=== PATIENT | female | born 1945 | race Caucasian/White ===

== ENCOUNTER 2017-12-01 04:32 | Inpatient (IN) ==
[2017-12-01] MEDS ORDERED: 0.9 % Sodium Chloride 1,000 ML IVC ONE (04:41)
[2017-12-01] MEDS ORDERED: Ondansetron 4 MG/2 ML VIAL IVP ONE (04:48)
[2017-12-01] MEDS ORDERED: Isovue-370 500 ML INFUS..BTL IV ONE (04:49)
--- NOTE | 2017-12-01 04:51 | Emergency Department Note ---
Disposition Clinical Impression: Irregular cardiac rhythm Sepsis Qualifiers: Sepsis type: sepsis due to unspecified organism Qualified Code(s): A41.9 - Sepsis, unspecified organism Urinary tract infection Qualifiers: Urinary tract infection type: site unspecified Hematuria presence: with hematuria Qualified Code(s): N39.0 - Urinary tract infection, site not specified Disposition: Still a Patient Condition: Fair Referrals: Marquis Cook MD [Primary Care Provider] - Forms: ED Satisfaction Letter Nausea/Vomiting/Diarrhea HPI - General Chief complaint: ED Nausea/Vomiting/Diarrhea Stated complaint: general illness Time Seen by Provider: 12/01/17 04:36 Source: patient, family, EMS Mode of arrival: EMS Limitations: no limitations Nursing Notes Reviewed: Yes Vital Signs Reviewed: Yes - History of Present Illness HPI Narrative: 72-year-old female history of CAD presents emergency department ED via EMS with concern of nausea vomiting abdominal pain possible fall. She woke up this morning at 2 o'clock meeting to use the restroom and felt nauseated has been thrown up. She reports a stabbing abdominal pain that is all over. She is unsure if she fell. 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 She denies any headache or neck pain. Denies any chest pain or shortness of breath. Denies cough congestion or fever. She has been experiencing some loose stools. States she is not feeling well. Patient takes Plavix for her history of coronary artery disease and stent placement. On arrival here to the emergency department patient is febrile 103.1 and tachycardic. Pt Subjective Complaint: nausea, vomiting, abdominal pain - Related Data Home Medications Medication Instructions Recorded Confirmed ALPRAZolam [Xanax 0.5 MG Tablet] 0.5 mg PO BID PRN 06/24/16 06/24/16 Allopurinol [Zyloprim 100 MG] 100 mg PO DAILY 06/24/16 06/24/16 Atorvastatin [Lipitor] 40 mg PO HS 06/24/16 06/24/16 Cholecalciferol (Vitamin D3) 1,000 unit PO DAILY 06/24/16 06/24/16 [Vitamin D] Clopidogrel [Plavix] 75 mg PO DAILY 06/24/16 06/24/16 DiphenhydraMINE [Benadryl] 25 mg PO Q4HR PRN 06/24/16 06/24/16 Furosemide [Lasix] 20 mg PO DAILY 06/24/16 06/24/16 Lactobacillus Acidophilus 1 each PO DAILY 06/24/16 06/24/16 [Acidophilus] Lisinopril [Zestril] 20 mg PO DAILY 06/24/16 06/24/16 Nadolol 60 mg PO DAILY 06/24/16 06/24/16 Oxycodone HCl/Acetaminophen 1 each PO TID PRN 06/24/16 06/24/16 [Percocet 5-325 mg Tablet] Pantoprazole Sodium [Protonix] 40 mg PO DAILY 06/24/16 06/24/16 Potassium Chloride [K-Tab ER] 20 meq PO DAILY 06/24/16 06/24/16 Sertraline [Zoloft] 100 mg PO DAILY 06/24/16 06/24/16 Allergies Allergy/AdvReac Type Severity Reaction Status Date / Time azithromycin [From Zithromax] Allergy Vomiting Verified 06/24/16 09:19 ciprofloxacin [From Cipro] Allergy Vomiting Verified 06/24/16 09:19 sulfamethoxazole Allergy Vomiting Verified 06/24/16 09:19 [From Bactrim] trimethoprim [From Bactrim] Allergy Vomiting Verified 06/24/16 09:19 All systems ED: reviewed and negative except as stated. Review of Systems: As Per HPI Constitutional: Denies: fever, chills ENT ED: Denies: congestion Cardiovascular: Denies: chest pain Respiratory: Denies: cough, dyspnea Gastrointestinal: Reports: abdominal pain, nausea, vomiting, diarrhea Genitourinary: Denies: dysuria Musculoskeletal: Denies: back pain, neck pain Neurological: Denies: headache, weakness, numbness Past Medical History - Past Medical History Attestation: Yes The following information was validated with the patient. Source: patient Medical history: Reports: DVT, diabetes, fibromyalgia, hypertension, TIA Surgical history: Reports: CORRIE/BSO Psychiatric history: Reports: depression - Social History Smoking Status: Never smoker Smokeless Tobacco Status: No Alcohol use: Reports: none Drug use: Reports: none Physical Exam - General Limitations: no limitations General appearance: alert, anxious, other (Tremulous) - Head Head exam: atraumatic, normocephalic, normal inspection - Eye Eye exam: Present: normal appearance, PERRL, EOMI. Absent: nystagmus - ENT ENT exam: normal exam, normal oropharynx, mucous membranes dry - Expanded ENT Exam Mouth exam: Present: normal external inspection Teeth exam: Present: normal inspection Throat exam: Present: normal inspection - Neck Neck exam: Present: normal inspection, full ROM, trachea midline. Absent: tenderness - Expanded Neck Exam Neck exam focused ED: Absent: midline tenderness - Chest Chest inspection: Present: normal inspection, symmetric chest wall rise - Respiratory Respiratory exam: Present: normal lung sounds bilaterally. Absent: respiratory distress, wheezes - Cardiovascular Cardiovascular exam: Present: normal rhythm, tachycardia, normal heart sounds - Expanded Cardiovascular Exam Peripheral pulses: 2+: radial (R), radial (L) - Abdominal Exam Abdominal exam: Present: soft, tenderness, guarding, normal bowel sounds. Absent: distention, rebound, rigidity - Extremities Exam Extremities exam: Present: normal inspection, full ROM, other (Her lower extremities are shaking in tremulous). Absent: tenderness, pedal edema - Back Exam Back exam: Present: normal inspection, full ROM. Absent: tenderness, CVA tenderness (R), CVA tenderness (L) - Neurological Exam Neurological exam: Present: alert, oriented X3, CN II-XII intact - Expanded Neurological Exam Patient oriented to: Present: person, place, time Speech: Present: fluid speech Cranial nerves: EOM function (II, III, IV, ): Normal, facial sensation (V): Normal, facial palsy (VII): Normal, gag reflex (IX): Normal, spinal accessory function (XI): Normal, tongue deviation (XII): Normal Motor strength - LUE: 5/5 Motor strength - RUE: 5/5 Motor strength - LLE: 5/5 Motor strength - RLE: 5/5 Upper motor neuron exam: tamika neglect: Absent bilaterally, pronator drift: Absent bilaterally Sensory exam upper extremity: light touch: Normal Sensory exam lower extremity: light touch: Normal Coma Scale Eye Opening: Spontaneous Coma Scale Motor Response: Obeys Commands Coma Scale Verbal Response: Oriented Coma Scale Total: 15 - Psychiatric Psychiatric exam: Present: normal affect, normal mood - Skin Skin exam: Present: warm, dry, intact, normal color, diaphoresis Course Course Narrative: Patient presents with acute onset nausea vomiting and potential fall. She does not recall falling but was on the ground. She takes Plavix. She is complaining of some of abdominal pain and loose stools. Review for vitals shows tachycardia and fever. Concerning for possible occult sepsis. On examination neurologic exam is normal without focal deficits. Denies any neck pain. Lungs are clear to auscultation. She is tachycardic and febrile. Denies any urinary symptoms. Her abdomen is a diffusely tender. Concerning for possible GI infection or UTI. Sepsis workup initiated. Will also obtain CT scan of the head abdomen and pelvis chest and cervical spine. She is slightly hypoxic 93% in tachycardic concerning for possible atypical pneumonia also possible pulmonary embolism. - Reevaluation(s) Reevaluation #1: Patient had a run of stable ventricular tachycardia. Her vitals remained stable at that time. No change in mental status. She quickly converted to sinus rhythm. She denies any pain or distress at that time. She will be transferred to the trauma room and placed on the clinical research manager with pads. Will check a magnesium level emesis could be likely electrolyte related given her nausea and vomiting. We have noticed that she continues to have a restless leg and sometimes causes some artifact however looking at the rhythm strip there was a run that is very consistent with ventricular tachycardia. When the patient makes a conscious effort to stop her legs she remains in normal sinus rhythm. To you to monitor. She continues to deny any chest pain. She reports some nausea and abdominal discomfort. CT images pending and will wait until she is more stable. Time: 05:33 Reevaluation #2: Images is still pending. Urinalysis is consistent with infection. She has a leukocytosis of 13. As she meets sepsis criteria she will be treated empirically with Zosyn vancomycin pending other sources of infection. She has pereira-sensitive from her prior urine culture to Klebsiella. Time: 06:40 Reevaluation #3: Patient signed out to Dr. Rolon. Please see note for further details and final disposition. Time: 06:55 Vital Signs Temperature 103.1 F H 12/01/17 04:41 Pulse Rate 127 12/01/17 04:41 Respiratory Rate 22 12/01/17 04:41 Blood Pressure 131/88 12/01/17 04:41 O2 Sat by Pulse Oximetry 92 12/01/17 04:41 Temperature 103.1 F H 12/01/17 04:41 Pulse Rate 96 12/01/17 06:11 Respiratory Rate 18 12/01/17 06:11 Blood Pressure 131/97 12/01/17 06:11 O2 Sat by Pulse Oximetry 96 12/01/17 06:11 Oxygen Delivery Oxygen Delivery Nasal Cannula Nausea/Vomiting/Diarrhea - [facility] Narrative Medical decision making narrative: Patient was discussed with my attending physician who agrees with ED management and final disposition. They independently evaluated the patient. Please refer to their attestation to this encounter for additional information. This note was generated by [employer] voice recognition software and as a result grammatical or spelling errors may occur using this program. - Medical Records Medical records reviewed: Yes I reviewed the patient's medical records. - Lab Data Lab results reviewed: Yes I reviewed the patient's lab results. Result diagrams: 12/01/17 05:00 Lab Results 12/01/17 12/01/17 12/01/17 Range/Units 05:00 05:00 05:00 WBC 13.5 H (4.3-11.1) K/mcL RBC 5.23 H (3.82-4.97) M/mcL Hgb 14.5 (11.5-15.4) g/dL Hct 42.6 (35.3-44.9) % MCV 81.5 L (83.0-100.0) fL MCH 27.7 L (28.0-33.3) pg MCHC 34.0 (31.6-35.5) g/dL RDW 13.7 (11.5-14.5) % Plt Count 221 (140-400) K/mcL MPV 10.1 (9.4-12.4) fL Immature Gran % 0.5 (0-4) % Seg Neutrophils % 94.1 % Lymphocytes % 3.4 % Monocytes % 1.3 % Eosinophils % 0.4 % Basophils % 0.3 % Neutrophils # 12.7 H (1.6-8.9) K/mcL Lymphocytes # 0.5 L (0.6-4.6) K/mcL Monocytes # 0.2 (0.0-1.3) K/mcL Eosinophils # 0.1 (0.0-0.6) K/mcL Basophils # 0.0 (0.0-0.2) K/mcL PT 12.5 H (9.4-12.1) Seconds INR 1.1 APTT 27.8 (26.0-36.0) Seconds Total Bilirubin 0.7 (0.3-1.0) mg/dL Direct Bilirubin 0.2 (0.0-0.2) mg/dL Indirect Bilirubin 0.5 (0.0-1.2) mg/dL AST 18 (13-39) Units/L ALT 18 (7-52) Units/L Alkaline Phosphatase 139 H (34-104) Units/L Troponin I 0.03 (< 0.04) ng/mL Serum Total Protein 6.9 (6.4-8.9) g/dL Albumin 4.4 (3.5-5.7) g/dL Globulin 2.5 (2.4-3.5) g/dL Albumin/Globulin Ratio 1.8 (1.1-2.2) Lipase 57 (11-82) Units/L Urine Color (Yellow) Urine Clarity (Clear) Urine pH (5.0-8.0) pH Units Ur Specific [place] (1.010-1.025) Urine Protein (Neg-Trace) mg/dL Urine Glucose (UA) (Normal) mg/dL Urine Ketones (Negative) mg/dL Urine Blood (Negative) Urine Nitrite (Negative) Urine Bilirubin (Negative) Urine Urobilinogen (Normal) mg/dL Ur Leukocyte Esterase (Negative) 12/01/17 Range/Units 06:10 WBC (4.3-11.1) K/mcL RBC (3.82-4.97) M/mcL Hgb (11.5-15.4) g/dL Hct (35.3-44.9) % MCV (83.0-100.0) fL MCH (28.0-33.3) pg MCHC (31.6-35.5) g/dL RDW (11.5-14.5) % Plt Count (140-400) K/mcL MPV (9.4-12.4) fL Immature Gran % (0-4) % Seg Neutrophils % % Lymphocytes % % Monocytes % % Eosinophils % % Basophils % % Neutrophils # (1.6-8.9) K/mcL Lymphocytes # (0.6-4.6) K/mcL Monocytes # (0.0-1.3) K/mcL Eosinophils # (0.0-0.6) K/mcL Basophils # (0.0-0.2) K/mcL PT (9.4-12.1) Seconds INR APTT (26.0-36.0) Seconds Total Bilirubin (0.3-1.0) mg/dL Direct Bilirubin (0.0-0.2) mg/dL Indirect Bilirubin (0.0-1.2) mg/dL AST (13-39) Units/L ALT (7-52) Units/L Alkaline Phosphatase (34-104) Units/L Troponin I (< 0.04) ng/mL Serum Total Protein (6.4-8.9) g/dL Albumin (3.5-5.7) g/dL Globulin (2.4-3.5) g/dL Albumin/Globulin Ratio (1.1-2.2) Lipase (11-82) Units/L Urine Color Yellow (Yellow) Urine Clarity Cloudy A (Clear) Urine pH 5.0 (5.0-8.0) pH Units Ur Specific [place] 1.023 (1.010-1.025) Urine Protein 100 H (Neg-Trace) mg/dL Urine Glucose (UA) Normal (Normal) mg/dL Urine Ketones Negative (Negative) mg/dL Urine Blood Moderate H (Negative) Urine Nitrite Positive A (Negative) Urine Bilirubin Negative (Negative) Urine Urobilinogen Normal (Normal) mg/dL Ur Leukocyte Esterase Large H (Negative) - EKG Data EKG attestation: Yes I reviewed and interpreted this EKG. EKG results narrative: EKG performed 522 normal sinus rhythm 10 9 bpm, normal axis, good R wave progression, no ST elevations or depressions. Compared to prior EKG performed 09/08/2017 normal sinus rhythm 75 bpm with similar consistent findings. S.B.A.R. - [email or web address] Situation: Demographics, MOA Background: Presenting Complaint, Relevant PMH, Meds, & Allergies Assessment: Vital Signs, Course and respsone to treatment, Exam Concerns, Patient/Family Expectation, Pertinant Lab Results, Outstanding Labs Recommendation: Barrier(s) to disposition, Recommendation based on pending studies, treatments, or consults S.B.A.RCollin Report Given to: Dr. Thom Hdez Repor Time: 06:55
[2017-12-01 05:13] LABS: Basophils % 0.3 %; Eosinophils # 0.1 K/mcL (0.0-0.6); Eosinophils % 0.4 %; Hematocrit 42.6 % (35.3-44.9); Hemoglobin 14.5 g/dL (11.5-15.4); Immature Granulocytes % 0.5 % (0-4); Lymphocytes # 0.5 K/mcL (0.6-4.6); Lymphocytes % 3.4 %; Mean Corpuscular Hemoglobin 27.7 pg (28.0-33.3); Mean Corpuscular Volume 81.5 fL (83.0-100.0); Mean Platelet Volume 10.1 fL (9.4-12.4); Monocytes # 0.2 K/mcL (0.0-1.3); Monocytes % 1.3 %; Neutrophils # 12.7 K/mcL (1.6-8.9); Platelet Count 221 K/mcL (140-400); Red Blood Count 5.23 M/mcL (3.82-4.97); Red Cell Distribution Width 13.7 % (11.5-14.5); Segmented Neutrophils % 94.1 %
[2017-12-01 05:18] LABS: INR 1.1; Prothrombin Time 12.5 Seconds (9.4-12.1)
[2017-12-01 05:20] LABS: Activated Partial Thrombo Time 27.8 Seconds (26.0-36.0)
[2017-12-01 05:33] LABS: Albumin 4.4 g/dL (3.5-5.7); Albumin/Globulin Ratio 1.8 (1.1-2.2); Bilirubin,Direct 0.2 mg/dL (0.0-0.2); Bilirubin,Indirect 0.5 mg/dL (0.0-1.2); Bilirubin,Total 0.7 mg/dL (0.3-1.0); Globulin 2.5 g/dL (2.4-3.5); Total Protein 6.9 g/dL (6.4-8.9)
[2017-12-01 05:34] LABS: Troponin I 0.03 ng/mL (< 0.04)
--- NOTE | 2017-12-01 05:58 | Emergency Department Note ---
Disposition Clinical Impression: Sepsis Qualifiers: Sepsis type: sepsis due to unspecified organism Qualified Code(s): A41.9 - Sepsis, unspecified organism Disposition: Admitted As Inpatient Forms: ED Satisfaction Letter General Adult HPI - General Chief complaint: ED Nausea/Vomiting/Diarrhea Stated complaint: general illness Time Seen by Provider: 12/01/17 04:36 Source: patient, family, EMS - History of Present Illness Pain Scale: 0 - Related Data Home Medications Medication Instructions Recorded Confirmed ALPRAZolam [Xanax 0.5 MG Tablet] 0.5 mg PO BID PRN 06/24/16 06/24/16 Allopurinol [Zyloprim 100 MG] 100 mg PO DAILY 06/24/16 06/24/16 Atorvastatin [Lipitor] 40 mg PO HS 06/24/16 06/24/16 Cholecalciferol (Vitamin D3) 1,000 unit PO DAILY 06/24/16 06/24/16 [Vitamin D] Clopidogrel [Plavix] 75 mg PO DAILY 06/24/16 06/24/16 DiphenhydraMINE [Benadryl] 25 mg PO Q4HR PRN 06/24/16 06/24/16 Furosemide [Lasix] 20 mg PO DAILY 06/24/16 06/24/16 Lactobacillus Acidophilus 1 each PO DAILY 06/24/16 06/24/16 [Acidophilus] Lisinopril [Zestril] 20 mg PO DAILY 06/24/16 06/24/16 Nadolol 60 mg PO DAILY 06/24/16 06/24/16 Oxycodone HCl/Acetaminophen 1 each PO TID PRN 06/24/16 06/24/16 [Percocet 5-325 mg Tablet] Pantoprazole Sodium [Protonix] 40 mg PO DAILY 06/24/16 06/24/16 Potassium Chloride [K-Tab ER] 20 meq PO DAILY 06/24/16 06/24/16 Sertraline [Zoloft] 100 mg PO DAILY 06/24/16 06/24/16 Allergies Allergy/AdvReac Type Severity Reaction Status Date / Time azithromycin [From Zithromax] Allergy Vomiting Verified 06/24/16 09:19 ciprofloxacin [From Cipro] Allergy Vomiting Verified 06/24/16 09:19 sulfamethoxazole Allergy Vomiting Verified 06/24/16 09:19 [From Bactrim] trimethoprim [From Bactrim] Allergy Vomiting Verified 06/24/16 09:19 Past Medical History - Past Medical History Medical history: Reports: DVT, diabetes, fibromyalgia, hypertension, TIA Surgical history: Reports: CORRIE/BSO Psychiatric history: Reports: depression - Social History Smoking Status: Never smoker Smokeless Tobacco Status: No Alcohol use: Reports: none Drug use: Reports: none Physical Exam - General General appearance: alert Course Vital Signs Temperature 103.1 F H 12/01/17 04:41 Pulse Rate 127 12/01/17 04:41 Respiratory Rate 22 12/01/17 04:41 Blood Pressure 131/88 12/01/17 04:41 O2 Sat by Pulse Oximetry 92 12/01/17 04:41 Temperature 103.1 F H 12/01/17 04:41 Pulse Rate 100 12/01/17 05:47 Respiratory Rate 28 12/01/17 05:47 Blood Pressure 130/55 12/01/17 05:47 O2 Sat by Pulse Oximetry 96 12/01/17 05:47 Oxygen Delivery Oxygen Delivery Nasal Cannula Medical Decision Making - Lab Data Result diagrams: 12/01/17 05:00 Lab Results 12/01/17 12/01/17 12/01/17 Range/Units 05:00 05:00 05:00 WBC 13.5 H (4.3-11.1) K/mcL RBC 5.23 H (3.82-4.97) M/mcL Hgb 14.5 (11.5-15.4) g/dL Hct 42.6 (35.3-44.9) % MCV 81.5 L (83.0-100.0) fL MCH 27.7 L (28.0-33.3) pg MCHC 34.0 (31.6-35.5) g/dL RDW 13.7 (11.5-14.5) % Plt Count 221 (140-400) K/mcL MPV 10.1 (9.4-12.4) fL Immature Gran % 0.5 (0-4) % Seg Neutrophils % 94.1 % Lymphocytes % 3.4 % Monocytes % 1.3 % Eosinophils % 0.4 % Basophils % 0.3 % Neutrophils # 12.7 H (1.6-8.9) K/mcL Lymphocytes # 0.5 L (0.6-4.6) K/mcL Monocytes # 0.2 (0.0-1.3) K/mcL Eosinophils # 0.1 (0.0-0.6) K/mcL Basophils # 0.0 (0.0-0.2) K/mcL PT 12.5 H (9.4-12.1) Seconds INR 1.1 APTT 27.8 (26.0-36.0) Seconds Total Bilirubin 0.7 (0.3-1.0) mg/dL Direct Bilirubin 0.2 (0.0-0.2) mg/dL Indirect Bilirubin 0.5 (0.0-1.2) mg/dL AST 18 (13-39) Units/L ALT 18 (7-52) Units/L Alkaline Phosphatase 139 H (34-104) Units/L Troponin I 0.03 (< 0.04) ng/mL Serum Total Protein 6.9 (6.4-8.9) g/dL Albumin 4.4 (3.5-5.7) g/dL Globulin 2.5 (2.4-3.5) g/dL Albumin/Globulin Ratio 1.8 (1.1-2.2) Lipase 57 (11-82) Units/L Attestation Statement - Attestation Attestation: I examined this patient and my medical decision-making was reviewed with the Resident Physician. I agree with the documented findings, disposition and treatment plan as described except to the extent set forth below. 72 year old female presents to the ED with complaints of NVD and is febrile and tachycardiac and there is concern for SEPSIS at this time. Lashay states that she owkeup at 0230 this monring and was feel syncopal and tried to urinate and then called EMS due to weakness. Lashay has restless leg syndrome and at times when her legs shake it appers to have runs of Vtach but when she stops they return to regular rhythm. That being siad there was a run for about 2-3 secondary of possible polymorphic Vtach, we will obtain a magnesium. Lashay will have labs for sepsis and CT scan accordingly and then admit ot medicine. IVF currenlty per sepsis treatment and ABX therapy once source is found
[2017-12-01] MEDS ORDERED: Piperacillin/Tazobactam 3.375 GM in 0.9 % Sodium Chloride Mini Bag 100 ML IVPB ONE (06:23)
[2017-12-01 06:33] LABS: Bilirubin,Urine Negative (Negative); Blood,Urine Moderate (Negative); Clarity,Urine Cloudy (Clear); Color,Urine Yellow (Yellow); Glucose,Urine (UA) Normal (Normal); Ketones,Urine Negative (Negative); Leukocyte Esterase,Urine Large (Negative); Nitrite,Urine Positive (Negative); Protein,Urine 100 mg/dL (Neg-Trace); Specific Gravity,Urine 1.023 (1.010-1.025); Urobilinogen,Urine Normal (Normal)
[2017-12-01 06:40] LABS: Bacteria,Urine Many per hpf (None-Few); Squamous Epithelial Cell,Urine Many per lpf (None-Few); WBC,Urine TNTC per hpf (0-3)
--- NOTE | 2017-12-01 06:47 | Emergency Department Note ---
Disposition Clinical Impression: Irregular cardiac rhythm, Enteritis Sepsis Qualifiers: Sepsis type: sepsis due to unspecified organism Qualified Code(s): A41.9 - Sepsis, unspecified organism Urinary tract infection Qualifiers: Urinary tract infection type: site unspecified Hematuria presence: with hematuria Qualified Code(s): N39.0 - Urinary tract infection, site not specified Disposition: Admitted As Inpatient Condition: Fair Referrals: Marquis Cook MD [Primary Care Provider] - Forms: ED Satisfaction Letter Time of Disposition: 09:27 Nausea/Vomiting/Diarrhea HPI - General Chief complaint: ED Nausea/Vomiting/Diarrhea Stated complaint: general illness Time Seen by Provider: 12/01/17 04:36 Source: patient, family, EMS Mode of arrival: EMS Limitations: no limitations Nursing Notes Reviewed: Yes Vital Signs Reviewed: Yes - History of Present Illness Pt Subjective Complaint: nausea, vomiting, abdominal pain - Related Data Home Medications Medication Instructions Recorded Confirmed ALPRAZolam [Xanax 0.5 MG Tablet] 0.5 mg PO BID PRN 06/24/16 12/01/17 Allopurinol [Zyloprim 100 MG] 100 mg PO DAILY 06/24/16 12/01/17 Atorvastatin [Lipitor] 40 mg PO HS 06/24/16 12/01/17 Cholecalciferol (Vitamin D3) 1,000 unit PO DAILY 06/24/16 12/01/17 [Vitamin D] Clopidogrel [Plavix] 75 mg PO DAILY 06/24/16 12/01/17 DiphenhydraMINE [Benadryl] 25 mg PO Q4HR PRN 06/24/16 12/01/17 Lisinopril [Zestril] 10 mg PO DAILY 06/24/16 12/01/17 Nadolol 60 mg PO DAILY 06/24/16 12/01/17 Oxycodone HCl/Acetaminophen 1 each PO TID PRN 06/24/16 12/01/17 [Percocet 5-325 mg Tablet] Sertraline [Zoloft] 100 mg PO DAILY 06/24/16 12/01/17 Lansoprazole [Prevacid] 30 mg PO DAILY 12/01/17 12/01/17 Sitagliptin Phosphate [Januvia] 50 mg PO DAILY 12/01/17 12/01/17 Allergies Allergy/AdvReac Type Severity Reaction Status Date / Time azithromycin [From Zithromax] Allergy Vomiting Verified 06/24/16 09:19 ciprofloxacin [From Cipro] Allergy Vomiting Verified 06/24/16 09:19 sulfamethoxazole Allergy Vomiting Verified 06/24/16 09:19 [From Bactrim] trimethoprim [From Bactrim] Allergy Vomiting Verified 06/24/16 09:19 Constitutional: Denies: fever, chills ENT ED: Denies: congestion Cardiovascular: Denies: chest pain Respiratory: Denies: cough, dyspnea Gastrointestinal: Reports: abdominal pain, nausea, vomiting, diarrhea Genitourinary: Denies: dysuria Musculoskeletal: Denies: back pain, neck pain Neurological: Denies: headache, weakness, numbness Past Medical History - Past Medical History Medical history: Reports: DVT, diabetes, fibromyalgia, hypertension, TIA Surgical history: Reports: CORRIE/BSO Psychiatric history: Reports: depression - Social History Smoking Status: Never smoker Smokeless Tobacco Status: No Alcohol use: Reports: none Drug use: Reports: none Physical Exam - General Limitations: no limitations General appearance: alert, anxious, other (Tremulous) Course Course Narrative: Patient is a sign out from previous team. Please see their notes for any additional detail. In summary, patient is a 72-year-old female with past medical history of CAD, she presented today due to nausea, vomiting, diffuse abdominal pain, was found on ground by EMS. Possible fall. States that she has been vomiting since 2:00 this morning. Reported stabbing abdominal discomfort all over. She is not sure if she fell or hit her head. She denies any head or neck pain, chest pain, shortness breath, fevers. She has had some loose stools. Just generally feels unwell. Patient was febrile and tachycardic on presentation. Lab workup shows elevated white blood cell count, UTI. CT head, cervical spine, abdomen and pelvis, CT of the chest was ordered. Currently waiting on these results. Vancomycin and Zosyn have been started. Patient also had one 2-3 beat episode of V. tach while being monitored. No symptoms during that episode. 09:25 workup shows enteritis. Otherwise, head CT, cervical spine CT shows no acute abnormalities. Again, patient has UTI and is being treated with antibiotics at this time. Patient has been accepted to the hospitalist for further care. Cervical Spine CT 12/01/17 04:48 IMPRESSION: 1.No acute abnormality of the cervical spine. D/ / Vickey Santiago MD / Vickey Santiago MD Interpreting Provider: Vickey Santiago MD Head CT 12/01/17 04:48 IMPRESSION: No acute intracranial abnormality. Senescent changes including chronic microvascular change. Sphenoid sinus inflammation, unchanged from prior exam. D/ / 12/01/2017 08:24:35 Mine Brito MD / jacob Interpreting Provider: Mine Brito MD Abdomen/Pelvis CT 12/01/17 04:49 IMPRESSION: 1. Few non dilated fluid-filled loops of small bowel which may represent a small bowel enteritis. 2. Bibasilar atelectasis. 3. No urinary tract calcifications. D/ / Vickey Santiago MD / Vickey Santiago MD Interpreting Provider: Vickey Santiago MD Chest X-Ray 12/01/17 08:45 IMPRESSION: Suboptimal inspiration. No definite acute pulmonary finding. D/ / Errol Gomez MD / Errol Gomez MD Interpreting Provider: Errol Gomez MD Vital Signs Temperature 103.1 F H 12/01/17 04:41 Pulse Rate 127 12/01/17 04:41 Respiratory Rate 22 12/01/17 04:41 Blood Pressure 131/88 12/01/17 04:41 O2 Sat by Pulse Oximetry 92 12/01/17 04:41 Temperature 98.7 F 12/01/17 08:02 Pulse Rate 82 12/01/17 08:36 Respiratory Rate 16 12/01/17 08:36 Blood Pressure 119/52 12/01/17 08:36 O2 Sat by Pulse Oximetry 95 12/01/17 08:36 Oxygen Delivery Oxygen Delivery Nasal Cannula Nausea/Vomiting/Diarrhea - [facility] Narrative Medical decision making narrative: Patient is a sign out from previous team. Please see their notes for any additional detail. In summary, patient is a 72-year-old female with past medical history of CAD, she presented today due to nausea, vomiting, diffuse abdominal pain, was found on ground by EMS. Possible fall. States that she has been vomiting since 2:00 this morning. Reported stabbing abdominal discomfort all over. She is not sure if she fell or hit her head. She denies any head or neck pain, chest pain, shortness breath, fevers. She has had some loose stools. Just generally feels unwell. Patient was febrile and tachycardic on presentation. Lab workup shows elevated white blood cell count, UTI. CT head, cervical spine, abdomen and pelvis, CT of the chest was ordered. Currently waiting on these results. Vancomycin and Zosyn have been started. Patient also had one 2-3 beat episode of V. tach while being monitored. No symptoms during that episode. 09:25 workup shows enteritis. Otherwise, head CT, cervical spine CT shows no acute abnormalities. Again, patient has UTI and is being treated with antibiotics at this time. Patient has been accepted to the hospitalist for further care. This documentation is done with the assistance of Dragon dictation. Despite efforts made to ensure accuracy, there may be inaccuracies in sailing officer or spelling and typographical errors. I examined this patient and my medical decision-making was reviewed with the Resident Physician. I agree with the documented findings, disposition and treatment plan as described except to the extent set forth below. Patient is a sign out from the evening ER team, patient was found down on the floor. Getting CTs and x-rays. They thought she had SIRS And started on antibiotics. Waiting scan and then admit admission. Patient was seen this morning with me and Dr. Amador, agree with his evaluation management plan, I supervised the care of the patient's. Cervical Spine CT 12/01/17 04:48 IMPRESSION: 1.No acute abnormality of the cervical spine. D/ / Vickey Santiago MD / Vickey Santiago MD Interpreting Provider: Vickey Santiago MD Head CT 12/01/17 04:48 IMPRESSION: No acute intracranial abnormality. Senescent changes including chronic microvascular change. Sphenoid sinus inflammation, unchanged from prior exam. D/ / 12/01/2017 08:24:35 Mine Brito MD / jacob Interpreting Provider: Mine Brito MD Abdomen/Pelvis CT 12/01/17 04:49 IMPRESSION: 1. Few non dilated fluid-filled loops of small bowel which may represent a small bowel enteritis. 2. Bibasilar atelectasis. 3. No urinary tract calcifications. D/ / Vickey Santiago MD / Vickey Santiago MD Interpreting Provider: Vickey Santiago MD Chest X-Ray 12/01/17 08:45 IMPRESSION: Suboptimal inspiration. No definite acute pulmonary finding. D/ / Errol Gomez MD / Errol Gomez MD Interpreting Provider: Errol Gomez MD 0922 hrs.: Patient Discussed with Hospitalist. They Are in Agreement with Plan. - Medical Records Medical records reviewed: Yes I reviewed the patient's medical records. - Lab Data Lab results reviewed: Yes I reviewed the patient's lab results. Result diagrams: 12/01/17 05:00 12/01/17 05:00 Lab Results 12/01/17 12/01/17 12/01/17 Range/Units 05:00 05:00 05:00 WBC 13.5 H (4.3-11.1) K/mcL RBC 5.23 H (3.82-4.97) M/mcL Hgb 14.5 (11.5-15.4) g/dL Hct 42.6 (35.3-44.9) % MCV 81.5 L (83.0-100.0) fL MCH 27.7 L (28.0-33.3) pg MCHC 34.0 (31.6-35.5) g/dL RDW 13.7 (11.5-14.5) % Plt Count 221 (140-400) K/mcL MPV 10.1 (9.4-12.4) fL Immature Gran % 0.5 (0-4) % Seg Neutrophils % 94.1 % Lymphocytes % 3.4 % Monocytes % 1.3 % Eosinophils % 0.4 % Basophils % 0.3 % Neutrophils # 12.7 H (1.6-8.9) K/mcL Lymphocytes # 0.5 L (0.6-4.6) K/mcL Monocytes # 0.2 (0.0-1.3) K/mcL Eosinophils # 0.1 (0.0-0.6) K/mcL Basophils # 0.0 (0.0-0.2) K/mcL PT 12.5 H (9.4-12.1) Seconds INR 1.1 APTT 27.8 (26.0-36.0) Seconds VBG pH (7.32-7.42) pH Units VBG pCO2 (41-51) mmHg VBG pO2 (25-50) mmHg VBG HCO3 (21-27) mEq/L Sodium 139 (136-145) mEq/L Potassium 3.5 (3.5-5.1) mEq/L Chloride 105 (98-107) mEq/L Carbon Dioxide 20 L (23-29) mEq/L BUN 19 (8-23) mg/dL Creatinine 1.14 (0.60-1.20) mg/dL Est GFR ( Amer) 57 L (> 60) Est GFR (Non-Af Amer) 47 L (> 60) BUN/Creatinine Ratio 17 (6-26) Glucose 165 H (70-105) mg/dL Calculated Osmolality 294 (280-300) Lactic Acid (0.5-2.2) mmol/L Calcium 9.3 (8.6-10.3) mg/dL Magnesium (1.6-2.6) mg/dL Total Bilirubin 0.7 (0.3-1.0) mg/dL Direct Bilirubin 0.2 (0.0-0.2) mg/dL Indirect Bilirubin 0.5 (0.0-1.2) mg/dL AST 18 (13-39) Units/L ALT 18 (7-52) Units/L Alkaline Phosphatase 139 H (34-104) Units/L Troponin I 0.03 (< 0.04) ng/mL Serum Total Protein 6.9 (6.4-8.9) g/dL Albumin 4.4 (3.5-5.7) g/dL Globulin 2.5 (2.4-3.5) g/dL Albumin/Globulin Ratio 1.8 (1.1-2.2) Lipase 57 (11-82) Units/L Beta-Hydroxybutyric Acd (0.02-0.27) mmol/L Urine Color (Yellow) Urine Clarity (Clear) Urine pH (5.0-8.0) pH Units Ur Specific [place] (1.010-1.025) Urine Protein (Neg-Trace) mg/dL Urine Glucose (UA) (Normal) mg/dL Urine Ketones (Negative) mg/dL Urine Blood (Negative) Urine Nitrite (Negative) Urine Bilirubin (Negative) Urine Urobilinogen (Normal) mg/dL Ur Leukocyte Esterase (Negative) Urine Microscopic RBC (0-3) per hpf Urine Microscopic WBC (0-3) per hpf Ur Squamous Epith Cells (None-Few) per lpf Urine Bacteria (None-Few) per hpf Hyaline Casts (None-Few) per lpf Ur Culture Indicated? (NO) 12/01/17 12/01/17 12/01/17 Range/Units 06:10 06:30 06:30 WBC (4.3-11.1) K/mcL RBC (3.82-4.97) M/mcL Hgb (11.5-15.4) g/dL Hct (35.3-44.9) % MCV (83.0-100.0) fL MCH (28.0-33.3) pg MCHC (31.6-35.5) g/dL RDW (11.5-14.5) % Plt Count (140-400) K/mcL MPV (9.4-12.4) fL Immature Gran % (0-4) % Seg Neutrophils % % Lymphocytes % % Monocytes % % Eosinophils % % Basophils % % Neutrophils # (1.6-8.9) K/mcL Lymphocytes # (0.6-4.6) K/mcL Monocytes # (0.0-1.3) K/mcL Eosinophils # (0.0-0.6) K/mcL Basophils # (0.0-0.2) K/mcL PT (9.4-12.1) Seconds INR APTT (26.0-36.0) Seconds VBG pH (7.32-7.42) pH Units VBG pCO2 (41-51) mmHg VBG pO2 (25-50) mmHg VBG HCO3 (21-27) mEq/L Sodium (136-145) mEq/L Potassium (3.5-5.1) mEq/L Chloride (98-107) mEq/L Carbon Dioxide (23-29) mEq/L BUN (8-23) mg/dL Creatinine (0.60-1.20) mg/dL Est GFR ( Amer) (> 60) Est GFR (Non-Af Amer) (> 60) BUN/Creatinine Ratio (6-26) Glucose (70-105) mg/dL Calculated Osmolality (280-300) Lactic Acid 0.9 (0.5-2.2) mmol/L Calcium (8.6-10.3) mg/dL Magnesium 1.0 L (1.6-2.6) mg/dL Total Bilirubin (0.3-1.0) mg/dL Direct Bilirubin (0.0-0.2) mg/dL Indirect Bilirubin (0.0-1.2) mg/dL AST (13-39) Units/L ALT (7-52) Units/L Alkaline Phosphatase (34-104) Units/L Troponin I (< 0.04) ng/mL Serum Total Protein (6.4-8.9) g/dL Albumin (3.5-5.7) g/dL Globulin (2.4-3.5) g/dL Albumin/Globulin Ratio (1.1-2.2) Lipase (11-82) Units/L Beta-Hydroxybutyric Acd (0.02-0.27) mmol/L Urine Color Yellow (Yellow) Urine Clarity Cloudy A (Clear) Urine pH 5.0 (5.0-8.0) pH Units Ur Specific [place] 1.023 (1.010-1.025) Urine Protein 100 H (Neg-Trace) mg/dL Urine Glucose (UA) Normal (Normal) mg/dL Urine Ketones Negative (Negative) mg/dL Urine Blood Moderate H (Negative) Urine Nitrite Positive A (Negative) Urine Bilirubin Negative (Negative) Urine Urobilinogen Normal (Normal) mg/dL Ur Leukocyte Esterase Large H (Negative) Urine Microscopic RBC 5-15 H (0-3) per hpf Urine Microscopic WBC TNTC H (0-3) per hpf Ur Squamous Epith Cells Many H (None-Few) per lpf Urine Bacteria Many H (None-Few) per hpf Hyaline Casts Few (None-Few) per lpf Ur Culture Indicated? NO. A (NO) 12/01/17 12/01/17 Range/Units 06:57 07:09 WBC (4.3-11.1) K/mcL RBC (3.82-4.97) M/mcL Hgb (11.5-15.4) g/dL Hct (35.3-44.9) % MCV (83.0-100.0) fL MCH (28.0-33.3) pg MCHC (31.6-35.5) g/dL RDW (11.5-14.5) % Plt Count (140-400) K/mcL MPV (9.4-12.4) fL Immature Gran % (0-4) % Seg Neutrophils % % Lymphocytes % % Monocytes % % Eosinophils % % Basophils % % Neutrophils # (1.6-8.9) K/mcL Lymphocytes # (0.6-4.6) K/mcL Monocytes # (0.0-1.3) K/mcL Eosinophils # (0.0-0.6) K/mcL Basophils # (0.0-0.2) K/mcL PT (9.4-12.1) Seconds INR APTT (26.0-36.0) Seconds VBG pH 7.39 (7.32-7.42) pH Units VBG pCO2 36 L (41-51) mmHg VBG pO2 109 H (25-50) mmHg VBG HCO3 22 (21-27) mEq/L Sodium (136-145) mEq/L Potassium (3.5-5.1) mEq/L Chloride (98-107) mEq/L Carbon Dioxide (23-29) mEq/L BUN (8-23) mg/dL Creatinine (0.60-1.20) mg/dL Est GFR ( Amer) (> 60) Est GFR (Non-Af Amer) (> 60) BUN/Creatinine Ratio (6-26) Glucose (70-105) mg/dL Calculated Osmolality (280-300) Lactic Acid (0.5-2.2) mmol/L Calcium (8.6-10.3) mg/dL Magnesium (1.6-2.6) mg/dL Total Bilirubin (0.3-1.0) mg/dL Direct Bilirubin (0.0-0.2) mg/dL Indirect Bilirubin (0.0-1.2) mg/dL AST (13-39) Units/L ALT (7-52) Units/L Alkaline Phosphatase (34-104) Units/L Troponin I (< 0.04) ng/mL Serum Total Protein (6.4-8.9) g/dL Albumin (3.5-5.7) g/dL Globulin (2.4-3.5) g/dL Albumin/Globulin Ratio (1.1-2.2) Lipase (11-82) Units/L Beta-Hydroxybutyric Acd 0.66 H (0.02-0.27) mmol/L Urine Color (Yellow) Urine Clarity (Clear) Urine pH (5.0-8.0) pH Units Ur Specific [place] (1.010-1.025) Urine Protein (Neg-Trace) mg/dL Urine Glucose (UA) (Normal) mg/dL Urine Ketones (Negative) mg/dL Urine Blood (Negative) Urine Nitrite (Negative) Urine Bilirubin (Negative) Urine Urobilinogen (Normal) mg/dL Ur Leukocyte Esterase (Negative) Urine Microscopic RBC (0-3) per hpf Urine Microscopic WBC (0-3) per hpf Ur Squamous Epith Cells (None-Few) per lpf Urine Bacteria (None-Few) per hpf Hyaline Casts (None-Few) per lpf Ur Culture Indicated? (NO) - Radiology Data Radiology results reviewed: Yes I reviewed the patient's radiology results. S.B.A.R. - S.B.A.R. Situation: Demographics, MOA Background: Presenting Complaint, Relevant PMH, Meds, & Allergies Assessment: Vital Signs, Course and respsone to treatment, Exam Concerns, Patient/Family Expectation, Pertinant Lab Results Recommendation: Barrier(s) to disposition, Recommendation based on pending studies, treatments, or consults S.B.A.R. Report Given to: Dr. Hayes
[2017-12-01 06:54] LABS: Hyaline Casts,Urine Few per lpf (None-Few)
[2017-12-01 07:14] LABS: VBG HCO3 22 mEq/L (21-27); VBG PCO2 36 mmHg (41-51); VBG PH 7.39 pH Units (7.32-7.42); VBG PO2 109 mmHg (25-50)
[2017-12-01 07:58] LABS: Calcium 9.3 mg/dL (8.6-10.3); Potassium 3.5 mEq/L (3.5-5.1)
--- NOTE | 2017-12-01 08:00 | Electrocardiograph Report ---
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
[2017-12-01] MEDS ORDERED: Naloxone 0.4 MG/ML INJ IVP PRN (09:49)
--- NOTE | 2017-12-01 10:08 | Internal Med History&Physical ---
Date of Encounter: 12/01/17 Time of Encounter: 10:05 Internal Medicine - H&P: HPI Chief complaint: Fever, diarrhea, weakness and fall Admitted From: Home Plans for Post Hospital Care: Home History of present illness: Ms. Gramajo is a 72 year old female with a past medical history coronary artery disease as per history who presented this morning to the EMS after undergoing some diarrhea and abdominal pain. The patient's is at the bedside and is giving her much better history. The patient is somnolent she does open her eyes and but goes right back to sleep. The history here is a combination of EMR review as well as discussing with the patient's . He stands me that the patient has been having some diarrhea for the last few days and this morning around 2 AM had the fever although they did not check it at home. There is a documentation of 103 in the ER. She stood up and then was uncomfortable and also felt chills and then was brought into the hospital with that. It is unclear to me whether she hit her head although there is documentation in the EMR that she did. She underwent extensive investigations including CAT scan of her head cervical spine abdominal pelvis and chest and vancomycin and Zosyn was started. Patient had some tachycardia on admission and did receive a fluid bolus after which her tachycardia improved significantly. Her lactic acid was not elevated investigations have been sent. Her CT head and cervical spine do not demonstrative any acute intracranial abnormalities or any fractures. Abdominal pelvis CT scan did show evidence of enteritis and a chest x-ray did not show any pneumonia or focal consolidations. Her urinalysis was dirty and the patient has already received vancomycin and Zosyn. Patient denies any headaches, photophobia, neck stiffness. She does not denies any sick contacts. Her states that she is a diabetic and does have what he explains to be autonomic gastro-enteral issues with the alternating diarrhea and constipation. This happens off and on. To me she denies any abdominal pain at this point. Past Med Surg Social Fam HX - Past Medical History Medical history: DVT, diabetes, fibromyalgia, hypertension, TIA Additional medical history: Hearing Loss. Hemorrhoids. Anemia. Insomnia. Fatigue Psychiatric history: depression - Past Surgical History Surgical History: CORRIE/BSO Additional surgical history: Neck. Back. Bladder. CTR. Breast Biospy. Eye - Social History Smoking Status: Never smoker Smokeless Tobacco Status: No Alcohol use: none Drug use: none - Additional Family History Additional family history: Patient denies any family history of chronic gastroenteritis problems although she does have a history of coronary artery disease in her father Internal Medicine - H&P: Meds ALPRAZolam [Xanax 0.5 MG Tablet] 0.5 mg PO BID PRN 06/24/16 [History] Allopurinol [Zyloprim 100 MG] 100 mg PO DAILY 06/24/16 [History] Atorvastatin [Lipitor] 40 mg PO HS 06/24/16 [History] Cholecalciferol (Vitamin D3) [Vitamin D] 1,000 unit PO DAILY 06/24/16 [History] Clopidogrel [Plavix] 75 mg PO DAILY 06/24/16 [History] DiphenhydraMINE [Benadryl] 25 mg PO Q4HR PRN 06/24/16 [History] Lisinopril [Zestril] 10 mg PO DAILY 06/24/16 [History] Nadolol 60 mg PO DAILY 06/24/16 [History] Oxycodone HCl/Acetaminophen [Percocet 5-325 mg Tablet] 1 each PO TID PRN [History] Sertraline [Zoloft] 100 mg PO DAILY 06/24/16 [History] Lansoprazole [Prevacid] 30 mg PO DAILY 12/01/17 [History] Sitagliptin Phosphate [Januvia] 50 mg PO DAILY 12/01/17 [History] 3 Allergy/AdvReac Type Severity Reaction Status Date / Time azithromycin [From Zithromax] Allergy Vomiting Verified 06/24/16 09:19 ciprofloxacin [From Cipro] Allergy Vomiting Verified 06/24/16 09:19 sulfamethoxazole Allergy Vomiting Verified 06/24/16 09:19 [From Bactrim] trimethoprim [From Bactrim] Allergy Vomiting Verified 06/24/16 09:19 All Systems PM: A 10-system review of systems was performed and is negative for pertinent findings except as documented above in the HPI. Most of the review of systems was done with discussion with the . - Constitutional Vitals: Temp Pulse Resp BP Pulse Ox 98.7 F 73 16 116/59 96 12/01/17 08:02 12/01/17 09:46 12/01/17 09:46 12/01/17 09:46 12/01/17 09:46 Exam: GENERAL: Somnolent but arousable. EYES: PERRLA, EOMI EARS: External ears normal, canals clear OROPHARYNX: Mucous membranes are dry. NECK: No jugulovenous distention, No carotid bruits, Carotid pulse normal contour, Supple LUNGS: Lungs clear to auscultation, Good diaphragmatic excursion CARDIAC: Normal S1 and S2; no rubs, murmurs, or gallops ABDOMEN: Abdomen soft, mildly distended, mild tender to deep palpation diffusely , no guarding no rigidity EXTREMITIES: Extremities normal, no deformities, edema, clubbing or skin discoloration. Good capillary refill., No ulcers NEURO: Gait not tested. Reflexes normal and symmetric. Sensation grossly intact , Cranial nerves II-XII intact PULSES: 2+ radial, 2+ carotid Rest of the exam is non contributory Internal Med - H&P Results - Labs CBC & Chem 7: 12/01/17 05:00 12/01/17 05:00 - Assessment and plan (1) Enteritis Current Visit: Yes Status: Acute Assessment and plan: Patient has evidence of enteritis on her imaging. She does have a mild white count but does not have elevation of lactic acid at this point. She did come in with fever and tachycardia which has improved significantly since he got an IV fluid bolus. I will continue the IV fluids at least 100 mL an hour for 12 hours and continue to monitor her mental status. In the ER I have seen in order being placed for C. difficile which will be tested. For now I will continue her on Zosyn as well as add Flagyl IV. Await cultures and antibiotic need to be titrated based on that. I am not really convinced that she does have a UTI as well. She did have a dirty specimen and we will repeat a UA. She does not have any history of frequency, dysuria that I am aware of. (2) Metabolic encephalopathy Current Visit: Yes Status: Acute Assessment and plan: Patient had acute mental status changes early this morning where she became lethargic and had a near syncopal event. It is unclear whether she hit her head although I cannot see any bruise samaniego. She did undergo a complete head and neck CT which did not show any evidence of fractures we will place her on telemetry monitoring on the floor. Most likely cause of metabolic encephalopathy at this point believes to be the enteritis with evidence of infection going on Her lactic acid is not elevated so she does not appear to be in significant sepsis at this point. Brain imaging is negative for any acute events (3) DVT prophylaxis Current Visit: Yes Status: Acute Assessment and plan: Subcutaneous tetanus heparin - Time Spent With Patient Total time spent is greater than 50% in coordination of care (as documented) at patient's floor/unit and/or counseling patient: Greater than 35 minutes
[2017-12-01] MEDS ORDERED: Dextrose Gel 15 GM/37.5 ML TUBE PO PRN ×2 (10:25)
[2017-12-01] MEDS ORDERED: D5% in Water 1,000 ML IVC PRN (10:25)
[2017-12-01] MEDS ORDERED: *HR* Dextrose 50 % in Water (Syg) 50 ML SYRINGE IVP PRN (10:25)
[2017-12-01 10:56] LABS: Estimated Average Glucose 128 mg/dl; Hemoglobin A1C 6.1 %
[2017-12-01] MEDS: Insulin LISPRO 300 UNITS/3 ML VIAL SQ SCH ×2 (12:14→17:07)
[2017-12-01] MEDS: MetroNIDAZOLE 500 MG/100 ML 500 MG/100 ML BAG IVPB SCH ×2 (12:14→21:01)
[2017-12-01] MEDS: *HR* Heparin 5,000 UNIT/ML VIAL SQ SCH ×2 (12:14→17:07)
[2017-12-01] MEDS: 0.9 % Sodium Chloride 1,000 ML IVC SCH ×2 (12:14→23:55)
[2017-12-01] MEDS: Piperacillin/Tazobactam 3.375 GM in 0.9 % Sodium Chloride Mini Bag 100 ML IVPB SCH ×2 (14:14→22:55)
--- NOTE | 2017-12-01 20:47 | Event Note ---
Date of Encounter: 12/01/17 Time of Encounter: 20:44 Patient EKG showed QT prolongation. Will monitor medications, avoid zofran, and get serum potassium and magnesium now. Mag was noted to be 1.0 this morning.
[2017-12-01 21:29] LABS: Magnesium 1.3 mg/dL (1.6-2.6); Potassium 3.4 mEq/L (3.5-5.1)
[2017-12-02] MEDS ORDERED: 0.9 % Sodium Chloride 1,000 ML ONE (01:54)
[2017-12-02 02:33] LABS: Basophils % 0.2 %; Eosinophils # 0.2 K/mcL (0.0-0.6); Hematocrit 34.2 % (35.3-44.9); Immature Granulocytes % 0.5 % (0-4); Lymphocytes # 1.8 K/mcL (0.6-4.6); Lymphocytes % 12.5 %; Mean Corpuscular HGB Conc 33.3 g/dL (31.6-35.5); Mean Corpuscular Hemoglobin 27.8 pg (28.0-33.3); Mean Corpuscular Volume 83.4 fL (83.0-100.0); Mean Platelet Volume 10.2 fL (9.4-12.4); Monocytes # 0.9 K/mcL (0.0-1.3); Monocytes % 5.9 %; Neutrophils # 11.7 K/mcL (1.6-8.9); Platelet Count 193 K/mcL (140-400); Red Cell Distribution Width 14.2 % (11.5-14.5); Segmented Neutrophils % 79.9 %
[2017-12-02 02:36] LABS: Hemoglobin 11.4 g/dL (11.5-15.4)
[2017-12-02 02:55] LABS: BUN/Creatinine Ratio 18 (6-26); Blood Urea Nitrogen 18 mg/dL (8-23); Calcium 8.2 mg/dL (8.6-10.3); Carbon Dioxide 23 mEq/L (23-29); Chloride 109 mEq/L (98-107); Glucose 79 mg/dL (70-105); Osmolality,Calculated 293 (280-300); Potassium 3.5 mEq/L (3.5-5.1); Sodium 141 mEq/L (136-145); eGFR For Non-African Americans 55 (> 60)
[2017-12-02] MEDS: MetroNIDAZOLE 500 MG/100 ML 500 MG/100 ML BAG IVPB SCH (04:36)
[2017-12-02] MEDS: Piperacillin/Tazobactam 3.375 GM in 0.9 % Sodium Chloride Mini Bag 100 ML IVPB SCH ×3 (05:40→21:21)
[2017-12-02] MEDS: *HR* Heparin 5,000 UNIT/ML VIAL SQ SCH ×2 (05:41→18:30)
[2017-12-02] MEDS: Insulin LISPRO 300 UNITS/3 ML VIAL SQ SCH ×3 (07:46→16:11)
[2017-12-02 08:20] LABS: Magnesium 1.7 mg/dL (1.6-2.6)
[2017-12-02] MEDS: Cholecalciferol (D-3) 1,000 UNIT TABLET PO SCH (09:27)
[2017-12-02] MEDS: *HR* SitaGLIPtin 25 MG TABLET PO SCH (09:27)
--- NOTE | 2017-12-02 10:44 | Internal Med Progress Note ---
Hospitalist Progress Note - Encounter Date of Encounter: 12/02/17 Time of Encounter: 10:44 - Subjective Interval History: 72 F with PMH of DM placed on obs for enteritis She is not having diarrhea but having some loose stool She is not septic She remains confused and oriented to self only According to the RN at the bedside, her mental status is much more improved compared to 12/01 as she was lethargic on admission She denies new complains Leukocytosis slightly worsened, no C.diff in stool, patient is afebrile EKG from 12/01 reviewed and EKG from today 12/02-NSR normal QTc - Exam Vitals: Temp Pulse Resp BP Pulse Ox 98.2 F 72 18 129/70 96 12/02/17 10:27 12/02/17 10:27 12/02/17 10:27 12/02/17 10:27 12/02/17 10:27 Exam: GENERAL: Alert, awake, able to make conversation EYES: PERRLA, EOMI EARS: External ears normal, canals clear OROPHARYNX: Mucous membranes are dry. NECK: No jugulovenous distention, No carotid bruits, Carotid pulse normal contour, Supple LUNGS: Lungs clear to auscultation, Good diaphragmatic excursion CARDIAC: Normal S1 and S2; no rubs, murmurs, or gallops ABDOMEN: Abdomen soft, mildly distended, mild tender to deep palpation diffusely , no guarding no rigidity EXTREMITIES: Extremities normal, no deformities, edema, clubbing or skin discoloration. Good capillary refill., No ulcers NEURO: AAOX1, Gait not tested. Reflexes normal and symmetric. Sensation grossly intact, Cranial nerves II-XII intact PULSES: 2+ radial, 2+ carotid - Assessment and Plan (1) Enteritis Current Visit: Yes Status: Acute Assessment and Plan: Patient has evidence of enteritis on her imaging. She does have a mild white count but does not have elevation of lactic acid at this point. She did come in with fever , one episode of 103 and tachycardia which has resolved GI panel pending Stool negative for C.diff D/C Flagyl, continue Zosyn follow cultures (2) Metabolic encephalopathy Current Visit: Yes Status: Acute Assessment and Plan: Patient had acute mental status changes on admission, she became lethargic and had a near syncopal event. complete head and neck CT which did not show any evidence of fractures Continue telemetry Encephalopathy is likely due to dehydration and hypomagnessemia and hypokalemia She is alert, awake but oriented to self only Baseline is unknown Contact family to know baseline Continue to monitor (3) DVT prophylaxis Current Visit: Yes Status: Acute Assessment and Plan: Subcutaneous heparin - Time Spent with Patient Total time spent is greater than 50% in coordination of care (as documented) at patient's floor/unit and/or counseling patient: Plan of Care Discussed with: patient Internal Medicine: Result - Labs CBC & Chem 7: 12/02/17 02:06 12/02/17 02:06 Labs: Short CBC 12/02/17 Range/Units 02:06 WBC 14.6 H (4.3-11.1) K/mcL Hgb 11.4 L D (11.5-15.4) g/dL Hct 34.2 L (35.3-44.9) % Plt Count 193 (140-400) K/mcL Neutrophils # 11.7 H (1.6-8.9) K/mcL BMP 12/01/17 12/02/17 20:56 02:06 Sodium 141 Potassium 3.4 L 3.5 Chloride 109 H Carbon Dioxide 23 BUN 18 Creatinine 1.00 Glucose 79 Calcium 8.2 L - ABG Interpretation ABG results: PT/INR, D-dimer PT 12.5 Seconds (9.4-12.1) H 12/01/17 05:00 Consult Discharge Plan - Plan Referrals: Marquis Cook MD [Primary Care Provider] -
[2017-12-02 12:37] LABS: Adenovirus F 40/41 PCR Not detected (Not detect); Astrovirus PCR Not detected (Not detect); C.difficile Toxin A/B by PCR Not detected (Not detect); Campylobacter by PCR Not detected (Not detect); Cryptosporidium by PCR Not detected (Not detect); Cyclospora cayetanensis PCR Not detected (Not detect); E. coli O157 by PCR Not detected (Not detect); Entamoeba histolytica PCR Not detected (Not detect); Enteroaggregative E.coli(EAEC) Not detected (Not detect); Enteropathogenic E.coli(EPEC) Not detected (Not detect); Enterotoxigenic E.coli (ETEC) Not detected (Not detect); Giardia lamblia PCR Not detected (Not detect); Norovirus GI/GII PCR Not detected (Not detect); Plesiomonas shigelloides PCR Not detected (Not detect); Rotavirus A PCR Not detected (Not detect); Salmonella PCR Not detected (Not detect); Sapovirus PCR Not detected (Not detect); Shig/EnteroinvasiveE coli EIEC Not detected (Not detect); Shigalike tox-prod E coli STEC Not detected (Not detect); Vibrio PCR Not detected (Not detect); Vibrio cholerae PCR Not detected (Not detect); Yersinia enterocolitica PCR Not detected (Not detect)
--- NOTE | 2017-12-02 17:50 | Electrocardiograph Report ---
[place] [id number] Test Date: 2017-12-02 Pat Name: Ro Gramajo Department: 115 Room: 3A24 Gender: F [employer]pper: : 1945 Requested By: Niall Denney Order Number: [id number] Reading MD: Diego Randall Measurements Intervals [place] Rate: 73 P: 55 WA: 175 QRS: -1 QRSD: 91 T: 15 QT: 400 QTc: 426 Interpretive Statements SINUS RHYTHM NONSPECIFIC ST-T CHANGES Electronically Signed On 12-02-2017 17:48:39 EDT by Diego Randall
--- NOTE | 2017-12-02 17:56 | Electrocardiograph Report ---
[place] [id number] Test Date: 2017-12-01 Pat Name: Ro Gramajo Department: 115 Room: 3A24 Gender: F [employer]: [id number] : 1945 Requested By: Octavia Manuel Order Number: [id number] Reading MD: Gill Tobin Measurements Intervals [place] Rate: 68 P: 17 GA: 183 QRS: 13 QRSD: 94 T: 38 QT: 426 QTc: 444 Interpretive Statements SINUS RHYTHM Electronically Signed On 12-02-2017 17:54:27 EDT by Gill Tobin
[2017-12-03 03:50] LABS: Basophils % 0.3 %; Eosinophils # 0.1 K/mcL (0.0-0.6); Eosinophils % 0.8 %; Hematocrit 35.5 % (35.3-44.9); Hemoglobin 11.9 g/dL (11.5-15.4); Immature Granulocytes % 0.4 % (0-4); Lymphocytes # 1.5 K/mcL (0.6-4.6); Lymphocytes % 13.5 %; Mean Corpuscular HGB Conc 33.5 g/dL (31.6-35.5); Mean Corpuscular Hemoglobin 27.5 pg (28.0-33.3); Monocytes # 0.7 K/mcL (0.0-1.3); Monocytes % 5.7 %; Platelet Count 183 K/mcL (140-400); Red Blood Count 4.33 M/mcL (3.82-4.97); Segmented Neutrophils % 79.3 %
[2017-12-03 04:10] LABS: BUN/Creatinine Ratio 15 (6-26); Blood Urea Nitrogen 13 mg/dL (8-23); Calcium 8.8 mg/dL (8.6-10.3); Carbon Dioxide 24 mEq/L (23-29); Chloride 106 mEq/L (98-107); Glucose 79 mg/dL (70-105); Magnesium 1.5 mg/dL (1.6-2.6); Osmolality,Calculated 285 (280-300); Potassium 3.2 mEq/L (3.5-5.1); Sodium 138 mEq/L (136-145); eGFR For Non-African Americans > 60 (> 60)
[2017-12-03] MEDS: ALPRAZolam 0.5 MG TABLET PO PRN (05:25)
[2017-12-03] MEDS: *HR* Heparin 5,000 UNIT/ML VIAL SQ SCH ×2 (05:29→16:43)
[2017-12-03] MEDS: Piperacillin/Tazobactam 3.375 GM in 0.9 % Sodium Chloride Mini Bag 100 ML IVPB SCH (05:31)
[2017-12-03] MEDS: Insulin LISPRO 300 UNITS/3 ML VIAL SQ SCH ×3 (09:08→16:55)
[2017-12-03] MEDS: metroNIDAZOLE 500 MG TABLET PO SCH ×3 (09:09→21:42)
[2017-12-03] MEDS: Cholecalciferol (D-3) 1,000 UNIT TABLET PO SCH (09:10)
[2017-12-03] MEDS: *HR* SitaGLIPtin 25 MG TABLET PO SCH (09:10)
[2017-12-03] MEDS: Amoxicillin 500 MG CAPSULE PO SCH ×3 (09:24→21:42)
--- NOTE | 2017-12-03 11:28 | Discharge Summary ---
Date of Encounter: 12/03/17 Time of Encounter: 11:28 - Discharge Diagnosis (1) Enteritis Status: Acute (2) Metabolic encephalopathy Status: Acute (3) DVT prophylaxis Status: Acute Hospital course: Ms. Gramajo is a 72 year old female - Time Spent with Patient Total time spent providing and/or coordinating discharge services: - Discharge Medications Home Medications: ALPRAZolam [Xanax 0.5 MG Tablet] 0.5 mg PO BID PRN 06/24/16 [History] Allopurinol [Zyloprim 100 MG] 100 mg PO DAILY 06/24/16 [History] Atorvastatin [Lipitor] 40 mg PO HS 06/24/16 [History] Cholecalciferol (Vitamin D3) [Vitamin D] 1,000 unit PO DAILY 06/24/16 [History] Clopidogrel [Plavix] 75 mg PO DAILY 06/24/16 [History] DiphenhydraMINE [Benadryl] 25 mg PO Q4HR PRN 06/24/16 [History] Lisinopril [Zestril] 10 mg PO DAILY 06/24/16 [History] Nadolol 60 mg PO DAILY 06/24/16 [History] Oxycodone HCl/Acetaminophen [Percocet 5-325 mg Tablet] 1 each PO TID PRN [History] Sertraline [Zoloft] 100 mg PO DAILY 06/24/16 [History] Lansoprazole [Prevacid] 30 mg PO DAILY 12/01/17 [History] Sitagliptin Phosphate [Januvia] 50 mg PO DAILY 12/01/17 [History] Allergies/Adverse Reactions: 3 Allergy/AdvReac Type Severity Reaction Status Date / Time azithromycin [From Zithromax] Allergy Vomiting Verified 06/24/16 09:19 ciprofloxacin [From Cipro] Allergy Vomiting Verified 06/24/16 09:19 sulfamethoxazole Allergy Vomiting Verified 06/24/16 09:19 [From Bactrim] trimethoprim [From Bactrim] Allergy Vomiting Verified 06/24/16 09:19 Date of admission: 12/01/17 10:04 Primary care physician: Marquis Cook MD Consults: 12/01/17 14:31 Consult to Nutrition [CONS] Routine Comment: Consulting Provider: NUTRITION Reason for Dietary Consult: MST Score - Constitutional Vitals: Temp Pulse Resp BP Pulse Ox 97.9 F 73 18 167/83 94 12/03/17 08:00 12/03/17 08:00 12/03/17 08:00 12/03/17 08:00 12/03/17 08:00 - Patient Status Condition: Fair - Discharge Instructions Follow Up With: Marquis Cook MD [Primary Care Provider] -
--- NOTE | 2017-12-03 11:55 | Internal Med Progress Note ---
Hospitalist Progress Note - Encounter Date of Encounter: 12/03/17 Time of Encounter: 11:55 - Subjective Interval History: 72 F with PMH of DM placed on obs for enteritis She is still having loose stools per chart Overnight events include agitation and restlessness, including patient requested to be discharged home. She remains confused and oriented to self only slight improvement in enteritis as primary diagnosis. Admitted with family at the bedside who stated that patient baseline is conversational and not confused, he also reports she has not been forgetful and oral. Current behavior is new - Exam Vitals: Temp Pulse Resp BP Pulse Ox 97.9 F 73 18 167/83 94 12/03/17 08:00 12/03/17 08:00 12/03/17 08:00 12/03/17 08:00 12/03/17 08:00 Exam: GENERAL: Alert, awake, able to make conversation EYES: PERRLA, EOMI EARS: External ears normal, canals clear OROPHARYNX: Mucous membranes are dry. NECK: No jugulovenous distention, No carotid bruits, Carotid pulse normal contour, Supple LUNGS: Lungs clear to auscultation, Good diaphragmatic excursion CARDIAC: Normal S1 and S2; no rubs, murmurs, or gallops ABDOMEN: Abdomen soft, mildly distended, mild tender to deep palpation diffusely , no guarding no rigidity EXTREMITIES: Extremities normal, no deformities, edema, clubbing or skin discoloration. Good capillary refill., No ulcers NEURO: AAOX1, Gait not tested. Reflexes normal and symmetric. Moves all extremities spontaneously PULSES: 2+ radial, 2+ carotid - Assessment and Plan (1) Encephalopathy Current Visit: Yes Status: Acute Assessment and Plan: Patient had acute mental status changes on admission, she became lethargic and had a near syncopal event. complete head and neck CT which did not show any evidence of fractures Continue telemetry Encephalopathy is likely due to dehydration, multiple electrolyte abnormalities on admission CT on admission was negative Patient's and daughter in law this morning who stated that patient is not at her baseline and that her currently behavior is new Date to state that the patient sleeps during the day and stays awake all night and has been less conversational since a mechanical fall at home 2 months ago I will order Brain MRI, TSH,RPR, r/o secondary causes of dementia Due to presence of sepsis on arrival, consider lumbar puncture, patient has no neurologic deficits at this time Consult neurology for any further recommendations (2) Enteritis Current Visit: Yes Status: Acute Assessment and Plan: Patient had evidence of enteritis on her imaging. She does have a mild white count but does not have elevation of lactic acid at this point. She did come in with fever , one episode of 103 and tachycardia which has resolved GI panel negative. Stool negative for C.diff Change medications to oral Flagyl and ciprofloxacin. Give 1 dose of Imodium 4 tablets, and 2 tabs when necessary diarrhea (3) DVT prophylaxis Current Visit: Yes Status: Acute Assessment and Plan: Subcutaneous heparin (4) Diabetes mellitus Current Visit: Yes Status: Chronic Assessment and Plan: Continue sliding scale insulin and Januvia. (5) Sepsis Current Visit: Yes Status: Acute Assessment and Plan: Patient did not meet sepsis criteria on admission with fever 103, tachycardia, leukocytosis, and likely source being enteritis. Sepsis has resolved Blood Culture preliminary negative Continue current antibiotics - Time Spent with Patient Total time spent is greater than 50% in coordination of care (as documented) at patient's floor/unit and/or counseling patient: Plan of Care Discussed with: family Internal Medicine: Result - Labs CBC & Chem 7: 12/03/17 03:33 12/03/17 03:33 Labs: Short CBC 12/03/17 Range/Units 03:33 WBC 11.4 H (4.3-11.1) K/mcL Hgb 11.9 (11.5-15.4) g/dL Hct 35.5 (35.3-44.9) % Plt Count 183 (140-400) K/mcL Neutrophils # 9.0 H (1.6-8.9) K/mcL BMP 12/03/17 03:33 Sodium 138 Potassium 3.2 L Chloride 106 Carbon Dioxide 24 BUN 13 Creatinine 0.86 Glucose 79 Calcium 8.8 - ABG Interpretation ABG results: PT/INR, D-dimer PT 12.5 Seconds (9.4-12.1) H 12/01/17 05:00 Consult Discharge Plan - Plan Referrals: Marquis Cook MD [Primary Care Provider] - (4) Diabetes mellitus Qualifiers: Diabetes mellitus type: type 2 Diabetes mellitus superintendent container terminal insulin use: without superintendent container terminal use Diabetes mellitus complication status: without complication Qualified Code(s): E11.9 - Type 2 diabetes mellitus without complications (5) Sepsis Qualifiers: Sepsis type: sepsis due to unspecified organism Qualified Code(s): A41.9 - Sepsis, unspecified organism
[2017-12-03 13:16] LABS: Folate 6.3 ng/mL (3.0-16.0)
[2017-12-03] MEDS: *HR* OxyCODONE/APAP 5/325 TABLET PO PRN (21:42)
[2017-12-04] MEDS: *HR* Heparin 5,000 UNIT/ML VIAL SQ SCH ×2 (06:10→18:15)
[2017-12-04 06:16] LABS: BUN/Creatinine Ratio 14 (6-26); Blood Urea Nitrogen 12 mg/dL (8-23); Calcium 8.7 mg/dL (8.6-10.3); Carbon Dioxide 26 mEq/L (23-29); Chloride 106 mEq/L (98-107); Glucose 101 mg/dL (70-105); Magnesium 1.9 mg/dL (1.6-2.6); Osmolality,Calculated 286 (280-300); Potassium 3.9 mEq/L (3.5-5.1); Sodium 138 mEq/L (136-145); eGFR For Non-African Americans > 60 (> 60)
--- NOTE | 2017-12-04 08:10 | Internal Med Progress Note ---
Hospitalist Progress Note - Encounter Date of Encounter: 12/04/17 Time of Encounter: 09:12 - Subjective Interval History: 72 F with PMH of DM , HTN, HLD being managed for encephalopathy, sepsis, enteritis Brain MRi done 12/03 significant for multiple acute infarcts, patient still has no motor or speech neurologic deficits except confusion and memory loss Enteritis has resolved and electrolyte derangements corrected She continues to be oriented to person only but is awake an alert this morning, able to make conversation, no speech deficits, no motor deficits, moves all extremities She doesnt know where she is specifically and does not know the date She is otherwise stable - Exam Vitals: Temp Pulse Resp BP Pulse Ox 98.2 F 73 14 168/76 95 12/04/17 06:24 12/04/17 06:24 12/04/17 06:24 12/04/17 06:24 12/04/17 06:24 Exam: GENERAL: Alert, awake, able to make conversation, sitting up in chair EYES: PERRLA, EOMI EARS: External ears normal, canals clear OROPHARYNX: Mucous membranes are dry. NECK: No jugulovenous distention, No carotid bruits, Carotid pulse normal contour, Supple LUNGS: Lungs clear to auscultation, Good diaphragmatic excursion CARDIAC: Normal S1 and S2; no rubs, murmurs, or gallops ABDOMEN: Abdomen soft, mildly distended, mild tender to deep palpation diffusely , no guarding no rigidity EXTREMITIES: Extremities normal, no deformities, edema, clubbing or skin discoloration. Good capillary refill., No ulcers NEURO: AAOX1, Gait not tested. Reflexes normal and symmetric. Moves all extremities spontaneously PULSES: 2+ radial, 2+ carotid - Assessment and Plan (1) CVA (cerebrovascular accident) Current Visit: Yes Status: Acute Assessment and Plan: Patient admitted with enteritis and encephalopathy, with dehydration and suspected UTI Admitting Head CT was negative However, patient continued to be confused, moves all extremities spontaneously but unable to ambulate Work up sent for secondary causes 12/03 pm-Brain MRI showed multiple acute infarcts in the left occipital, thalamic and left per-ventricular matter, suspect embolic EKG done X 2 in this admission showed NSR, no hx of afib Neuro called and consulted TSh , vit B12 and RPR negative ECHO PTOT eval Continue tele Patient is already on statin, add daily ASA Obtain carotid USS Will Inform family She will likely need placement, SW consulted (2) Encephalopathy Current Visit: Yes Status: Acute Assessment and Plan: Patient had acute mental status changes on admission, she became lethargic and had a near syncopal event. complete head and neck CT which did not show any evidence of fractures Continue telemetry Encephalopathy is likely due to dehydration, multiple electrolyte abnormalities on admission CT on admission was negative On 12/03, Patient's and daughter in law this morning who stated that patient is not at her baseline and that her currently behavior is new Date to state that the patient sleeps during the day and stays awake all night and has been less conversational since a mechanical fall at home 2 months ago Brain MRi showed acute infarcts, see CVA plan for management (3) Enteritis Current Visit: Yes Status: Resolved Assessment and Plan: Resolved Patient had evidence of enteritis on her imaging. She does have a mild white count but does not have elevation of lactic acid at this point. She did come in with fever , one episode of 103 and tachycardia which has resolved GI panel negative. Stool negative for C.diff Continue antibiotics day 4/ (4) DVT prophylaxis Current Visit: Yes Status: Acute Assessment and Plan: Subcutaneous heparin (5) Diabetes mellitus Current Visit: Yes Status: Chronic Assessment and Plan: Continue sliding scale insulin and Januvia. (6) Sepsis Current Visit: Yes Status: Resolved Assessment and Plan: Patient did not meet sepsis criteria on admission with fever 103, tachycardia, leukocytosis, and likely source being enteritis. Sepsis has resolved Blood Culture preliminary negative Continue current antibiotics - Time Spent with Patient Total time spent is greater than 50% in coordination of care (as documented) at patient's floor/unit and/or counseling patient: Plan of Care Discussed with: patient Internal Medicine: Result - Labs CBC & Chem 7: 12/03/17 03:33 12/04/17 05:45 Labs: BMP 12/04/17 05:45 Sodium 138 Potassium 3.9 Chloride 106 Carbon Dioxide 26 BUN 12 Creatinine 0.88 Glucose 101 Calcium 8.7 - ABG Interpretation ABG results: PT/INR, D-dimer PT 12.5 Seconds (9.4-12.1) H 12/01/17 05:00 - Impressions Impressions Brain MRI 12/03/17 11:55 IMPRESSION: 1. Scattered acute infarcts are seen in the left periventricular white matter, left thalamus and left occipital lobe. No mass effect or midline shift. 2. Minimal global parenchymal volume loss with [id number] chronic microvascular ischemic changes. These results were sent to the [facility] on 12/03/2017 at 2:19 pm to be communicated to the referring/covering health care provider/office. D/ / Fabricio Guadalupe MD / Fabricio Guadalupe MD Interpreting Provider: Fabricio Guadalupe MD Consult Discharge Plan - Plan Additional Instructions: Call [facility] [place] when you arrive home to schedule delivery of wheeled walker. The phone number is [phone]. Referrals: Marquis Cook MD [Primary Care Provider] - (1) CVA (cerebrovascular accident) Qualifiers: Precerebral and cerebral artery: posterior cerebral artery Laterality of affected vessel: left Qualified Code(s): I63.532 - Cerebral infarction due to unspecified occlusion or stenosis of left posterior cerebral artery (5) Diabetes mellitus Qualifiers: Diabetes mellitus type: type 2 Diabetes mellitus japanese tutor insulin use: without japanese tutor use Diabetes mellitus complication status: without complication Qualified Code(s): E11.9 - Type 2 diabetes mellitus without complications (6) Sepsis Qualifiers: Sepsis type: sepsis due to unspecified organism Qualified Code(s): A41.9 - Sepsis, unspecified organism
[2017-12-04] MEDS: Insulin LISPRO 300 UNITS/3 ML VIAL SQ SCH ×3 (08:28→17:24)
--- NOTE | 2017-12-04 09:12 | Neurology - Consult Note ---
Date of Encounter: 12/04/17 Time of Encounter: 08:45 Assessment and Plan (1) CVA (cerebrovascular accident) Current Visit: Yes Status: Acute She has multiple risk factors including HTN, DM, and HLD. She had a prior TIA she said "4-5 years ago" that she had dipolpia and blurry vision symptoms. Her exam today did not reveal any focal neurological deficits. She is awake, alert, oriented to person and city but has some difficulty in serial 7's and short term memory on exam. She bounced her L leg during the entire encounter but indicated this is not new for her and has done it for many years. MRI brain showed scattered acute infarcts in L periventricular white matter, L thalamus, and L occipital lobe. The pattern of the infarct is in the [employer] territory but could be an embolic event also. She denied a hx of afib and no episodes have been noted on tele since admission. Her BP became more elevated beginning yesterday morning. Most recently 167/76. In the acute phase of acute infarct antihypertensives can be held for 7-10 days to allow for permissive HTN. She is on home lisinopril, nadolol, plavix, and atorvastatin she said were started after her TIA. 81mg ASA was started today and recommend all these medications be continued at ri. Carotid duplex, ECHO, PT/OT has been ordered. Will order CTA head and neck to assess posterior circulation due to infarct being in [employer] territory. Agree with current management and will reassess after imaging resulted. Qualifiers: Precerebral and cerebral artery: posterior cerebral artery Laterality of affected vessel: left Qualified Code(s): I63.532 - Cerebral infarction due to unspecified occlusion or stenosis of left posterior cerebral artery History of Present Illness Chief complaint: Acute CVA HPI: Ms. Gramajo is a 72 year old female with a pmh significant for HTN, DM, HLD, and prior TIA with visual symptoms, neurology was consulted for acute infarct found on MRI brain. She had few day hx of diarrhea and subjective fever at home before arrival to ED 3 days ago for diarrhea, subjective fever/chills, lethargy , confusion, and near syncopal event. She had a mechanical fall in her garage 2 weeks ago which she says she hit her head. Admission h&p states the family mentioned a fall at home 2 months ago at which time she has been less conversational than her baseline. She says she does think she has been more confused since hitting her head in the fall. She describes periods of bilateral UE and LE weakness that will last a few min and resolves spontaneously. This has been occurring for "years" and happens randomly. She denied any recent diplopia, blurry vision, loss of peripheral vision, dizziness, lightheadedness, hx of afib, chest pain, palpitations, numbness/paresthesias, or additional muscle weakness. Progress notes indicate an improvement in confusion since admission but not to baseline. MRI brain showed scattered acute infarcts in L periventricular white matter, L thalamus, and L occipital lobe. Past Med Surg Social Fam HX - Past Medical History Medical history: DVT, diabetes, fibromyalgia, hypertension, TIA Additional medical history: Hearing Loss. Hemorrhoids. Anemia. Insomnia. Fatigue Psychiatric history: depression - Past Surgical History Surgical History: CORRIE/BSO Additional surgical history: Neck. Back. Bladder. CTR. Breast Biospy. Eye - Social History Smoking Status: Never smoker Smokeless Tobacco Status: No Alcohol use: none Drug use: none - Family History Mother Hx Family Cardiac Disorders: Yes Father Hx Family Cardiac Disorders: Yes Medications and Allergies ALPRAZolam [Xanax 0.5 MG Tablet] 0.5 mg PO BID PRN 06/24/16 [History] Allopurinol [Zyloprim 100 MG] 100 mg PO DAILY 06/24/16 [History] Atorvastatin [Lipitor] 40 mg PO HS 06/24/16 [History] Cholecalciferol (Vitamin D3) [Vitamin D] 1,000 unit PO DAILY 06/24/16 [History] Clopidogrel [Plavix] 75 mg PO DAILY 06/24/16 [History] DiphenhydraMINE [Benadryl] 25 mg PO Q4HR PRN 06/24/16 [History] Lisinopril [Zestril] 10 mg PO DAILY 06/24/16 [History] Nadolol 60 mg PO DAILY 06/24/16 [History] Oxycodone HCl/Acetaminophen [Percocet 5-325 mg Tablet] 1 each PO TID PRN [History] Sertraline [Zoloft] 100 mg PO DAILY 06/24/16 [History] Lansoprazole [Prevacid] 30 mg PO DAILY 12/01/17 [History] Sitagliptin Phosphate [Januvia] 50 mg PO DAILY 12/01/17 [History] 3 Allergy/AdvReac Type Severity Reaction Status Date / Time azithromycin [From Zithromax] Allergy Vomiting Verified 06/24/16 09:19 ciprofloxacin [From Cipro] Allergy Vomiting Verified 06/24/16 09:19 sulfamethoxazole Allergy Vomiting Verified 06/24/16 09:19 [From Bactrim] trimethoprim [From Bactrim] Allergy Vomiting Verified 06/24/16 09:19 All Systems: The remainder of the systems were reviewed and are negative Physical Examination - Vital Signs Vital Signs: Initial Vital Signs Temp Pulse Resp BP Pulse Ox 103.1 F H 127 22 131/88 92 12/01/17 04:41 12/01/17 04:41 12/01/17 04:41 12/01/17 04:41 12/01/17 04:41 - Constitutional General appearance: comfortable - Neurologic Sensorimotor examination: intact, other (bounces L leg during whole encounter ) Detailed motor examination: full strength in all major muscle groups Motor examination - right side: 5/5: deltoids, biceps, triceps, wrist flexion, wrist extension, can bander operator, hip flexors, tibialis Anterior, quadriceps, toe extension (EHL), plantarflexion Motor examination - left side: 5/5: deltoids, biceps, triceps, wrist flexion, wrist extension, hip flexors, can bander operator, quadriceps, tibialis Anterior, toe extension (EHL), plantarflexion Detailed sensory examination: light touch (intact), temperature (intact), vibration (intact) Reflexes: Biceps: 2+, Triceps: 2+, Brachioradialis: 2+, Patella: 2+, Achilles: 2 + Mental Status Examination: awake, alert, oriented to person, oriented to place, follows commands appropriately, answers questions appropriately, no aphasia Cranial nerve examination: PERRL, EOMI, visual osuna intact, sensory to face intact, no facial asymmetry is present, no dysarthria, hearing is intact symmetrically, soft palate elevates bilaterally upon phonation, flexes SCM and trapezius muscles symmetrically with full power, tongue protrudes midline, no atrophy or facial fasiculations present Cerebellar examination: no dysmetria, performs finger to nose and heel to damon symmetrically without ataxia Ataxia: left upper extremity (minimal at near full extension) Results - Laboratory Findings CBC and BMP: 12/03/17 03:33 12/04/17 05:45 Abnormal lab findings: Abnormal lab results WBC 11.4 K/mcL (4.3-11.1) H 12/03/17 03:33 MCV 82.0 fL (83.0-100.0) L 12/03/17 03:33 MCH 27.5 pg (28.0-33.3) L 12/03/17 03:33 Neutrophils # 9.0 K/mcL (1.6-8.9) H 12/03/17 03:33 PT 12.5 Seconds (9.4-12.1) H 12/01/17 05:00 VBG pCO2 36 mmHg (41-51) L 12/01/17 07:09 VBG pO2 109 mmHg (25-50) H 12/01/17 07:09 POC Glucose 182 mg/dL (70-99) H 12/03/17 20:29 Hemoglobin A1c 6.1 % (-5.6) H 12/01/17 10:25 Alkaline Phosphatase 139 Units/L (34-104) H 12/01/17 05:00 Beta-Hydroxybutyric Acd 0.66 mmol/L (0.02-0.27) H 12/01/17 06:57 Urine Clarity Cloudy (Clear) A 12/01/17 06:10 Urine Protein 100 mg/dL (Neg-Trace) H 12/01/17 06:10 Urine Blood Moderate (Negative) H 12/01/17 06:10 Urine Nitrite Positive (Negative) A 12/01/17 06:10 Ur Leukocyte Esterase Large (Negative) H 12/01/17 06:10 Urine Microscopic RBC 5-15 per hpf (0-3) H 12/01/17 06:10 Urine Microscopic WBC TNTC per hpf (0-3) H 12/01/17 06:10 Ur Squamous Epith Cells Many per lpf (None-Few) H 12/01/17 06:10 Urine Bacteria Many per hpf (None-Few) H 12/01/17 06:10 Ur Culture Indicated? NO. (NO) A 12/01/17 06:10 Consult Discharge Plan - Plan Additional Instructions: Call [facility] when you arrive home to schedule delivery of wheeled walker. The phone number is [phone]. Referrals: Marquis Cook MD [Primary Care Provider] -
[2017-12-04] MEDS ORDERED: Isovue-370 500 ML INFUS..BTL IV ONE (10:06)
[2017-12-04] MEDS: metroNIDAZOLE 500 MG TABLET PO SCH ×3 (10:47→20:05)
[2017-12-04] MEDS: Aspirin Enteric Coated 81 MG Tablet PO SCH (10:48)
[2017-12-04] MEDS: Amoxicillin 500 MG CAPSULE PO SCH ×3 (10:48→20:06)
[2017-12-04] MEDS: *HR* SitaGLIPtin 25 MG TABLET PO SCH (10:48)
[2017-12-04] MEDS: Cholecalciferol (D-3) 1,000 UNIT TABLET PO SCH (10:49)
[2017-12-04] MEDS: ALPRAZolam 0.5 MG TABLET PO PRN (19:37)
[2017-12-04] MEDS: *HR* OxyCODONE/APAP 5/325 TABLET PO PRN (20:05)
[2017-12-05 04:07] LABS: Chol/HDL Ratio 3.2 (0-4.9)
[2017-12-05] MEDS: *HR* Heparin 5,000 UNIT/ML VIAL SQ SCH ×2 (05:42→16:21)
--- NOTE | 2017-12-05 09:31 | Discharge Summary ---
- NOTES TO OUTPATIENT PROVIDER Notes to Outpatient Provider: 72 F with multiple medical co-morbidities who was admitted and managed for encephalopathy, sepsis secondary to enteritis. Incidental finding of left posterior cerebral and right vertebral artery occlusion and acute ischemic CVA. Patient has no neurologic deficits. She is discharged to swing bed for physical and occupational therapy. Follow-up with primary care physician. Date of Encounter: 12/05/17 Time of Encounter: 09:31 - Discharge Diagnosis (1) CVA (cerebrovascular accident) Priority: Primary Status: Acute Qualifiers: CVA mechanism: occlusion Precerebral and cerebral artery: vertebral artery Laterality of affected vessel: right Qualified Code(s): I63.211 - Cerebral infarction due to unspecified occlusion or stenosis of right vertebral artery (2) Encephalopathy Priority: Primary Status: Acute (3) Enteritis Priority: Primary Status: Resolved (4) DVT prophylaxis Priority: Primary Status: Acute (5) Diabetes mellitus Priority: Secondary Status: Chronic Qualifiers: Diabetes mellitus type: type 2 Diabetes mellitus assisted insulin use: without assisted use Diabetes mellitus complication status: without complication Qualified Code(s): E11.9 - Type 2 diabetes mellitus without complications (6) Sepsis Priority: Primary Status: Resolved Qualifiers: Sepsis type: sepsis due to unspecified organism Qualified Code(s): A41.9 - Sepsis, unspecified organism Hospital course: Ms. Gramajo is a 72 year old female Patient had acute mental status changes on admission, she became lethargic and had a near syncopal event. Patient admitted with enteritis and encephalopathy, with dehydration and suspected UTI . According to and EMR, patient acute mental status changes and diarrhea she became lethargic and had a near syncopal event and was unable to walk prior to their presentation to the ER. At time of admission, she was found to be dehydrated with suspected UTI, encephalopthy, hypomagnesssemia and hypokalemia Admitting Head CT was negative However, patient continued to be confused, moves all extremities spontaneously but unable to ambulate, despite resolution of her admitting problems, she was frequently agitated , more towards evening, and she remained oriented to person only Work up sent for secondary causes 8/15 pm-Brain MRI showed multiple acute infarcts in the left occipital, thalamic and left per-ventricular matter, suspect embolic EKG done X 2 in this admission showed NSR, no hx of afib,TSH , vit B12 and RPR negative Neuro called and consulted, recommended CTA of head and neck which showed R vertebral and L post cerebral occulsion ECHO was unremarkable with normal EF PTOT was consulted and recommended swing bed for rehab Patient was already on a statin, and ASA was added to her home regimen She is seen and examined at bedside this a.m, clinically stable and with no new complains, she remains alert and oriented to self only, she knows she's in a hospital but does not know its [place] She has completed her antibiotic regimen in-patient She is transferred to SNF in clinically stable condition Discharge discussed with: patient, family, nurse, social work - Time Spent with Patient Total time spent providing and/or coordinating discharge services: Greater than 30 minutes (45 mins) - Discharge Medications Prescriptions: ALPRAZolam [Xanax 0.5 MG Tablet] 0.5 mg PO BID PRN 5 Days #10 tablet PRN Reason: Anxiety Oxycodone HCl/Acetaminophen [Percocet 5-325 mg Tablet] 1 each PO TID PRN 5 Days #15 tablet PRN Reason: Pain Home Medications: Allopurinol [Zyloprim 100 MG] 100 mg PO DAILY 06/24/16 [History] Atorvastatin [Lipitor] 40 mg PO HS 06/24/16 [History] Cholecalciferol (Vitamin D3) [Vitamin D3] 1,000 unit PO DAILY 06/24/16 [History] Clopidogrel [Plavix] 75 mg PO DAILY 06/24/16 [History] DiphenhydraMINE [Benadryl] 25 mg PO Q4HR PRN 06/24/16 [History] Lisinopril [Zestril] 10 mg PO DAILY 06/24/16 [History] Nadolol 60 mg PO DAILY 06/24/16 [History] Sertraline [Zoloft] 100 mg PO DAILY 06/24/16 [History] Lansoprazole [Prevacid] 30 mg PO DAILY 12/01/17 [History] Sitagliptin Phosphate [Januvia] 50 mg PO DAILY 12/01/17 [History] ALPRAZolam [Xanax 0.5 MG Tablet] 0.5 mg PO BID PRN 5 Days #10 tablet 12/05/17 [ Rx] Aspirin Enteric Coated [Aspirin EC] 81 mg PO DAILY tablet. 12/05/17 [Rx] Oxycodone HCl/Acetaminophen [Percocet 5-325 mg Tablet] 1 each PO TID PRN 5 Days #15 tablet 12/05/17 [Rx] Allergies/Adverse Reactions: 3 Allergy/AdvReac Type Severity Reaction Status Date / Time azithromycin [From Zithromax] Allergy Vomiting Verified 06/24/16 09:19 ciprofloxacin [From Cipro] Allergy Vomiting Verified 06/24/16 09:19 sulfamethoxazole Allergy Vomiting Verified 06/24/16 09:19 [From Bactrim] trimethoprim [From Bactrim] Allergy Vomiting Verified 06/24/16 09:19 Date of admission: 12/04/17 10:46 Primary care physician: Marquis Cook MD Discharging clinician: Niall Denney Anticipated date of discharge: 12/05/17 - Constitutional Vitals: Temp Pulse Resp BP Pulse Ox 98.6 F 72 16 156/78 95 12/05/17 07:25 12/05/17 07:25 12/05/17 07:25 12/05/17 07:25 12/05/17 07:25 GENERAL: Alert, awake, able to make conversation, sitting up in chair EYES: PERRLA, EOMI EARS: External ears normal, canals clear OROPHARYNX: Mucous membranes are moist NECK: No jugulovenous distention, No carotid bruits, Carotid pulse normal contour, Supple LUNGS: Lungs clear to auscultation, Good diaphragmatic excursion CARDIAC: Normal S1 and S2; no rubs, murmurs, or gallops ABDOMEN: Abdomen soft, mildly distended, mild tender to deep palpation diffusely , no guarding no rigidity EXTREMITIES: Extremities normal, no deformities, edema, clubbing or skin discoloration. Good capillary refill., No ulcers NEURO: AAOX1, Gait not tested. Reflexes normal and symmetric. Moves all extremities spontaneously PULSES: 2+ radial, 2+ carotid - Patient Status Disposition: Transfer SNF Condition: Good Functional capacity at discharge: independent ambulation Overall status at discharge: patient is progressing back to baseline - Discharge Instructions Follow Up With: Marquis Cook MD [Primary Care Provider] - Additional Instructions: Call [facility] when you arrive home to schedule delivery of wheeled walker. The phone number is [phone]. - Diet and Activity Activity: as per physical therapy Diet: diabetic diet, low fat, low cholesterol, low salt diet
--- NOTE | 2017-12-05 09:32 | Physician Discharge Referral ---
ExtendedCare Referral Info Transfer To: [facility] Provider in Charge: Fernando Denney Provider in Charge after Transfer: PCP Institutional Level of Care: Skilled - Diagnosis (1) CVA (cerebrovascular accident) Priority: Primary Status: Acute (2) Encephalopathy Priority: Primary Status: Acute (3) Enteritis Priority: Primary Status: Resolved (4) DVT prophylaxis Priority: Primary Status: Resolved (5) Diabetes mellitus Priority: Secondary Status: Chronic (6) Sepsis Priority: Primary Status: Resolved Prognosis: Good Aware of Diagnosis: Patient Aware of Prognosis: Patient - Transfer Medications Prescriptions: ALPRAZolam [Xanax 0.5 MG Tablet] 0.5 mg PO BID PRN 5 Days #10 tablet PRN Reason: Anxiety Oxycodone HCl/Acetaminophen [Percocet 5-325 mg Tablet] 1 each PO TID PRN 5 Days #15 tablet PRN Reason: Pain Home Medications: Allopurinol [Zyloprim 100 MG] 100 mg PO DAILY 06/24/16 [History] Atorvastatin [Lipitor] 40 mg PO HS 06/24/16 [History] Cholecalciferol (Vitamin D3) [Vitamin D3] 1,000 unit PO DAILY 06/24/16 [History] Clopidogrel [Plavix] 75 mg PO DAILY 06/24/16 [History] DiphenhydraMINE [Benadryl] 25 mg PO Q4HR PRN 06/24/16 [History] Lisinopril [Zestril] 10 mg PO DAILY 06/24/16 [History] Nadolol 60 mg PO DAILY 06/24/16 [History] Sertraline [Zoloft] 100 mg PO DAILY 06/24/16 [History] Lansoprazole [Prevacid] 30 mg PO DAILY 12/01/17 [History] Sitagliptin Phosphate [Januvia] 50 mg PO DAILY 12/01/17 [History] ALPRAZolam [Xanax 0.5 MG Tablet] 0.5 mg PO BID PRN 5 Days #10 tablet 12/05/17 [ Rx] Aspirin Enteric Coated [Aspirin EC] 81 mg PO DAILY tablet. 12/05/17 [Rx] Oxycodone HCl/Acetaminophen [Percocet 5-325 mg Tablet] 1 each PO TID PRN 5 Days #15 tablet 12/05/17 [Rx] Allergies/Adverse Reactions: 3 Allergy/AdvReac Type Severity Reaction Status Date / Time azithromycin [From Zithromax] Allergy Vomiting Verified 06/24/16 09:19 ciprofloxacin [From Cipro] Allergy Vomiting Verified 06/24/16 09:19 sulfamethoxazole Allergy Vomiting Verified 06/24/16 09:19 [From Bactrim] trimethoprim [From Bactrim] Allergy Vomiting Verified 06/24/16 09:19 - Respiratory Orders Smoking Cessation: Smoking cessation has been advised. For more information, call the [place] Tobacco Quit Line at 3-997-LZUU-NOW. - Advance Directives Code Status: Full Code - Diet Orders No Concentrated Sweets, Cardiac CERTIFICATION: I certify that the transfer of the above named patient to an Extended Care Facility is necessary for the continuing treatment of the diagnosis listed. The above information is true and accurate reflection of patient's current condition. Confidential - Redisclosure prohibited without a patient's written consent.
[2017-12-05] MEDS: Cholecalciferol (D-3) 1,000 UNIT TABLET PO SCH (09:44)
[2017-12-05] MEDS: metroNIDAZOLE 500 MG TABLET PO SCH ×2 (09:45→15:54)
[2017-12-05] MEDS: *HR* SitaGLIPtin 25 MG TABLET PO SCH (09:45)
[2017-12-05] MEDS: Aspirin Enteric Coated 81 MG Tablet PO SCH (09:45)
[2017-12-05] MEDS: Insulin LISPRO 300 UNITS/3 ML VIAL SQ SCH ×3 (09:46→16:20)
[2017-12-05] MEDS: Amoxicillin 500 MG CAPSULE PO SCH ×2 (09:48→15:55)
[2017-12-05 12:44] VITALS: BP 151/77
[2017-12-05] MEDS: *HR* OxyCODONE/APAP 5/325 TABLET PO PRN (13:04)
== END 2017-12-05 16:26 | disposition other institution (70) | DRG 871 ==
LOC: EMEROOARM 04:32 → 3ANU 04:32 → SUATTDRO 10:04 → 3ANU 10:49
PROVIDERS: ADMIT Internal Medicine; ATTEND Internal Medicine

== ENCOUNTER 2017-12-09 15:08 | Inpatient (IN) ==
[2017-12-09] MEDS ORDERED: Naloxone 0.4 MG/ML INJ IVP PRN (19:35)
[2017-12-09] MEDS ORDERED: 0.9 % Sodium Chloride 1,000 ML IVC SCH (19:45)
--- NOTE | 2017-12-09 20:05 | Internal Med History&Physical ---
Date of Encounter: 12/10/17 Time of Encounter: 20:02 Internal Medicine - H&P: HPI Chief complaint: AMS History of present illness: Ms. Gramajo is a 72 year old female with past medical history of hypertension, diabetes, hyperlipidemia and TIA who was recently hospitalized at [facility] on December 01 for possible acute gastroenteritis. During that hospitalization workup with MRI discovered evidence of recent CVA and was evaluated by neurology , subsequent restarted on aspirin and Plavix and discharged to rehabilitation in [place]. Per medical records earlier this afternoon patient had gradual decline in her mental status with decreased responsiveness in the absence of any acute neurologic deficits. Per nursing documentation patient is alert oriented 3 at baseline however this has not been confirmed as no family members were at present at the time of the assessment. She was unable to participate with therapy and has been transferred to us for further evaluation. CT scan of the head on December 08 showed no acute intra-cranial abnormality with mild microvascular ischemic disease. Patient is otherwise been afebrile with no significant white count, 10.6 the last being, and mild hypokalemia of 3.3. Patient had also fallen while at rehabilitation yesterday and reported left wrist pain. An x-ray was performed which was negative for fracture. Patient has a history of gout. Past Med Surg Social Fam HX - Past Medical History Medical history: CVA, DVT, diabetes, fibromyalgia, hypertension, TIA Additional medical history: Hemorrhoids. Anemia. Insomnia. Fatigue Psychiatric history: depression - Past Surgical History Surgical History: appendectomy, cholecystectomy, CORRIE/BSO Additional surgical history: Neck. Back. Bladder. CTR. Breast Biospy. Eye - Social History Smoking Status: Never smoker Smokeless Tobacco Status: No Alcohol use: none Drug use: none - Family History Mother Hx Family Cardiac Disorders: Yes Father Hx Family Cardiac Disorders: Yes Brother Family Member Ethnicity: Non- Living Status: Still Living Hx Family Cancer: Yes (esophagus) Internal Medicine - H&P: Meds Allopurinol [Zyloprim 100 MG] 100 mg PO DAILY 06/24/16 [History] Atorvastatin [Lipitor] 40 mg PO HS 06/24/16 [History] Cholecalciferol (Vitamin D3) [Vitamin D3] 1,000 unit PO DAILY 06/24/16 [History] Clopidogrel [Plavix] 75 mg PO DAILY 06/24/16 [History] DiphenhydraMINE [Benadryl] 25 mg PO Q4HR PRN 06/24/16 [History] Lisinopril [Zestril] 10 mg PO DAILY 06/24/16 [History] Nadolol 60 mg PO DAILY 06/24/16 [History] Sertraline [Zoloft] 100 mg PO DAILY 06/24/16 [History] Lansoprazole [Prevacid] 30 mg PO DAILY 12/01/17 [History] Sitagliptin Phosphate [Januvia] 50 mg PO DAILY 12/01/17 [History] ALPRAZolam [Xanax 0.5 MG Tablet] 0.5 mg PO BID PRN 5 Days #10 tablet 12/05/17 [ Rx] Aspirin Enteric Coated [Aspirin EC] 81 mg PO DAILY tablet. 12/05/17 [Rx] Oxycodone HCl/Acetaminophen [Percocet 5-325 mg Tablet] 1 each PO TID PRN 5 Days #15 tablet 12/05/17 [Rx] 3 Allergy/AdvReac Type Severity Reaction Status Date / Time azithromycin [From Zithromax] Allergy Vomiting Verified 06/24/16 09:19 ciprofloxacin [From Cipro] Allergy Vomiting Verified 06/24/16 09:19 sulfamethoxazole Allergy Vomiting Verified 06/24/16 09:19 [From Bactrim] trimethoprim [From Bactrim] Allergy Vomiting Verified 06/24/16 09:19 All Systems PM: A 10-system review of systems was performed and is negative for pertinent findings except as documented above in the HPI. - Constitutional Constitutional: no chills, no fever(s), no night sweats - EENT Eyes: no change in vision, no discharge, no pain, no photophobia Ears: no ear discharge, no ear pain, no tinnitus Nose, mouth and throat: no dysphagia, no nasal discharge, no neck pain, no sore throat - Cardiovascular Cardiovascular ROS IM: no chest pain, no diaphoresis, no dyspnea, no lightheadedness, no palpitations, no syncope - Respiratory Respiratory: no cough, no dyspnea, no wheezing, no excessive phlegm production - Gastrointestinal Gastrointestinal: no abdominal pain, no diarrhea, no hematemesis, no hematochezia, no melena, no nausea, no vomiting - Genitourinary Genitourinary: no change in urinary stream, no dysuria, no flank pain, no hematuria - Musculoskeletal Musculoskeletal ROS IM: no numbness, no tingling - Integumentary Integumentary IM: no rash, no unusual bruising - Neurological Neurological ROS: no confusion, no convulsions, no focal weakness, no numbness, no tingling, no tremor(s) - Hematologic/Lymphatic Hematologic/Lymphatic: no easy bruising - Constitutional Vitals: Temp Pulse Resp BP Pulse Ox 99.5 F 78 16 135/85 97 12/09/17 18:43 12/09/17 18:43 12/09/17 18:43 12/09/17 18:43 12/09/17 18:43 Exam: General: Alert and oriented x 1; patient lying in bed. Lethargic. Skin:Normal color, no rash, no lesions. HEENT:EOM, pupils equal, round and reactive. Dry mucous membranes Cardiovascular:Normal S1 & S2, no rubs, murmurs or gallops. No JVD. Pulse regular. Lungs:Normal breath sounds, no wheezes or crackles. Abdomen:Soft, non-tender, no rigidity. Extremities:No deformity, mild edema of the left hand with tenderness to the wrist upon palpation. no edema or tenderness of the lower extremities. Neurological: During physical examination patient lethargic. Alert oriented 1 ; Opening eyes to verbal commands however was unable to follow commands which hindered assessment of her neurologic status. Pulses:Carotid and radial pulses normal +2. Rest of the physical exam is non contributory Internal Med - H&P Results - Labs CBC & Chem 7: 12/10/17 05:02 12/10/17 05:02 - Assessment and plan (1) Encephalopathy Current Visit: No Status: Acute Assessment and plan: Toxic versus metabolic versus recurrent CVA. Panculture. Repeat MRI. Chest x- ray. Repeat CBC and chemistry. IV fluids. We will keep patient nothing by mouth for now. Follow-up labs (2) CVA (cerebrovascular accident) Current Visit: No Status: Acute Assessment and plan: Recent history of CVA confirmed on MRI during last admission. Most recent CT scan on the was negative for any acute changes. Patient currently nothing by mouth. We will repeat MRI of the brain. Will give aspirin rectally. Holding clopidogrel. Consider neurology consult based on MRI findings and further workup for her encephalopathy And speech and swallow consultation. Qualifiers: CVA mechanism: unspecified Qualified Code(s): I63.9 - Cerebral infarction, unspecified (3) HTN (hypertension) Current Visit: No Status: Acute Assessment and plan: Blood pressure currently stable. We will monitor. Treat as needed. Qualifiers: Qualified Code(s): I10 - Essential (primary) hypertension (4) Diabetes mellitus Current Visit: No Status: Chronic Assessment and plan: Blood glucose checks. Insulin sliding scale. Qualifiers: Qualified Code(s): E11.9 - Type 2 diabetes mellitus without complications (5) Hypokalemia Current Visit: No Status: Acute Assessment and plan: Most recent potassium level of 3.2 at [place]. We will repeat potassium and as needed. Replete potassium and check an a.m. - Time Spent With Patient Total time spent is greater than 50% in coordination of care (as documented) at patient's floor/unit and/or counseling patient:
[2017-12-09 21:30] LABS: Hematocrit 40.7 % (35.3-44.9); Mean Corpuscular HGB Conc 33.9 g/dL (31.6-35.5); Mean Corpuscular Hemoglobin 27.6 pg (28.0-33.3); Mean Corpuscular Volume 81.4 fL (83.0-100.0); Mean Platelet Volume 10.4 fL (9.4-12.4); Platelet Count 243 K/mcL (140-400); Red Cell Distribution Width 14.5 % (11.5-14.5)
[2017-12-09 21:31] LABS: Hemoglobin 13.8 g/dL (11.5-15.4)
[2017-12-09 21:48] LABS: Alanine Aminotransferase 21 Units/L (7-52); Albumin 3.9 g/dL (3.5-5.7); Albumin/Globulin Ratio 1.6 (1.1-2.2); Alkaline Phosphatase 87 Units/L (34-104); Aspartate Amino Transferase 15 Units/L (13-39); BUN/Creatinine Ratio 18 (6-26); Bilirubin,Total 0.8 mg/dL (0.3-1.0); Blood Urea Nitrogen 15 mg/dL (8-23); Calcium 9.6 mg/dL (8.6-10.3); Carbon Dioxide 29 mEq/L (23-29); Chloride 96 mEq/L (98-107); Globulin 2.5 g/dL (2.4-3.5); Glucose 117 mg/dL (70-105); Osmolality,Calculated 282 (280-300); Potassium 3.5 mEq/L (3.5-5.1); Sodium 135 mEq/L (136-145); Total Protein 6.4 g/dL (6.4-8.9); eGFR For Non-African Americans > 60 (> 60)
[2017-12-09] MEDS: 0.9 % Sodium Chloride w KCl 20 MEQ/1,000 ML MLS IVC SCH (23:44)
[2017-12-10] MEDS: Piperacillin/Tazobactam 3.375 GM in 0.9 % Sodium Chloride Mini Bag 100 ML IVPB SCH (01:45)
[2017-12-10 05:47] LABS: Hematocrit 39.2 % (35.3-44.9); Mean Corpuscular HGB Conc 33.2 g/dL (31.6-35.5); Mean Corpuscular Volume 81.5 fL (83.0-100.0); Mean Platelet Volume 10.2 fL (9.4-12.4); Platelet Count 225 K/mcL (140-400); Red Blood Count 4.81 M/mcL (3.82-4.97); Red Cell Distribution Width 14.5 % (11.5-14.5)
[2017-12-10 06:08] LABS: Alanine Aminotransferase 17 Units/L (7-52); Albumin 3.8 g/dL (3.5-5.7); Albumin/Globulin Ratio 1.4 (1.1-2.2); Alkaline Phosphatase 83 Units/L (34-104); Aspartate Amino Transferase 15 Units/L (13-39); BUN/Creatinine Ratio 20 (6-26); Bilirubin,Total 0.9 mg/dL (0.3-1.0); Blood Urea Nitrogen 15 mg/dL (8-23); Calcium 9.1 mg/dL (8.6-10.3); Carbon Dioxide 25 mEq/L (23-29); Chloride 100 mEq/L (98-107); Globulin 2.8 g/dL (2.4-3.5); Glucose 120 mg/dL (70-105); Osmolality,Calculated 284 (280-300); Potassium 3.6 mEq/L (3.5-5.1); Sodium 136 mEq/L (136-145); Total Protein 6.6 g/dL (6.4-8.9); eGFR For Non-African Americans > 60 (> 60)
[2017-12-10] MEDS: *HR* Heparin 5,000 UNIT/ML VIAL SQ SCH ×4 (06:16→22:57)
[2017-12-10 06:47] LABS: Bilirubin,Urine Negative (Negative); Blood,Urine Large (Negative); Clarity,Urine Clear (Clear); Color,Urine Yellow (Yellow); Glucose,Urine (UA) Normal (Normal); Ketones,Urine Negative (Negative); Leukocyte Esterase,Urine Negative (Negative); Nitrite,Urine Positive (Negative); Protein,Urine 100 mg/dL (Neg-Trace); Specific Gravity,Urine 1.026 (1.010-1.025); Urobilinogen,Urine Normal (Normal)
[2017-12-10 06:50] LABS: Bacteria,Urine None Seen per hpf (None-Few); Hyaline Casts,Urine None Seen per lpf (None-Few); RBC,Urine 30-50 per hpf (0-3); Squamous Epithelial Cell,Urine Many per lpf (None-Few)
[2017-12-10] MEDS ORDERED: Aminoglycoside Consult 1 EACH MC ONE (08:24)
--- NOTE | 2017-12-10 08:34 | Neurology - Consult Note ---
<Sadiq Romero - Last Filed: 12/10/17 08:26> Date of Encounter: 12/10/17 Time of Encounter: 08:15 Assessment and Plan (1) CVA (cerebrovascular accident) Current Visit: No Status: Acute MRI brain showed acute to subacute infarcts of L thalamus, L hippocampal tail, and deep frontal white matter. These are new from previous MRI from last admission. The new infarcts did occur on duel antiplatelet therapy. CTA previous admission did not show any significant stenosis of carotids but did show the occlusion of L HRIS SPECIALIST that accounts for her previous infarct. She is alert and oriented to person but not place or time. Her new infarcts in the L thalamus, hippocampus, and frontal lobe could attribute to her memory and mental status changes. Possibly her home percocet or xanax could be attributing to her mental status. She does have leukocytosis and abnormal UA with start of abx since arrival which could be another possibility of her mental status changes due to infection. She has 4/5 weakness of R UE/LE along with L LE. L UE could not be assessed due to unwillingness to move her L arm due to pain from self reported fall last night that she did not tell staff about. Her BP has been highest most recent at 176/91 and I recommend holding antihypertensives to allow for permissive HTN in the acute phase for the next day or so. Also recommend continuation of her asa/plavix. I do not think repeat arterial imaging would be of benefit at this point as they were just performed last week. She is already on a statin and oral hyperglycemics along with her home antihypertensives for her stroke risk factors of HTN, DM, and HLD. I recommend continuation of these at [facility]. Will follow. Qualifiers: CVA mechanism: unspecified Qualified Code(s): I63.9 - Cerebral infarction, unspecified History of Present Illness Chief complaint: Acute mental status change HPI: Ms. Gramajo is a 72 year old female with pmh significant for HTN, DM, HLD, multiple old and recent CVA as recent as last week and neurology was consulted for mental status changes and possible recurrent stroke. She was here last week for an acute HRIS SPECIALIST infarct with occlusion of P4 segment L HRIS SPECIALIST on CTA and discharged to rehab. Most of additional hx comes from medical record. [facility] she hit her head 2 days ago without acute finding on CT head. Yesterday afternoon rehab staff noticed a gradual decline in mental status and responsiveness but without any neuro deficits. She was transferred here and a MRI brain was performed and showed acute to subacute infarcts L thalamus, L hippocampal tail, and deep frontal white matter. She said last night when attempting to walk to the restroom she fell again and has pain in her L arm and L hip. She denied hitting her head, loc, presyncopal or syncopal symptoms. She said she did not tell staff here about the fall or pain. She has denied any diplopia, blurry vision, CARMICHAEL, numbness/paresthesias, N/V or feelings of off balanceness. She did complain of chest pain of 1 week duration. Past Med Surg Social Fam HX - Past Medical History Medical history: CVA, DVT, diabetes, fibromyalgia, hypertension, TIA Additional medical history: Hemorrhoids. Anemia. Insomnia. Fatigue Psychiatric history: depression - Past Surgical History Surgical History: appendectomy, cholecystectomy, CORRIE/BSO Additional surgical history: Neck. Back. Bladder. CTR. Breast Biospy. Eye - Social History Smoking Status: Never smoker Smokeless Tobacco Status: No Alcohol use: none Drug use: none - Family History Mother Hx Family Cardiac Disorders: Yes Father Hx Family Cardiac Disorders: Yes Brother Family Member Ethnicity: Non- Living Status: Still Living Hx Family Cancer: Yes (esophagus) Medications and Allergies Allopurinol [Zyloprim 100 MG] 100 mg PO DAILY 06/24/16 [History] Atorvastatin [Lipitor] 40 mg PO HS 06/24/16 [History] Cholecalciferol (Vitamin D3) [Vitamin D3] 1,000 unit PO DAILY 06/24/16 [History] Clopidogrel [Plavix] 75 mg PO DAILY 06/24/16 [History] DiphenhydraMINE [Benadryl] 25 mg PO Q4HR PRN 06/24/16 [History] Lisinopril [Zestril] 10 mg PO DAILY 06/24/16 [History] Sertraline [Zoloft] 100 mg PO DAILY 06/24/16 [History] Lansoprazole [Prevacid] 30 mg PO DAILY 12/01/17 [History] Sitagliptin Phosphate [Januvia] 50 mg PO DAILY 12/01/17 [History] Aspirin Enteric Coated [Aspirin EC] 81 mg PO DAILY tablet.dr 12/05/17 [Rx] Oxycodone HCl/Acetaminophen [Percocet 5-325 mg Tablet] 1 each PO TID PRN 5 Days #15 tablet 12/05/17 [Rx] Furosemide [Lasix] 10 mg PO DAILY 12/10/17 [History] Nadolol [Nadolol] 20 mg PO TID 12/10/17 [History] 3 Allergy/AdvReac Type Severity Reaction Status Date / Time azithromycin [From Zithromax] AdvReac Vomiting Verified 12/10/17 09:42 ciprofloxacin [From Cipro] AdvReac Vomiting Verified 12/10/17 09:42 sulfamethoxazole AdvReac Vomiting Verified 12/10/17 09:42 [From Bactrim] trimethoprim [From Bactrim] AdvReac Vomiting Verified 12/10/17 09:42 All Systems: The remainder of the systems were reviewed and are negative Physical Examination - Vital Signs Vital Signs: Initial Vital Signs Temp Pulse Resp BP Pulse Ox 99.5 F 78 16 135/85 97 12/09/17 18:43 12/09/17 18:43 12/09/17 18:43 12/09/17 18:43 12/09/17 18:43 - Exam Exam: Full neuro exam was not able to be performed due to her L arm pain and refusal to move her arm due to pain. - Constitutional General appearance: uncomfortable, other (Shaking in bed. ) - Neurologic Sensorimotor examination: intact Motor examination - right side: 4/5: deltoids, biceps, triceps, wrist flexion, wrist extension, workforce planning analyst, hip flexors, tibialis Anterior, quadriceps, toe extension (EHL), plantarflexion Motor examination - left side: 4/5: deltoids, hip flexors, quadriceps, tibialis Anterior, toe extension (EHL), plantarflexion Detailed sensory examination: light touch (intact), temperature (intact), vibration (intact) Reflexes: Biceps: 2+, Triceps: 2+, Brachioradialis: 2+, Patella: 2+, Achilles: 2 + Mental Status Examination: awake, oriented to person, follows commands appropriately, answers questions appropriately, no aphasia, impaired cognition, not reliable historian Cranial nerve examination: PERRL, EOMI, visual osuna intact, sensory to face intact, mastication intact, no facial asymmetry is present, no dysarthria, soft palate elevates bilaterally upon phonation, flexes SCM and trapezius muscles symmetrically with full power, tongue protrudes midline, no atrophy or facial fasiculations present Results - Laboratory Findings CBC and BMP: 12/10/17 05:02 12/10/17 05:02 Abnormal lab findings: Abnormal lab results WBC 16.5 K/mcL (4.3-11.1) H 12/10/17 05:02 MCV 81.5 fL (83.0-100.0) L 12/10/17 05:02 MCH 27.0 pg (28.0-33.3) L 12/10/17 05:02 Glucose 120 mg/dL (70-105) H 12/10/17 05:02 Ur Specific [place] 1.026 (1.010-1.025) H 12/10/17 06:20 Urine Protein 100 mg/dL (Neg-Trace) H 12/10/17 06:20 Urine Blood Large (Negative) H 12/10/17 06:20 Urine Nitrite Positive (Negative) A 12/10/17 06:20 Urine Microscopic RBC 30-50 per hpf (0-3) H 12/10/17 06:20 Urine Microscopic WBC 3-5 per hpf (0-3) H 12/10/17 06:20 Ur Squamous Epith Cells Many per lpf (None-Few) H 12/10/17 06:20 Ur Culture Indicated? NO. (NO) A 12/10/17 06:20 Consult Discharge Plan - Plan Referrals: Marquis Cook MD [Primary Care Provider] - <Mynor Hi - Last Filed: 12/10/17 16:51> Date of Encounter: 12/10/17 Time of Encounter: 16:40 Assessment and Plan (1) CVA (cerebrovascular accident) Current Visit: Yes Status: Acute Patient was seen and examined independently. I did discuss this case with Dr. Romero. I agree with his assessment as stated above. There are no infarcts in the left thalamus which may very well be resulting in confusion. However I believe that there are also other elements to consider perhaps another source of infection. She also has swelling of the left arm and hand. Other factors to consider with regard to her mental status change are also mentioned above. Also keeping in mind that thalamic infarcts can also result in a variable levels of confusion and aphasia. In any regard I do not believe that another vascular workup is necessary. We will reevaluate her tomorrow and hopefully be better able to get a better neurologic exam. Recommend continuing antiplatelet therapy aspirin and Plavix and further workup to determine whether not she truly has a UTI to another source of possible infection. Risk factor management is paramount. Qualifiers: CVA mechanism: unspecified Qualified Code(s): I63.9 - Cerebral infarction, unspecified History of Present Illness HPI: The chart was reviewed, patient was seen and examined independently. Ms. Gramajo is a 72 year old female who was actually admitted and seen by Dr. Webster last week for acute infarct involving the territory of the left posterior cerebral artery. She is here today with decline in mental status. She also has swelling of the left arm and hand. Family she fell last night when trying to walk to the rest. She does have an increasing white blood cell count as well. She is alert but pleasantly confused. Case was discussed with Dr. Romero and I agree with his assessment as stated above. He did review the MRI scan of the brain independently. Thalamic infarcts have been known to produce variable levels of confusion as well as aphasia. All Systems: The remainder of the systems were reviewed and are negative Review of Systems: The balance of the systems review is negative. Physical Examination - Vital Signs Vital Signs: Initial Vital Signs Temp Pulse Resp BP Pulse Ox 99.5 F 78 16 135/85 97 12/09/17 18:43 12/09/17 18:43 12/09/17 18:43 12/09/17 18:43 12/09/17 18:43 Results - Laboratory Findings CBC and BMP: 12/10/17 05:02 12/10/17 05:02 Abnormal lab findings: Abnormal lab results WBC 16.5 K/mcL (4.3-11.1) H 12/10/17 05:02 MCV 81.5 fL (83.0-100.0) L 12/10/17 05:02 MCH 27.0 pg (28.0-33.3) L 12/10/17 05:02 Glucose 120 mg/dL (70-105) H 12/10/17 05:02 POC Glucose 132 mg/dL (70-99) H 12/10/17 12:37 Venous Ioniz Calcium 1.06 mmol/L (1.15-1.35) L 12/10/17 05:43 Ur Specific [place] 1.026 (1.010-1.025) H 12/10/17 06:20 Urine Protein 100 mg/dL (Neg-Trace) H 12/10/17 06:20 Urine Blood Large (Negative) H 12/10/17 06:20 Urine Nitrite Positive (Negative) A 12/10/17 06:20 Urine Microscopic RBC 30-50 per hpf (0-3) H 12/10/17 06:20 Urine Microscopic WBC 3-5 per hpf (0-3) H 12/10/17 06:20 Ur Squamous Epith Cells Many per lpf (None-Few) H 12/10/17 06:20 Ur Culture Indicated? NO. (NO) A 12/10/17 06:20
[2017-12-10] MEDS ORDERED: *HR* Dextrose 50 % in Water (Syg) 50 ML SYRINGE IVP PRN (09:46)
[2017-12-10] MEDS ORDERED: D5% in Water 1,000 ML IVC PRN (09:46)
[2017-12-10] MEDS ORDERED: Dextrose Gel 15 GM/37.5 ML TUBE PO PRN ×2 (09:46)
[2017-12-10] MEDS ORDERED: Acetaminophen 325 MG TABLET PO PRN (12:00)
[2017-12-10] MEDS ORDERED: *HR* OxyCODONE/APAP 5/325 TABLET PO PRN (12:01)
[2017-12-10 12:02] LABS: VBG Ionized Calcium 1.06 mmol/L (1.15-1.35)
[2017-12-10] MEDS: Aspirin Enteric Coated 81 MG Tablet PO SCH (12:14)
[2017-12-10] MEDS: *HR* HYDROcodone/Acet 5/325 mg TABLET PO PRN ×2 (12:14→22:57)
[2017-12-10] MEDS: 0.9 % Sodium Chloride w KCl 20 MEQ/1,000 ML MLS IVC SCH (12:15)
[2017-12-10] MEDS: Insulin LISPRO 300 UNITS/3 ML VIAL SQ SCH ×2 (12:43→17:16)
--- NOTE | 2017-12-10 15:43 | Internal Med Progress Note ---
Hospitalist Progress Note - Encounter Date of Encounter: 12/10/17 Time of Encounter: 09:30 - Subjective Interval History: Patient is noted to be confused and disoriented to place and time. She cannot provide appropriate history. Reports significant pain and swelling in left hand , pain in left shoulder and pain in right hand. No fever, chills, shortness of breath, nausea or vomiting. No slurred speech, dysphagia. - Exam Vitals: Temp Pulse Resp BP Pulse Ox 99.0 F 76 17 149/77 94 12/10/17 15:10 12/10/17 15:10 12/10/17 15:10 12/10/17 15:10 12/10/17 15:10 Exam: General: Well-developed female lying comfortably in bed in mild distress Chest: Normal thoracic expansion. Normal breath sounds. Clear to auscultation. Heart: Normal S1 & S2; rhythmic. No rubs or murmurs. Abdomen: Non-distended, soft and nontender Extremities: diffuse left hand edema with significant tenderness; no erythema or foal swelling; would not move left wrist or hand joints due to pain; tenderness and some diffuse swelling in right hand, less than left hand; Neurological: Awake, alert and oriented to person only; confused; motor power 5 /5 in B/L LE, pain-restricted decreased in motor power in B/L UE and hands - Assessment and Plan (1) Hand pain Current Visit: Yes Status: Acute Assessment and Plan: Patient is noted to have bilateral hand pain and swelling. There was a reported fall at the rehabilitation facility injuring her left wrist. X-ray of left wrist shows no acute fracture or trauma. We will obtain CT of left hand. Pain control with when necessary Tylenol and oxycodone. (2) Encephalopathy Current Visit: Yes Status: Acute Assessment and Plan: Acute metabolic encephalopathy related to CVA. No infectious etiology identified. Antibiotics discontinued. Continue current management, supportive care, fall precautions. Physical and occupational therapy evaluation. Swallow evaluation completed at bedside, patient is cleared for regular textures and thin liquids. (3) Diabetes mellitus Current Visit: Yes Status: Chronic Assessment and Plan: Blood sugars noted to be well controlled. Continue Accu-Chek blood glucose monitoring with sliding scale insulin as needed. Diabetic diet. (4) CVA (cerebrovascular accident) Current Visit: Yes Status: Acute Assessment and Plan: Patient was noted to have a recent stroke, discharged to subacute rehabilitation 0n 12/05/17. MRI brain done on 12/03/2017 showed acute infarcts in left periventricular white matter, left thalamus and left occipital lobe. CTA head/neck showed occlusion of the left posterior cerebral artery P4 segment. Echocardiogram at that time did not show cardiac thrombus/atrial fibrillation. MRI brain currently shows acute to subacute infarcts in the left thalamus, left hippocampal tail and deep frontal white matter, some of which seem to be new. continue ASA, Plavix, statin; allow for permissive HTN; monitor vital signs closely; telemetry monitoring. PT/OT evaluation pending; FITNESS TRAINER evaluation as mentioned above; Neurology consulted, will f/up recommendations; (5) HTN (hypertension) Current Visit: Yes Status: Chronic Assessment and Plan: SYD noted to be elevated; will allow for permissive HTN due to possible acute CVA ; (6) Hypokalemia Current Visit: Yes Status: Resolved DVT Prophylaxis: On subcutaneous heparin. - Time Spent with Patient Total time spent is greater than 50% in coordination of care (as documented) at patient's floor/unit and/or counseling patient: Plan of Care Discussed with: family Internal Medicine: Result - Labs CBC & Chem 7: 12/10/17 05:02 12/10/17 05:02 Labs: Short CBC 12/09/17 12/10/17 Range/Units 21:15 05:02 WBC 15.8 H 16.5 H (4.3-11.1) K/mcL Hgb 13.8 13.0 (11.5-15.4) g/dL Hct 40.7 39.2 (35.3-44.9) % Plt Count 243 225 (140-400) K/mcL BMP 12/09/17 12/10/17 21:15 05:02 Sodium 135 L 136 Potassium 3.5 3.6 Chloride 96 L 100 Carbon Dioxide 29 25 BUN 15 15 Creatinine 0.84 0.74 Glucose 117 H 120 H Calcium 9.6 9.1 Liver Function 12/09/17 12/10/17 Range/Units 21:15 05:02 Total Bilirubin 0.8 0.9 (0.3-1.0) mg/dL AST 15 15 (13-39) Units/L ALT 21 17 (7-52) Units/L Alkaline Phosphatase 87 83 (34-104) Units/L Albumin 3.9 3.8 (3.5-5.7) g/dL Urine 12/10/17 Range/Units 06:20 Urine Color Yellow (Yellow) Urine Clarity Clear (Clear) Urine pH 6.0 (5.0-8.0) pH Units Ur Specific [place] 1.026 H (1.010-1.025) Urine Protein 100 H (Neg-Trace) mg/dL Urine Glucose (UA) Normal (Normal) mg/dL - Impressions Impressions Brain MRI 12/09/17 20:38 IMPRESSION: Acute to subacute infarcts in the left thalamus, left hippocampal tail, and deep frontal white matter. D/ / 12/09/2017 22:03:55 Matt Akbar MD / david Interpreting Provider: Matt Akbar MD Chest X-Ray 12/09/17 20:47 IMPRESSION: No acute disease. D/ / Valeriano Clarke MD / Valeriano Clarke MD Interpreting Provider: Valeriano Clarke MD Consult Discharge Plan - Plan Referrals: Marquis Cook MD [Primary Care Provider] - (1) Hand pain Qualifiers: Laterality: bilateral Qualified Code(s): M79.641 - Pain in right hand; M79.642 - Pain in left hand (3) Diabetes mellitus Qualifiers: Diabetes mellitus type: type 2 Diabetes mellitus cardroom drawing runner insulin use: without cardroom drawing runner use Diabetes mellitus complication status: with unspecified complications Qualified Code(s): E11.8 - Type 2 diabetes mellitus with unspecified complications (4) CVA (cerebrovascular accident) Qualifiers: CVA mechanism: unspecified Qualified Code(s): I63.9 - Cerebral infarction, unspecified (5) HTN (hypertension) Qualifiers: Hypertension type: essential hypertension Qualified Code(s): I10 - Essential (primary) hypertension
[2017-12-10] MEDS ORDERED: Isovue-370 500 ML INFUS..BTL IV ONE (15:53)
[2017-12-11] MEDS: Insulin LISPRO 300 UNITS/3 ML VIAL SQ SCH ×2 (04:57→16:43)
[2017-12-11] MEDS: *HR* Heparin 5,000 UNIT/ML VIAL SQ SCH ×3 (06:07→21:43)
[2017-12-11] MEDS: *HR* HYDROcodone/Acet 5/325 mg TABLET PO PRN ×2 (06:07→16:42)
[2017-12-11 06:38] LABS: Basophils % 0.2 %; Eosinophils # 0.1 K/mcL (0.0-0.6); Eosinophils % 0.5 %; Hematocrit 36.9 % (35.3-44.9); Hemoglobin 12.2 g/dL (11.5-15.4); Immature Granulocytes % 0.6 % (0-4); Lymphocytes # 1.6 K/mcL (0.6-4.6); Lymphocytes % 10.8 %; Mean Corpuscular HGB Conc 33.1 g/dL (31.6-35.5); Mean Corpuscular Hemoglobin 27.2 pg (28.0-33.3); Mean Corpuscular Volume 82.2 fL (83.0-100.0); Mean Platelet Volume 10.1 fL (9.4-12.4); Monocytes # 0.9 K/mcL (0.0-1.3); Monocytes % 6.4 %; Neutrophils # 11.7 K/mcL (1.6-8.9); Platelet Count 234 K/mcL (140-400); Red Blood Count 4.49 M/mcL (3.82-4.97); Red Cell Distribution Width 14.6 % (11.5-14.5); Segmented Neutrophils % 81.5 %
[2017-12-11 06:57] LABS: BUN/Creatinine Ratio 24 (6-26); Blood Urea Nitrogen 17 mg/dL (8-23); Calcium 9.2 mg/dL (8.6-10.3); Carbon Dioxide 26 mEq/L (23-29); Chloride 104 mEq/L (98-107); Glucose 117 mg/dL (70-105); Osmolality,Calculated 277 (280-300); Potassium 3.7 mEq/L (3.5-5.1); Sodium 132 mEq/L (136-145); eGFR For Non-African Americans > 60 (> 60)
[2017-12-11] MEDS: Aspirin Enteric Coated 81 MG Tablet PO SCH (10:37)
--- NOTE | 2017-12-11 10:44 | Neurology Progress Note ---
<Sadiq Romero - Last Filed: 12/11/17 10:55> Date of Encounter: 12/11/17 Time of Encounter: 08:45 Assessment and Plan (1) CVA (cerebrovascular accident) Current Visit: Yes Status: Acute Her R side is weaker today than yesterday. L side the same from what could be assessed. L UE not assessed for strength due to pain and refusal to move L UE. Will wiggle fingers and sensation intact. She has swelling of L hand/wrist. She is alert and oriented to person and place today but not time. Thought it was Fall 1997 today. Recommend continuation of current therapy and will reevaluate at your request. Qualifiers: CVA mechanism: unspecified Qualified Code(s): I63.9 - Cerebral infarction, unspecified Subjective Principal diagnosis: AMS Interval history: She says she feels more weak on the R side today. Her L arm/hand still having pain and swelling. She denies any other neurologic symptoms. Mental status is about the same she is oriented to self and place today but not time. Objective - Constitutional Vitals: Temp Pulse Resp BP Pulse Ox 98.6 F 68 18 144/84 96 12/11/17 06:33 12/11/17 06:33 12/11/17 06:33 12/11/17 06:33 12/11/17 06:33 General appearance: Present: cooperative, A&O X 2, no acute distress, answers questions appropriately - Neurological Exam Sensorimotor examination: Present: intact Motor Examination: Present: other (L UE not assessed for strength. She would not move it much do to pain. There is swelling of L hand/wrist. ) Motor examination - right side: 4/5: deltoids, biceps, triceps, wrist flexion, wrist extension, sports agent, hip flexors, tibialis Anterior, quadriceps, toe extension (EHL), plantarflexion Motor examination - left side: 4/5: deltoids, hip flexors, quadriceps, tibialis Anterior, toe extension (EHL), plantarflexion Sensation intact: Present: light touch (intact), temperature (intact), vibration (intact) Mental Status Examination: Present: awake, oriented to person, oriented to place , follows commands appropriately, answers questions appropriately, no aphasia, impaired cognition, not reliable historian Cranial nerve examination: Present: PERRL, EOMI, visual osuna intact, sensory to face intact, mastication intact, no facial asymmetry is present, no dysarthria, soft palate elevates bilaterally upon phonation, flexes SCM and trapezius muscles symmetrically with full power, tongue protrudes midline, no atrophy or facial fasiculations present Results - Laboratory Findings CBC and BMP: 12/11/17 05:52 12/11/17 05:52 Abnormal lab findings: Abnormal lab results WBC 14.3 K/mcL (4.3-11.1) H 12/11/17 05:52 MCV 82.2 fL (83.0-100.0) L 12/11/17 05:52 MCH 27.2 pg (28.0-33.3) L 12/11/17 05:52 RDW 14.6 % (11.5-14.5) H 12/11/17 05:52 Neutrophils # 11.7 K/mcL (1.6-8.9) H 12/11/17 05:52 Sodium 132 mEq/L (136-145) L 12/11/17 05:52 Glucose 117 mg/dL (70-105) H 12/11/17 05:52 POC Glucose 149 mg/dL (70-99) H 12/10/17 15:09 Calculated Osmolality 277 (280-300) L 12/11/17 05:52 Venous Ioniz Calcium 1.06 mmol/L (1.15-1.35) L 12/10/17 05:43 Ur Specific [place] 1.026 (1.010-1.025) H 12/10/17 06:20 Urine Protein 100 mg/dL (Neg-Trace) H 12/10/17 06:20 Urine Blood Large (Negative) H 12/10/17 06:20 Urine Nitrite Positive (Negative) A 12/10/17 06:20 Urine Microscopic RBC 30-50 per hpf (0-3) H 12/10/17 06:20 Urine Microscopic WBC 3-5 per hpf (0-3) H 12/10/17 06:20 Ur Squamous Epith Cells Many per lpf (None-Few) H 12/10/17 06:20 Ur Culture Indicated? NO. (NO) A 12/10/17 06:20 Consult Discharge Plan - Plan Referrals: Marquis Cook MD [Primary Care Provider] - <Mynor Hi E - Last Filed: 12/11/17 17:00> Date of Encounter: 12/11/17 Time of Encounter: 16:53 Assessment and Plan (1) CVA (cerebrovascular accident) Current Visit: Yes Status: Acute Unfortunately this patient has evolution of the initial infarct involving the territory of the left posterior cerebral artery. The abnormalities identified on the diffusion imaging are all within the territory of the left GEOSPATIAL ANALYST. 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 Not convinced that this any interventional treatment to be offered for this. There may be a relative indication for anticoagulation in this instance however not a definitive indication. If anticoagulation is chosen then I would discontinue the Plavix. The aspirin may be maintained at 81 mg. Risk factor management is paramount which includes aggressive management of her hypertension, and other stroke risk factors. Statin therapy is also indicated. Otherwise I will reevaluate her at your request. Qualifiers: CVA mechanism: unspecified Qualified Code(s): I63.9 - Cerebral infarction, unspecified Subjective Interval history: Chart was reviewed, patient was seen and examined independently. Case was discussed with Dr. Romero. Patient today is awake and alert however does have some mild confusion when specifically asked about questions regarding orientation. However from a clinical perspective she is about the same. She has fairly good strength of the right lower extremity in functional strength of the right upper extremity. Comparison with MRI scans from December 03 and December 09 reveal evolution of areas of acute infarct in the territory of the left posterior cerebral artery. CTA study completed in mid November revealed likely occlusion of the left P4 segment of the posterior cerebral artery. I simply believes that the intra-arterial occlusion is evolving unfortunately. Objective - Constitutional Vitals: Temp Pulse Resp BP Pulse Ox 98.6 F 82 18 151/82 96 12/11/17 16:16 12/11/17 16:16 12/11/17 16:16 12/11/17 16:16 12/11/17 16:16 Results - Laboratory Findings CBC and BMP: 12/11/17 05:52 12/11/17 05:52 Abnormal lab findings: Abnormal lab results WBC 14.3 K/mcL (4.3-11.1) H 12/11/17 05:52 MCV 82.2 fL (83.0-100.0) L 12/11/17 05:52 MCH 27.2 pg (28.0-33.3) L 12/11/17 05:52 RDW 14.6 % (11.5-14.5) H 12/11/17 05:52 Neutrophils # 11.7 K/mcL (1.6-8.9) H 12/11/17 05:52 Sodium 132 mEq/L (136-145) L 12/11/17 05:52 Glucose 117 mg/dL (70-105) H 12/11/17 05:52 POC Glucose 149 mg/dL (70-99) H 12/10/17 15:09 Calculated Osmolality 277 (280-300) L 12/11/17 05:52 Venous Ioniz Calcium 1.06 mmol/L (1.15-1.35) L 12/10/17 05:43 Ur Specific [place] 1.026 (1.010-1.025) H 12/10/17 06:20 Urine Protein 100 mg/dL (Neg-Trace) H 12/10/17 06:20 Urine Blood Large (Negative) H 12/10/17 06:20 Urine Nitrite Positive (Negative) A 12/10/17 06:20 Urine Microscopic RBC 30-50 per hpf (0-3) H 12/10/17 06:20 Urine Microscopic WBC 3-5 per hpf (0-3) H 12/10/17 06:20 Ur Squamous Epith Cells Many per lpf (None-Few) H 12/10/17 06:20 Ur Culture Indicated? NO. (NO) A 12/10/17 06:20
--- NOTE | 2017-12-11 10:52 | Internal Med Progress Note ---
Hospitalist Progress Note - Encounter Date of Encounter: 12/11/17 Time of Encounter: 10:02 - Subjective Interval History: 72 y/o female hx DM and HTN treated fro stroke. She denies pain but appears to be in pain. Communicates and follows instructions but altered. Unable to obtain full ROS. No fever overnight per log. Per nurse too fragile to do PT. Per daughter in law- started to notice change in memory and decrease interaction about 2 months ago after mechanical fall. Mentation worsened near admission for gastroenteritis she has not returned her baseline -post stroke this is the worst she had been . is primary caregiver due to her functional incontinence. Patient has stated in past that she doesn't want to be in a "home " but family desires a prognosis to make computer terminal operator plans. - Exam Vitals: Temp Pulse Resp BP Pulse Ox 98.3 F 78 16 177/76 97 12/11/17 10:46 12/11/17 10:46 12/11/17 10:46 12/11/17 10:46 12/11/17 10:46 Exam: General : pleasant, mild distress- appears to be in pain, A&Ox3 Cardiac: RRR no murmurs or gallop Respiratory: CTAB no wheeze or rales Abdomen: Soft, not distended, no tenderness, no masses or organomegaly Extremities: no pedal edema, Left wrist and arm swollen with decreased perception of pulse, no erythema or increased warmth, ROM unable to determine as patient is unwilling due to pain- able to move fingers - Assessment and Plan (1) Encephalopathy Current Visit: Yes Status: Acute Assessment and Plan: Acute changes due to stroke with possible progressive vascular dementia. Also consider delirium due to hand pathology and hospital environment. - monitor mental state - repeat CMP and CBC (2) CVA (cerebrovascular accident) Current Visit: Yes Status: Acute Assessment and Plan: Consulted neurology. Per conversation with Dr Hi - He will advise if need to change from Plavix +ASA to Aggrenox - no need for anit-coagulation - may begin treating HTN again - reasonable explanation for stroke given risk factors of DM and HTN - prognosis is unknown but stroke while on antiplatlelet therapy is poor indicator (3) HTN (hypertension) Current Visit: Yes Status: Chronic Assessment and Plan: Per neurology can stop permissive HTN - restart home dose Lisinopril 10 mg (4) Hypokalemia Current Visit: Yes Status: Resolved Assessment and Plan: K 3.7 ; resolved -monitor with CMPs (5) Hand pain Current Visit: Yes Status: Acute Assessment and Plan: bilateral hand swelling with history of fall at rehab center. WBC 13.3 ddx fracture, cellulitisis v atypical presentation of gout - start ancef - continue pain control tyenol and oxycodone CT hand on 12-10 : "diffuse subcutaneous edema... Polyarticular degenerative changes are present, greatest the 1st carpometacarpal joint.. No evidence of osteomyelitis" unable to evaluate joint effusion but no fractures (6) Diabetes mellitus Current Visit: Yes Status: Chronic Assessment and Plan: ISS DVT Prophylaxis: On subcutaneous heparin. - Time Spent with Patient Total time spent is greater than 50% in coordination of care (as documented) at patient's floor/unit and/or counseling patient: Greater than 35 minutes Plan of Care Discussed with: family Internal Medicine: Result - Labs CBC & Chem 7: 12/11/17 05:52 12/11/17 05:52 Labs: Short CBC 12/11/17 Range/Units 05:52 WBC 14.3 H (4.3-11.1) K/mcL Hgb 12.2 (11.5-15.4) g/dL Hct 36.9 (35.3-44.9) % Plt Count 234 (140-400) K/mcL Neutrophils # 11.7 H (1.6-8.9) K/mcL BMP 12/11/17 05:52 Sodium 132 L Potassium 3.7 Chloride 104 Carbon Dioxide 26 BUN 17 Creatinine 0.70 Glucose 117 H Calcium 9.2 - Impressions Impressions Hand CT 12/10/17 15:53 IMPRESSION: Diffuse nonspecific subcutaneous soft tissue edema, greater dorsally. Correlate with any clinical evidence of cellulitis. No soft tissue gas is found. No focal fluid collection to suggest abscess. No CT evidence of osteomyelitis. D/ / Ziggy Pearson MD / Ziggy Pearson MD Interpreting Provider: Ziggy Pearson MD Consult Discharge Plan - Plan Referrals: Marquis Cook MD [Primary Care Provider] - (2) CVA (cerebrovascular accident) Qualifiers: CVA mechanism: unspecified Qualified Code(s): I63.9 - Cerebral infarction, unspecified (3) HTN (hypertension) Qualifiers: Hypertension type: essential hypertension Qualified Code(s): I10 - Essential (primary) hypertension (5) Hand pain Qualifiers: Laterality: bilateral Qualified Code(s): M79.641 - Pain in right hand; M79.642 - Pain in left hand (6) Diabetes mellitus Qualifiers: Diabetes mellitus type: type 2 Diabetes mellitus computer terminal operator insulin use: without longterm use Diabetes mellitus complication status: with unspecified complications Qualified Code(s): E11.8 - Type 2 diabetes mellitus with unspecified complications
[2017-12-11] MEDS: ceFAZolin 1,000 MG in Water for inj. (sterile) 20 ML 10 ML IVP SCH (16:44)
[2017-12-12] MEDS: *HR* HYDROcodone/Acet 5/325 mg TABLET PO PRN ×4 (00:07→23:01)
[2017-12-12] MEDS: ceFAZolin 1,000 MG in Water for inj. (sterile) 20 ML 10 ML IVP SCH ×4 (00:08→23:02)
[2017-12-12] MEDS: Insulin LISPRO 300 UNITS/3 ML VIAL SQ SCH ×6 (03:35→20:50)
[2017-12-12 05:34] LABS: Basophils % 0.3 %; Eosinophils # 0.1 K/mcL (0.0-0.6); Eosinophils % 0.5 %; Hematocrit 37.9 % (35.3-44.9); Hemoglobin 12.6 g/dL (11.5-15.4); Immature Granulocytes % 0.3 % (0-4); Lymphocytes # 1.5 K/mcL (0.6-4.6); Lymphocytes % 12.5 %; Mean Corpuscular HGB Conc 33.2 g/dL (31.6-35.5); Mean Corpuscular Hemoglobin 26.9 pg (28.0-33.3); Mean Platelet Volume 10.1 fL (9.4-12.4); Monocytes # 0.7 K/mcL (0.0-1.3); Monocytes % 5.8 %; Neutrophils # 9.8 K/mcL (1.6-8.9); Platelet Count 264 K/mcL (140-400); Red Blood Count 4.68 M/mcL (3.82-4.97); Red Cell Distribution Width 14.3 % (11.5-14.5); Segmented Neutrophils % 80.6 %
[2017-12-12 05:36] LABS: BUN/Creatinine Ratio 21 (6-26); Blood Urea Nitrogen 15 mg/dL (8-23); Calcium 9.4 mg/dL (8.6-10.3); Carbon Dioxide 29 mEq/L (23-29); Chloride 97 mEq/L (98-107); Glucose 130 mg/dL (70-105); Osmolality,Calculated 289 (280-300); Potassium 3.5 mEq/L (3.5-5.1); Sodium 138 mEq/L (136-145); eGFR For Non-African Americans > 60 (> 60)
[2017-12-12] MEDS: *HR* Heparin 5,000 UNIT/ML VIAL SQ SCH ×3 (06:33→20:43)
[2017-12-12] MEDS: Aspirin Enteric Coated 81 MG Tablet PO SCH (09:07)
--- NOTE | 2017-12-12 16:21 | Internal Med Progress Note ---
<Shyla Fan M - Last Filed: 12/12/17 16:30> Hospitalist Progress Note - Encounter Date of Encounter: 12/12/17 Time of Encounter: 16:22 - Subjective Interval History: 72 y/o female hx DM and HTN treated for repeat stroke on plavix and asa. She admits to pain in left arm. She is eating well when prompted. She believes she is at rehab center and describes year as "19". But is increasingly move conversational and interactive than yesterday. Unable to obtain full ROS. - Exam Vitals: Temp Pulse Resp BP Pulse Ox 97.8 F 84 18 164/81 93 12/12/17 15:05 12/12/17 15:05 12/12/17 15:05 12/12/17 15:05 12/12/17 15:05 Exam: General : pleasant, mild distress- appears to be in pain, A&Ox1 Cardiac: RRR no murmurs or gallop Respiratory: CTAB no wheeze or rales Abdomen: Soft, not distended, no tenderness, no masses or organomegaly Extremities: no pedal edema, decrease in left wrist swelling with diminished perception of pulse, no erythema or increased warmth, ROM unable to determine as patient is unwilling due to pain- able to move fingers - Assessment and Plan (1) Encephalopathy Current Visit: Yes Status: Acute Assessment and Plan: Gradual improvements in mentation after acute changes due to second stroke. Also consider delirium due to pain from hand pathology and hospital environment. - monitor mental state - repeat CMP and CBC (2) CVA (cerebrovascular accident) Current Visit: Yes Status: Acute Assessment and Plan: continue asa and plavix (3) HTN (hypertension) Current Visit: Yes Status: Chronic Assessment and Plan: continue home dose Lisinopril 10 mg (4) Hypokalemia Current Visit: Yes Status: Resolved Assessment and Plan: K 3.5 - monitor with CMPs (5) Hand pain Current Visit: Yes Status: Acute Assessment and Plan: bilateral hand swelling likely cellulites with history of fall at rehab center. WBC 12.2 - continue ancef - continue pain control tyenol and oxycodone (6) Diabetes mellitus Current Visit: Yes Status: Chronic Assessment and Plan: ISS DVT Prophylaxis: On subcutaneous heparin. - Time Spent with Patient Total time spent is greater than 50% in coordination of care (as documented) at patient's floor/unit and/or counseling patient: Greater than 35 minutes Plan of Care Discussed with: family Internal Medicine: Result - Labs CBC & Chem 7: 12/12/17 04:52 12/12/17 04:52 Labs: Short CBC 12/12/17 Range/Units 04:52 WBC 12.2 H (4.3-11.1) K/mcL Hgb 12.6 (11.5-15.4) g/dL Hct 37.9 (35.3-44.9) % Plt Count 264 (140-400) K/mcL Neutrophils # 9.8 H (1.6-8.9) K/mcL BMP 12/12/17 04:52 Sodium 138 Potassium 3.5 Chloride 97 L Carbon Dioxide 29 BUN 15 Creatinine 0.71 Glucose 130 H Calcium 9.4 Consult Discharge Plan - Plan Referrals: Marquis Cook MD [Primary Care Provider] - <June Luis - Last Filed: 12/12/17 17:23> Hospitalist Progress Note - Encounter Date of Encounter: 12/12/17 - Exam Vitals: Temp Pulse Resp BP Pulse Ox 97.8 F 84 18 164/81 93 12/12/17 15:05 12/12/17 15:05 12/12/17 15:05 12/12/17 15:05 12/12/17 15:05 - Assessment and Plan (1) Encephalopathy Current Visit: Yes Status: Acute (2) Diabetes mellitus Current Visit: Yes Status: Chronic (3) CVA (cerebrovascular accident) Current Visit: Yes Status: Acute (4) HTN (hypertension) Current Visit: Yes Status: Chronic (5) Hypokalemia Current Visit: Yes Status: Resolved (6) Hand pain Current Visit: Yes Status: Acute - Time Spent with Patient Total time spent is greater than 50% in coordination of care (as documented) at patient's floor/unit and/or counseling patient: Internal Medicine: Result - Labs CBC & Chem 7: 12/12/17 04:52 12/12/17 04:52 Labs: Short CBC 12/12/17 Range/Units 04:52 WBC 12.2 H (4.3-11.1) K/mcL Hgb 12.6 (11.5-15.4) g/dL Hct 37.9 (35.3-44.9) % Plt Count 264 (140-400) K/mcL Neutrophils # 9.8 H (1.6-8.9) K/mcL BMP 12/12/17 04:52 Sodium 138 Potassium 3.5 Chloride 97 L Carbon Dioxide 29 BUN 15 Creatinine 0.71 Glucose 130 H Calcium 9.4 - Attending Attestation I examined this patient and my medical decision-making was reviewed with the Resident Physician Dr. Fan. I agree with the documented findings, disposition and treatment plan as described except to the extent set forth below. Ms. Gramajo is a 72 y/o F with known HTN, DM2 HLD with recent CVA left residual paralysis pt admitted with worsening RUE weakness and Left UE pain. Pt is alert , awake and O x 3, however still has some memory issues. Her Left hand pain and swelling better today Chest: Diminished BS B/l Heart: S1S2+ RRR No murmurs Abd: Soft NT, BS + Ext: Improving Left hand edema , tenderness + mild erythema Neuro: b/l UE weakness Left> Rt a/p 1. Acute Left thalamus, hippocampus and deep frontal CVA 2. Post cerebral artery occlusion 3. Acute embolic CVA cont ASA + Plavix and statin risk factor modification Talked to Neurologist from [facility], who recommend cardiac work up to r/o any cardiac risk factors ( Afib, Atrial thrombi ) for this embolic CVA It is too risky to start her on any anti coag due to evolving CVA, high risk for hemorrhage. Recommend cardiac work up first explained this to pt and her ..they would like continue the care here will d/c her back to [facility] once her Left hand cellulities improved Will talk to cardiology about 4 weeks holter monitor for now and possible loop recorder later if needed, also will discuss about MARKIE option to r/o any atrial thrombi 3. Left UE cellulites Cont ANcef <Shyla Fan - Last Filed: 12/12/17 16:30> (2) CVA (cerebrovascular accident) Qualifiers: CVA mechanism: unspecified Qualified Code(s): I63.9 - Cerebral infarction, unspecified (3) HTN (hypertension) Qualifiers: Hypertension type: essential hypertension Qualified Code(s): I10 - Essential (primary) hypertension (5) Hand pain Qualifiers: Laterality: bilateral Qualified Code(s): M79.641 - Pain in right hand; M79.642 - Pain in left hand (6) Diabetes mellitus Qualifiers: Diabetes mellitus type: type 2 Diabetes mellitus roasterman insulin use: without roasterman use Diabetes mellitus complication status: with unspecified complications Qualified Code(s): E11.8 - Type 2 diabetes mellitus with unspecified complications <June Luis - Last Filed: 12/12/17 17:23> (2) Diabetes mellitus Qualifiers: Diabetes mellitus type: type 2 Diabetes mellitus nursing home insulin use: without roasterman use Diabetes mellitus complication status: with unspecified complications Qualified Code(s): E11.8 - Type 2 diabetes mellitus with unspecified complications (3) CVA (cerebrovascular accident) Qualifiers: CVA mechanism: unspecified Qualified Code(s): I63.9 - Cerebral infarction, unspecified (4) HTN (hypertension) Qualifiers: Hypertension type: essential hypertension Qualified Code(s): I10 - Essential (primary) hypertension (6) Hand pain Qualifiers: Laterality: bilateral Qualified Code(s): M79.641 - Pain in right hand; M79.642 - Pain in left hand
[2017-12-13] MEDS: Piperacillin/Tazobactam 3.375 GM in 0.9 % Sodium Chloride Mini Bag 100 ML IVPB SCH (01:09)
[2017-12-13] MEDS: *HR* Heparin 5,000 UNIT/ML VIAL SQ SCH ×3 (05:01→21:36)
[2017-12-13 05:06] LABS: Basophils % 0.4 %; Eosinophils # 0.1 K/mcL (0.0-0.6); Eosinophils % 0.7 %; Hematocrit 39.5 % (35.3-44.9); Hemoglobin 13.1 g/dL (11.5-15.4); Immature Granulocytes % 0.3 % (0-4); Lymphocytes # 1.5 K/mcL (0.6-4.6); Lymphocytes % 14.2 %; Mean Corpuscular HGB Conc 33.2 g/dL (31.6-35.5); Mean Corpuscular Hemoglobin 27.1 pg (28.0-33.3); Mean Corpuscular Volume 81.6 fL (83.0-100.0); Mean Platelet Volume 9.9 fL (9.4-12.4); Monocytes # 0.8 K/mcL (0.0-1.3); Monocytes % 7.8 %; Neutrophils # 7.9 K/mcL (1.6-8.9); Platelet Count 276 K/mcL (140-400); Red Blood Count 4.84 M/mcL (3.82-4.97); Segmented Neutrophils % 76.6 %
[2017-12-13 05:28] LABS: BUN/Creatinine Ratio 23 (6-26); Blood Urea Nitrogen 17 mg/dL (8-23); Calcium 9.3 mg/dL (8.6-10.3); Carbon Dioxide 29 mEq/L (23-29); Chloride 98 mEq/L (98-107); Glucose 129 mg/dL (70-105); Osmolality,Calculated 287 (280-300); Potassium 3.2 mEq/L (3.5-5.1); Sodium 137 mEq/L (136-145); eGFR For Non-African Americans > 60 (> 60)
[2017-12-13] MEDS: Insulin LISPRO 300 UNITS/3 ML VIAL SQ SCH ×4 (08:29→19:45)
[2017-12-13] MEDS: ceFAZolin 1,000 MG in Water for inj. (sterile) 20 ML 10 ML IVP SCH ×3 (08:35→22:58)
[2017-12-13] MEDS: Aspirin Enteric Coated 81 MG Tablet PO SCH (08:35)
[2017-12-13] MEDS: *HR* HYDROcodone/Acet 5/325 mg TABLET PO PRN (08:38)
--- NOTE | 2017-12-13 13:16 | Internal Med Progress Note ---
Hospitalist Progress Note - Encounter Date of Encounter: 12/13/17 Time of Encounter: 13:14 - Subjective Interval History: Ms. Gramajo is a 72 y/o F with known HTN, DM2 HLD with recent CVA left occipital, thalamic and left periventricular matter associated with left residual paralysis pt was sent to our hospital from [facility] facility worsening RUE weakness, confusion, memory problems and Left UE pain. Pt is alert , awake and O x 3, She seems to be more with it today. Left-hand swelling and pain also better today - Exam Vitals: Temp Pulse Resp BP Pulse Ox 97.7 F 104 17 153/93 96 12/13/17 11:49 12/13/17 11:49 12/13/17 11:49 12/13/17 11:49 12/13/17 11:49 Exam: General : pleasant, mild distress- appears to be in pain, A&Ox1 Cardiac: RRR no murmurs or gallop Respiratory: CTAB no wheeze or rales Abdomen: Soft, not distended, no tenderness, no masses or organomegaly Extremities: decrease in left wrist swelling and tenderness. No erythema. Neuro: Still has Rt UE < Lt UE weakness. - Assessment and Plan (1) Cerebrovascular accident (CVA) of left thalamus Current Visit: Yes Status: Acute Assessment and Plan: Mostly embolic stroke does have a recurrent and multiple infarctions including left thalamus, left hippocampal tail, deep frontal white matter looks more like a embolic stroke could be from posterior cerebral artery occlusion however need to rule out cardiac source for embolic stroke so for EKG/Tele did not show any Afib / arrythamias may need MARKIE to r/o atrial thrombi Will scheduled for MARKIE on Friday continue aspirin, Plavix and statin for now not a candidate for anticoagulation due to high risk for brain hemorrhage continue PT OT eval (2) Cellulitis of left hand Current Visit: Yes Status: Acute Assessment and Plan: Improving continue IV Ancef (3) CVA (cerebrovascular accident) Current Visit: Yes Status: Acute Assessment and Plan: Patient was noted to have a recent stroke, discharged to subacute rehabilitation 0n 12/05/17. MRI brain done on 12/03/2017 showed acute infarcts in left periventricular white matter, left thalamus and left occipital lobe. CTA head/neck showed occlusion of the left posterior cerebral artery P4 segment. Echocardiogram at that time did not show cardiac thrombus/atrial fibrillation. MRI brain currently shows acute to subacute infarcts in the left thalamus, left hippocampal tail and deep frontal white matter, some of which seem to be new. continue ASA, Plavix, statin; allow for permissive HTN; monitor vital signs closely; telemetry monitoring. PT/OT evaluation pending; DIESEL DINKEY OPERATOR evaluation as mentioned above; Neurology consulted, will f/up recommendations; (4) Encephalopathy Current Visit: Yes Status: Acute Assessment and Plan: Acute metabolic encephalopathy related to CVA improving (5) Diabetes mellitus Current Visit: Yes Status: Chronic Assessment and Plan: Blood sugars noted to be well controlled. Continue Accu-Chek blood glucose monitoring with sliding scale insulin as needed. Diabetic diet. (6) HTN (hypertension) Current Visit: Yes Status: Chronic Assessment and Plan: Fairly controlled increased lisinopril to 20 mg also added metoprolol 25 mg PO b.i.d. (7) Hypokalemia Current Visit: Yes Status: Resolved Assessment and Plan: Continue replacing - Time Spent with Patient Total time spent is greater than 50% in coordination of care (as documented) at patient's floor/unit and/or counseling patient: Internal Medicine: Result - Labs CBC & Chem 7: 12/13/17 04:35 12/13/17 04:35 Labs: Short CBC 12/13/17 Range/Units 04:35 WBC 10.3 (4.3-11.1) K/mcL Hgb 13.1 (11.5-15.4) g/dL Hct 39.5 (35.3-44.9) % Plt Count 276 (140-400) K/mcL Neutrophils # 7.9 (1.6-8.9) K/mcL BMP 12/13/17 04:35 Sodium 137 Potassium 3.2 L Chloride 98 Carbon Dioxide 29 BUN 17 Creatinine 0.75 Glucose 129 H Calcium 9.3 Consult Discharge Plan - Plan Referrals: Marquis Cook MD [Primary Care Provider] - (3) CVA (cerebrovascular accident) Qualifiers: CVA mechanism: unspecified Qualified Code(s): I63.9 - Cerebral infarction, unspecified (5) Diabetes mellitus Qualifiers: Diabetes mellitus type: type 2 Diabetes 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
[2017-12-14 04:40] LABS: Basophils % 0.5 %; Eosinophils # 0.1 K/mcL (0.0-0.6); Eosinophils % 1.3 %; Hematocrit 37.4 % (35.3-44.9); Hemoglobin 12.5 g/dL (11.5-15.4); Immature Granulocytes % 0.2 % (0-4); Lymphocytes # 1.5 K/mcL (0.6-4.6); Lymphocytes % 18.7 %; Mean Corpuscular HGB Conc 33.4 g/dL (31.6-35.5); Mean Corpuscular Hemoglobin 27.5 pg (28.0-33.3); Mean Corpuscular Volume 82.2 fL (83.0-100.0); Monocytes # 0.7 K/mcL (0.0-1.3); Monocytes % 8.4 %; Neutrophils # 5.8 K/mcL (1.6-8.9); Platelet Count 275 K/mcL (140-400); Red Blood Count 4.55 M/mcL (3.82-4.97); Red Cell Distribution Width 14.1 % (11.5-14.5); Segmented Neutrophils % 70.9 %
[2017-12-14 05:00] LABS: BUN/Creatinine Ratio 23 (6-26); Blood Urea Nitrogen 20 mg/dL (8-23); Calcium 9.2 mg/dL (8.6-10.3); Carbon Dioxide 29 mEq/L (23-29); Chloride 99 mEq/L (98-107); Glucose 133 mg/dL (70-105); Osmolality,Calculated 289 (280-300); Potassium 3.2 mEq/L (3.5-5.1); Sodium 137 mEq/L (136-145); eGFR For Non-African Americans > 60 (> 60)
[2017-12-14] MEDS: *HR* Heparin 5,000 UNIT/ML VIAL SQ SCH ×3 (06:11→21:44)
[2017-12-14] MEDS: Insulin LISPRO 300 UNITS/3 ML VIAL SQ SCH ×4 (08:31→21:09)
[2017-12-14] MEDS: Aspirin Enteric Coated 81 MG Tablet PO SCH (09:39)
[2017-12-14] MEDS: ceFAZolin 1,000 MG in Water for inj. (sterile) 20 ML 10 ML IVP SCH (09:40)
--- NOTE | 2017-12-14 13:29 | Internal Med Progress Note ---
Hospitalist Progress Note - Encounter Date of Encounter: 12/14/17 Time of Encounter: 13:27 - Subjective Interval History: Ms. Gramajo is a 72 y/o F with known HTN, DM2 HLD with recent CVA left occipital, thalamic and left periventricular matter associated with left residual paralysis pt was sent to our hospital from [facility] facility worsening RUE weakness, confusion, memory problems and Left UE pain. Pt is alert , awake and O x 3, She seems to be more with it today. Left-hand swelling and pain also better today - Exam Vitals: Temp Pulse Resp BP Pulse Ox 98.3 F 85 18 182/93 94 12/14/17 11:05 12/14/17 07:06 12/14/17 11:05 12/14/17 11:05 12/14/17 11:05 Exam: General : pleasant, mild distress- appears to be in pain, A&Ox1 Cardiac: RRR no murmurs or gallop Respiratory: CTAB no wheeze or rales Abdomen: Soft, not distended, no tenderness, no masses or organomegaly Extremities: decrease in left wrist swelling and tenderness. No erythema. Neuro: Still has Rt UE < Lt UE weakness. - Assessment and Plan (1) Cerebrovascular accident (CVA) of left thalamus Current Visit: Yes Status: Acute Assessment and Plan: Mostly embolic stroke does have a recurrent and multiple infarctions including left thalamus, left hippocampal tail, deep frontal white matter could be from posterior cerebral artery occlusion however need to rule out cardiac source for embolic stroke so far EKG/Tele did not show any Afib / arrhythmias may need MARKIE to r/o atrial thrombi Will scheduled for MARKIE on Friday continue aspirin, Plavix and statin for now not a candidate for anticoagulation due to high risk for brain hemorrhage continue PT OT eval (2) HTN (hypertension) Current Visit: Yes Status: Chronic Assessment and Plan: still fairly controlled with increased lisinopril 20 mg and metoprolol 25 mg PO b.i.d. Added Norvasc 10mg Daily also placed her on Hydrazine IV PRN (3) Cellulitis of left hand Current Visit: Yes Status: Acute Assessment and Plan: Improving switch to PO keflex (4) CVA (cerebrovascular accident) Current Visit: Yes Status: Acute Assessment and Plan: see above (5) Encephalopathy Current Visit: Yes Status: Acute Assessment and Plan: Acute metabolic encephalopathy related to CVA improving (6) Diabetes mellitus Current Visit: Yes Status: Chronic Assessment and Plan: Diabetic diet on ISS (7) Hypokalemia Current Visit: Yes Status: Resolved - Time Spent with Patient Total time spent is greater than 50% in coordination of care (as documented) at patient's floor/unit and/or counseling patient: Internal Medicine: Result - Labs CBC & Chem 7: 12/14/17 03:57 12/14/17 03:57 Labs: Short CBC 12/14/17 Range/Units 03:57 WBC 8.2 (4.3-11.1) K/mcL Hgb 12.5 (11.5-15.4) g/dL Hct 37.4 (35.3-44.9) % Plt Count 275 (140-400) K/mcL Neutrophils # 5.8 (1.6-8.9) K/mcL BMP 12/14/17 03:57 Sodium 137 Potassium 3.2 L Chloride 99 Carbon Dioxide 29 BUN 20 Creatinine 0.88 Glucose 133 H Calcium 9.2 - Impressions Impressions Head CT 12/14/17 02:54 IMPRESSION: No acute intracranial abnormality. No change from the recent study. Chronic small vessel ischemic white matter disease. D/ / Edgar Romero MD / Edgar Romero MD Interpreting Provider: Edgar Romero MD Consult Discharge Plan - Plan Referrals: Marquis Cook MD [Primary Care Provider] - (2) HTN (hypertension) Qualifiers: Hypertension type: essential hypertension Qualified Code(s): I10 - Essential (primary) hypertension (4) CVA (cerebrovascular accident) Qualifiers: CVA mechanism: unspecified Qualified Code(s): I63.9 - Cerebral infarction, unspecified (6) Diabetes mellitus Qualifiers: Diabetes mellitus type: type 2 Diabetes mellitus ad terminal makeup operator insulin use: without ad terminal makeup operator use Diabetes mellitus complication status: with unspecified complications Qualified Code(s): E11.8 - Type 2 diabetes mellitus with unspecified complications
[2017-12-14] MEDS: *HR* HYDROcodone/Acet 5/325 mg TABLET PO PRN (14:49)
[2017-12-14] MEDS: amLODIPine 5 MG TABLET PO SCH (14:49)
[2017-12-14] MEDS: cephALEXin 500 MG CAPSULE PO SCH ×2 (16:29→21:09)
[2017-12-15] MEDS: *HR* Heparin 5,000 UNIT/ML VIAL SQ SCH ×3 (06:24→20:55)
[2017-12-15 06:48] LABS: Basophils % 0.4 %; Eosinophils # 0.1 K/mcL (0.0-0.6); Eosinophils % 0.6 %; Hematocrit 38.3 % (35.3-44.9); Hemoglobin 12.8 g/dL (11.5-15.4); Immature Granulocytes % 0.4 % (0-4); Lymphocytes # 1.3 K/mcL (0.6-4.6); Mean Corpuscular HGB Conc 33.4 g/dL (31.6-35.5); Mean Corpuscular Hemoglobin 26.7 pg (28.0-33.3); Mean Platelet Volume 9.6 fL (9.4-12.4); Monocytes # 0.9 K/mcL (0.0-1.3); Monocytes % 8.8 %; Neutrophils # 7.6 K/mcL (1.6-8.9); Platelet Count 294 K/mcL (140-400); Red Blood Count 4.79 M/mcL (3.82-4.97); Red Cell Distribution Width 14.3 % (11.5-14.5); Segmented Neutrophils % 76.8 %
[2017-12-15 07:07] LABS: BUN/Creatinine Ratio 23 (6-26); Blood Urea Nitrogen 18 mg/dL (8-23); Calcium 9.5 mg/dL (8.6-10.3); Carbon Dioxide 30 mEq/L (23-29); Chloride 98 mEq/L (98-107); Glucose 153 mg/dL (70-105); Osmolality,Calculated 291 (280-300); Potassium 3.2 mEq/L (3.5-5.1); Sodium 138 mEq/L (136-145); eGFR For Non-African Americans > 60 (> 60)
[2017-12-15] MEDS: Insulin LISPRO 300 UNITS/3 ML VIAL SQ SCH ×4 (08:46→21:11)
[2017-12-15] MEDS ORDERED: Lidocaine Viscous Oral Soln 15 ML SOLUTION MM PRN (08:58)
[2017-12-15] MEDS ORDERED: Tetracaine/Benzocaine/Butamben 200MG/SPRAY (100SPY/BOT) MM ONE (08:59)
[2017-12-15] MEDS ORDERED: 0.9 % Sodium Chloride 500 ML IVC ONE (08:59)
[2017-12-15] MEDS ORDERED: Potassium Chloride 40 MEQ, Lidocaine 1% 2 ML in D5% in Water 500 ML IVPB ONE (09:04)
--- NOTE | 2017-12-15 09:06 | Internal Med Progress Note ---
Hospitalist Progress Note - Encounter Date of Encounter: 12/15/17 - Subjective Interval History: Ms. Gramajo is a 72 y/o F with known HTN, DM2 HLD with recent CVA left occipital, thalamic and left periventricular matter associated with left residual paralysis pt was sent to our hospital from [facility] facility worsening RUE weakness, confusion, memory problems and Left UE pain. Today, - Exam Vitals: Temp Pulse Resp BP Pulse Ox 97.8 F 96 18 179/91 92 12/15/17 08:00 12/15/17 08:00 12/15/17 08:00 12/15/17 08:00 12/15/17 08:00 - Assessment and Plan (1) Cellulitis of left hand Current Visit: Yes Status: Acute (2) Cerebrovascular accident (CVA) of left thalamus Current Visit: Yes Status: Acute (3) Diabetes mellitus Current Visit: Yes Status: Chronic (4) DVT prophylaxis Current Visit: No Status: Resolved (5) Encephalopathy Current Visit: Yes Status: Acute (6) HTN (hypertension) Current Visit: Yes Status: Chronic (7) Hypokalemia Current Visit: Yes Status: Resolved - Time Spent with Patient Total time spent is greater than 50% in coordination of care (as documented) at patient's floor/unit and/or counseling patient: Internal Medicine: Result - Labs CBC & Chem 7: 12/15/17 06:11 12/15/17 06:11 Labs: Short CBC 12/15/17 Range/Units 06:11 WBC 9.9 (4.3-11.1) K/mcL Hgb 12.8 (11.5-15.4) g/dL Hct 38.3 (35.3-44.9) % Plt Count 294 (140-400) K/mcL Neutrophils # 7.6 (1.6-8.9) K/mcL BMP 12/15/17 06:11 Sodium 138 Potassium 3.2 L Chloride 98 Carbon Dioxide 30 H BUN 18 Creatinine 0.78 Glucose 153 H Calcium 9.5 Consult Discharge Plan - Plan Referrals: Marquis Cook MD [Primary Care Provider] - (3) Diabetes mellitus Qualifiers: Diabetes mellitus type: type 2 Diabetes mellitus long term care pharmacist insulin use: without long term care pharmacist use Diabetes mellitus complication status: with unspecified complications Qualified Code(s): E11.8 - Type 2 diabetes mellitus with unspecified complications (6) HTN (hypertension) Qualifiers: Hypertension type: essential hypertension Qualified Code(s): I10 - Essential (primary) hypertension
[2017-12-15] MEDS: *HR* Midazolam HCl 5 MG/5 ML VIAL IVP PRN ×2 (09:55→10:00)
[2017-12-15] MEDS: *HR* FentaNYL (PF) 100 MCG/2 ML VIAL IVP PRN ×2 (09:55→10:00)
[2017-12-15] MEDS: cephALEXin 500 MG CAPSULE PO SCH ×4 (11:27→20:55)
[2017-12-15] MEDS: Aspirin Enteric Coated 81 MG Tablet PO SCH (12:28)
[2017-12-15] MEDS: amLODIPine 5 MG TABLET PO SCH (12:28)
--- NOTE | 2017-12-15 12:40 | Discharge Summary ---
- NOTES TO OUTPATIENT PROVIDER Notes to Outpatient Provider: Will need to f/u on holter results to r/o afib as cause for embolic stroke. Date of Encounter: 12/15/17 Time of Encounter: 12:00 - Discharge Diagnosis (1) Cellulitis of left hand Priority: Secondary Status: Acute (2) Cerebrovascular accident (CVA) of left thalamus Priority: Primary Status: Acute (3) Diabetes mellitus Priority: Primary Status: Chronic Qualifiers: Diabetes mellitus type: type 2 Diabetes mellitus intermediate designer insulin use: without intermediate designer use Diabetes mellitus complication status: with unspecified complications Qualified Code(s): E11.8 - Type 2 diabetes mellitus with unspecified complications (4) DVT prophylaxis Priority: Secondary Status: Resolved (5) Encephalopathy Priority: Secondary Status: Acute (6) HTN (hypertension) Priority: Secondary Status: Chronic Qualifiers: Hypertension type: essential hypertension Qualified Code(s): I10 - Essential (primary) hypertension (7) Hypokalemia Priority: Secondary Status: Resolved Hospital course: Ms. Gramajo is a 72 year old female - Time Spent with Patient Total time spent providing and/or coordinating discharge services: - Discharge Medications Home Medications: Allopurinol [Zyloprim 100 MG] 100 mg PO DAILY 06/24/16 [History] Atorvastatin [Lipitor] 40 mg PO HS 06/24/16 [History] Cholecalciferol (Vitamin D3) [Vitamin D3] 1,000 unit PO DAILY 06/24/16 [History] Clopidogrel [Plavix] 75 mg PO DAILY 06/24/16 [History] DiphenhydraMINE [Benadryl] 25 mg PO Q4HR PRN 06/24/16 [History] Lisinopril [Zestril] 10 mg PO DAILY 06/24/16 [History] Sertraline [Zoloft] 100 mg PO DAILY 06/24/16 [History] Lansoprazole [Prevacid] 30 mg PO DAILY 12/01/17 [History] Sitagliptin Phosphate [Januvia] 50 mg PO DAILY 12/01/17 [History] Aspirin Enteric Coated [Aspirin EC] 81 mg PO DAILY tablet. 12/05/17 [Rx] Oxycodone HCl/Acetaminophen [Percocet 5-325 mg Tablet] 1 each PO TID PRN 5 Days #15 tablet 12/05/17 [Rx] Furosemide [Lasix] 10 mg PO DAILY 12/10/17 [History] Nadolol [Nadolol] 20 mg PO TID 12/10/17 [History] Metoprolol [Lopressor] 50 mg PO BID tablet 12/15/17 [Rx] amLODIPine [Norvasc] 10 mg PO DAILY tablet 12/15/17 [Rx] cephALEXin [Keflex] 500 mg PO TID 8 Days #25 capsule 12/15/17 [Rx] Allergies/Adverse Reactions: 3 Allergy/AdvReac Type Severity Reaction Status Date / Time azithromycin [From Zithromax] AdvReac Vomiting Verified 12/10/17 09:42 ciprofloxacin [From Cipro] AdvReac Vomiting Verified 12/10/17 09:42 sulfamethoxazole AdvReac Vomiting Verified 12/10/17 09:42 [From Bactrim] trimethoprim [From Bactrim] AdvReac Vomiting Verified 12/10/17 09:42 Date of admission: 12/09/17 19:35 Primary care physician: Marquis Cook MD Consults: 12/09/17 18:46 Consult to Nutrition [CONS] Routine Comment: Consulting Provider: NUTRITION Reason for Dietary Consult: MST Score Consult to Customs Port Director [CONS] Routine Reason for SW Consult[facility] 12/10/17 02:37 Consult to Speech Therapy [CONS] Routine Comment: Evaluate, develop and implement POC Reason for Consult: Suspect Acute stroke. Patient NPO. Assess ability to take PO. Call Completed: No 12/10/17 02:38 Consult to Neurology [CONS] Routine Consulting Provider: Neurology [facility] Reason for Consult: Possible recurrent acute stroke Call Completed: No 12/10/17 15:29 Consult to Occupational Therapy [CONS] Routine Comment: Evaluate, develop and implement POC Reason for Consult: eval for ecf will need pre cert Does patient have active BEDREST order?: No Is patient medically & hemodynamically stable?: Yes Consult to Physical Therapy [CONS] Routine Comment: Evaluate, develop and implement POC Reason for Consult: eval for ecf will need pre cert Does patient have active BEDREST order?: No Is patient medically & hemodynamically stable?: Yes Discharging clinician: June Luis Anticipated date of discharge: 12/15/17 - Constitutional Vitals: Temp Pulse Resp BP Pulse Ox 98.3 F 98 16 159/89 92 12/15/17 11:42 12/15/17 11:42 12/15/17 11:42 12/15/17 11:42 12/15/17 11:42 - Patient Status Disposition: Transfer Hospital Swing Bed Condition: Fair Overall status at discharge: patient is progressing back to baseline - Discharge Instructions Follow Up With: Marquis Cook MD [Primary Care Provider] - (patient is going to [facility]) - Diet and Activity Activity: wear oxygen at night Diet: regular diet
--- NOTE | 2017-12-15 14:16 | Discharge Summary ---
<Mikala Turpin - Last Filed: 12/16/17 14:47> - NOTES TO OUTPATIENT PROVIDER Notes to Outpatient Provider: Will need to monitor blood pressure closely as she has been hypertensive in the hospital medication was changed from metoprolol 50mg BID back to her home dose of Nadolol 20 TID. We also increased lisinopril from 10mg to 20mg aily.and added Norvasc 10mg daily. Will need to f/ u outpatient with Neurology. Date of Encounter: 12/16/17 Time of Encounter: 10:04 - Discharge Diagnosis (1) Cellulitis of left hand Priority: Secondary Status: Ruled-out (2) Cerebrovascular accident (CVA) of left thalamus Priority: Primary Status: Acute (3) Diabetes mellitus Priority: Secondary Status: Chronic Qualifiers: Diabetes mellitus type: type 2 Diabetes mellitus [facility] insulin use: without dedicated intermodal truck driver use Diabetes mellitus complication status: with unspecified complications Qualified Code(s): E11.8 - Type 2 diabetes mellitus with unspecified complications (4) DVT prophylaxis Priority: Secondary Status: Resolved (5) Encephalopathy Priority: Secondary Status: Acute (6) HTN (hypertension) Priority: Secondary Status: Chronic Qualifiers: Hypertension type: essential hypertension Qualified Code(s): I10 - Essential (primary) hypertension (7) Hypokalemia Priority: Secondary Status: Acute Hospital course: Ms. Gramajo is a 72 year old female with past medical history of hypertension, diabetes, hyperlipidemia and TIA with recent hospitalization at [place] on for possible acute gastroenteritis and found to have evidence of recent CVA on MRI. She was evaluated by neurology, subsequent restarted on aspirin and Plavix and discharged to rehabilitation in [place]. Per medical records, patient had gradual decline in her mental status with decreased responsiveness in the absence of any acute neurologic deficits. CT scan of the head on 12/08 showed no acute intra-cranial abnormality with mild microvascular ischemic disease. In the ED, MRI of brain showed acute to subacute infarcts in the left thalamus, left hippocampal tail, and deep frontal white matter which compared to prior MRI scan on 12/03/17 shows evolution of areas of acute infarct in the territory of the left posterior cerebral artery. Patient had also fallen while at rehabilitation the day before arrival to the ED and reported left wrist pain. An x-ray was performed which was negative for fracture. CT scan showed diffuse nonspecific subcutaneous soft tissue edema, most likely 2/2 to wrist sprain. Patient was admitted to the floor for evaluation of cause of recurrent CVAs. Neurology was consulted and determine the most logical explanation for this is intracranial stenosis of the left PCU RN which is continuing to evolve as CTA study completed in mid November revealed likely occlusion of the left P4 segment of the posterior cerebral artery. Neurology recommended continued ASA and Plavix. But due to recurrent strokes, cardiac source needed to be r/o so MARKIE was performed which showed no thrombus. Patient was on telemetry during her length of stay and no arrhythmia was noted. Patient was determined to need an ECF due to residual weakness and need for rehabilitation. [facility] lisinopril 20mg daily and Norvasc 10mg for her continued elevated blood pressures. - Time Spent with Patient Total time spent providing and/or coordinating discharge services: - Discharge Medications Prescriptions: amLODIPine [Norvasc] 10 mg PO DAILY #30 tablet Home Medications: Allopurinol [Zyloprim 100 MG] 100 mg PO DAILY 06/24/16 [History] Atorvastatin [Lipitor] 40 mg PO HS 06/24/16 [History] Cholecalciferol (Vitamin D3) [Vitamin D3] 1,000 unit PO DAILY 06/24/16 [History] Clopidogrel [Plavix] 75 mg PO DAILY 06/24/16 [History] DiphenhydraMINE [Benadryl] 25 mg PO Q4HR PRN 06/24/16 [History] Sertraline [Zoloft] 100 mg PO DAILY 06/24/16 [History] Lansoprazole [Prevacid] 30 mg PO DAILY 12/01/17 [History] Sitagliptin Phosphate [Januvia] 50 mg PO DAILY 12/01/17 [History] Aspirin Enteric Coated [Aspirin EC] 81 mg PO DAILY tablet. 12/05/17 [Rx] Furosemide [Lasix] 10 mg PO DAILY 12/10/17 [History] Nadolol 20 mg PO TID 12/10/17 [History] Lisinopril [Zestril] 20 mg PO DAILY tablet 12/16/17 [Rx] amLODIPine [Norvasc] 10 mg PO DAILY #30 tablet 12/16/17 [Rx] Allergies/Adverse Reactions: 3 Allergy/AdvReac Type Severity Reaction Status Date / Time azithromycin [From Zithromax] AdvReac Vomiting Verified 12/10/17 09:42 ciprofloxacin [From Cipro] AdvReac Vomiting Verified 12/10/17 09:42 sulfamethoxazole AdvReac Vomiting Verified 12/10/17 09:42 [From Bactrim] trimethoprim [From Bactrim] AdvReac Vomiting Verified 12/10/17 09:42 Date of admission: 12/09/17 19:35 Primary care physician: Marquis Cook MD Consults: 12/09/17 18:46 Consult to Nutrition [CONS] Routine Comment: Consulting Provider: NUTRITION Reason for Dietary Consult: MST Score Consult to Subassembler [CONS] Routine Reason for SW Consult: [facility] 12/10/17 02:37 Consult to Speech Therapy [CONS] Routine Comment: Evaluate, develop and implement POC Reason for Consult: Suspect Acute stroke. Patient NPO. Assess ability to take PO. Call Completed: No 12/10/17 02:38 Consult to Neurology [CONS] Routine Consulting Provider: Neurology [facility] Reason for Consult: Possible recurrent acute stroke Call Completed: No 12/10/17 15:29 Consult to Occupational Therapy [CONS] Routine Comment: Evaluate, develop and implement POC Reason for Consult: eval for ecf will need pre cert Does patient have active BEDREST order?: No Is patient medically & hemodynamically stable?: Yes Consult to Physical Therapy [CONS] Routine Comment: Evaluate, develop and implement POC Reason for Consult: eval for ecf will need pre cert Does patient have active BEDREST order?: No Is patient medically & hemodynamically stable?: Yes Discharging clinician: June Luis Anticipated date of discharge: 12/15/17 - Constitutional Vitals: Temp Pulse Resp BP Pulse Ox 98.3 F 98 16 159/89 92 12/15/17 11:42 12/15/17 11:42 12/15/17 11:42 12/15/17 11:42 12/15/17 11:42 Exam: General : no distress, A&Ox1 to self Head: atraumatic, normocephalic Eyes: EOMI intact Mouth: moist mucous membranes Cardiac: RRR no murmurs or gallop Respiratory: CTAB no wheeze or rales Abdomen: Soft, not distended, no tenderness, no masses or organomegaly Extremities: minimal swelling in left hand. No erythema. Neuro: residential weakness of left side in upper extremity especially with occasional caregiver strength which is decreased bilaterally, minimal facial drooping on the left, CN II- intact, sensation intact bilaterally in both upper and lower extremities. - Patient Status Disposition: Transfer SNF Condition: Fair Functional capacity at discharge: uses cane/walker Overall status at discharge: patient is not back to baseline - Discharge Instructions Instructions: Ischemic Stroke (DC), Self Care Measures After a Stroke (DC) Follow Up With: Marquis Cook MD [Primary Care Provider] - (patient is going to [facility]) Neurology [facility] [Provider Group] Additional Instructions: Please continue to check blood pressures three times a day. Please follow-up outpatient with Neurology. - Diet and Activity Activity: as per physical therapy Diet: diabetic diet <ManpreetPaula - Last Filed: 12/16/17 15:12> Date of Encounter: 12/16/17 - Discharge Diagnosis (1) Encephalopathy Status: Acute (2) Diabetes mellitus Status: Chronic Qualifiers: Diabetes mellitus type: type 2 Diabetes mellitus [facility] insulin use: without dedicated intermodal truck driver use Diabetes mellitus complication status: with unspecified complications Qualified Code(s): E11.8 - Type 2 diabetes mellitus with unspecified complications (3) CVA (cerebrovascular accident) Status: Acute Qualifiers: CVA mechanism: unspecified Qualified Code(s): I63.9 - Cerebral infarction, unspecified (4) HTN (hypertension) Status: Chronic Qualifiers: Hypertension type: essential hypertension Qualified Code(s): I10 - Essential (primary) hypertension (5) Hypokalemia Status: Acute (6) Cerebrovascular accident (CVA) of left thalamus Status: Acute (7) Cellulitis of left hand Status: Ruled-out Hospital course: Ms. Gramajo is a 72 year old female - Time Spent with Patient Total time spent providing and/or coordinating discharge services: Date of admission: 12/09/17 19:35 Primary care physician: Marquis Cook MD Consults: 12/09/17 18:46 Consult to Nutrition [CONS] Routine Comment: Consulting Provider: NUTRITION Reason for Dietary Consult: MST Score Consult to Subassembler [CONS] Routine Reason for SW Consult: [facility] 12/10/17 02:37 Consult to Speech Therapy [CONS] Routine Comment: Evaluate, develop and implement POC Reason for Consult: Suspect Acute stroke. Patient NPO. Assess ability to take PO. Call Completed: No 12/10/17 02:38 Consult to Neurology [CONS] Routine Consulting Provider: [facility] Reason for Consult: Possible recurrent acute stroke Call Completed: No 12/10/17 15:29 Consult to Occupational Therapy [CONS] Routine Comment: Evaluate, develop and implement POC Reason for Consult: eval for ecf will need pre cert Does patient have active BEDREST order?: No Is patient medically & hemodynamically stable?: Yes Consult to Physical Therapy [CONS] Routine Comment: Evaluate, develop and implement POC Reason for Consult: eval for ecf will need pre cert Does patient have active BEDREST order?: No Is patient medically & hemodynamically stable?: Yes - Constitutional Vitals: Temp Pulse Resp BP Pulse Ox 97.6 F 88 16 128/76 95 12/16/17 12:46 12/16/17 12:46 12/16/17 12:46 12/16/17 12:46 12/16/17 12:46 - Attending Attestation I have seen and examined this pt independently. I have discussed with resident physician Dr Turpin regarding the discharge and follow up plan. Agree with the documentation. 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 Neurology consult saw pt. Will cont ASA, plavix and statin. Cont BP control. Cont PT/OT.
--- NOTE | 2017-12-15 16:54 | Internal Med Progress Note ---
<PapiMikala - Last Filed: 12/15/17 16:50> Hospitalist Progress Note - Encounter Date of Encounter: 12/15/17 Time of Encounter: 13:00 - Subjective Interval History: Ms. Gramajo is a 72 y/o F with known HTN, DM2, HLD with recent CVA left occipital , thalamic and left periventricular matter associated with left residual paralysis pt was sent to our hospital from [facility] facility worsening RUE weakness, confusion, memory problems and Left UE pain. Today, Pt is sleepy s/p MARKIE. She did not want to cooperate for a neuro exam due to sleepiness. - Exam Vitals: Temp Pulse Resp BP Pulse Ox 98.5 F 78 16 162/88 93 12/15/17 15:13 12/15/17 15:13 12/15/17 15:13 12/15/17 15:13 12/15/17 15:13 Exam: General : no distress, sleep, not answering questions Cardiac: RRR no murmurs or gallop Respiratory: CTAB no wheeze or rales Abdomen: Soft, not distended, no tenderness, no masses or organomegaly Extremities: minimal swelling in left hand. No erythema. Neuro: Unable to assess weakness due to patient being sleepy - Assessment and Plan (1) Cerebrovascular accident (CVA) of left thalamus Current Visit: Yes Status: Acute Assessment and Plan: CVA most likely embolic stroke but no specific etiology. Recurrent and multiple infarctions including left thalamus, left hippocampal tail, deep frontal white matter. Could be posterior cerebral artery occlusion but also anterior infarctions, so most likely embolic. MARKIE showed no cardiac cause for CVA. Patient has been on tele during hospital stay without afib or arrhythmia but will send home on an event monitor for 30 days to further r/o afib/arrhythmic causes. Will need to continue ASA and plavix. Plan: - continue aspirin, Plavix and statin for now - not a candidate for anticoagulation due to high risk for brain hemorrhage as multiple recurrent strokes - continue PT OT eval - diet: regular - DISPO: Can be discharged to ECF when placement is available. Will need event monitor at d/c. (2) Encephalopathy Current Visit: Yes Status: Acute Assessment and Plan: Unable to assess today due to drowsiness s/p MARKIE from versed (3) Cellulitis of left hand Current Visit: Yes Status: Acute Assessment and Plan: Continue keflex (day 2) for a total of 7 days. (4) Diabetes mellitus Current Visit: Yes Status: Chronic Assessment and Plan: currently well controlled on low SSI (5) HTN (hypertension) Current Visit: Yes Status: Chronic Assessment and Plan: Overnight, elevated blood pressures, max : 182/93. Plan: - Increase metoprolol 25mg BID to 50mg BID - Norvasc 10mg daily - lisinopril 20mg daily - hydralazine 10mg IV Q6H prn (6) Hypokalemia Current Visit: Yes Status: Resolved Assessment and Plan: Replaced K 40meq due potassium of 3.2. Recheck tomorrow. (7) DVT prophylaxis Current Visit: No Status: Resolved Assessment and Plan: Heparin SQ DVT Prophylaxis: On subcutaneous heparin. - Time Spent with Patient Total time spent is greater than 50% in coordination of care (as documented) at patient's floor/unit and/or counseling patient: Internal Medicine: Result - Labs CBC & Chem 7: 12/15/17 06:11 12/15/17 06:11 Labs: Short CBC 12/15/17 Range/Units 06:11 WBC 9.9 (4.3-11.1) K/mcL Hgb 12.8 (11.5-15.4) g/dL Hct 38.3 (35.3-44.9) % Plt Count 294 (140-400) K/mcL Neutrophils # 7.6 (1.6-8.9) K/mcL BMP 12/15/17 06:11 Sodium 138 Potassium 3.2 L Chloride 98 Carbon Dioxide 30 H BUN 18 Creatinine 0.78 Glucose 153 H Calcium 9.5 Consult Discharge Plan - Plan Referrals: Marquis Cook MD [Primary Care Provider] - (patient is going to [facility]) Prescriptions: amLODIPine [Norvasc] 10 mg PO DAILY #30 tablet Metoprolol Tartrate [Lopressor] 50 mg PO BID #60 tablet <June Luis - Last Filed: 12/15/17 18:45> Hospitalist Progress Note - Encounter Date of Encounter: 12/15/17 - Exam Vitals: Temp Pulse Resp BP Pulse Ox 98.5 F 78 16 162/88 93 12/15/17 15:13 12/15/17 15:13 12/15/17 15:13 12/15/17 15:13 12/15/17 15:13 - Assessment and Plan (1) Cerebrovascular accident (CVA) of left thalamus Current Visit: Yes Status: Acute (2) HTN (hypertension) Current Visit: Yes Status: Chronic (3) Cellulitis of left hand Current Visit: Yes Status: Acute (4) CVA (cerebrovascular accident) Current Visit: Yes Status: Acute (5) Encephalopathy Current Visit: Yes Status: Acute (6) Diabetes mellitus Current Visit: Yes Status: Chronic (7) Hypokalemia Current Visit: Yes Status: Resolved - Time Spent with Patient Total time spent is greater than 50% in coordination of care (as documented) at patient's floor/unit and/or counseling patient: Internal Medicine: Result - Labs CBC & Chem 7: 12/15/17 06:11 12/15/17 06:11 Labs: Short CBC 12/15/17 Range/Units 06:11 WBC 9.9 (4.3-11.1) K/mcL Hgb 12.8 (11.5-15.4) g/dL Hct 38.3 (35.3-44.9) % Plt Count 294 (140-400) K/mcL Neutrophils # 7.6 (1.6-8.9) K/mcL BMP 12/15/17 06:11 Sodium 138 Potassium 3.2 L Chloride 98 Carbon Dioxide 30 H BUN 18 Creatinine 0.78 Glucose 153 H Calcium 9.5 - Attending Attestation I examined this patient and my medical decision-making was reviewed with the Resident Physician Dr. Turpin. I agree with the documented findings, disposition and treatment plan as described except to the extent set forth below. Ms. Gramajo is a 72 y/o F with known HTN, DM2 HLD with recent CVA left occipital, thalamic and left periventricular matter associated with left residual paralysis pt was sent to our hospital from [place] swing bed facility worsening RUE weakness, confusion, memory problems and Left UE pain. Pt is alert , awake and O x 3, She seems to be more with it today. Left-hand swelling and pain also better today Gen: A, A, O x self Chest: Diminished BS b/l, No crackles Heart: S1S2+ a/p 1. Acute left thalamic, left hippocampal tail, deep frontal white matter s/p MARKIE - No atrial thrombi cont ASA + Plavix + statin Need event / holter monitor for 4 weeks anf f/u with Card as an out pt <Mikala Turpin - Last Filed: 12/15/17 16:50> (4) Diabetes mellitus Qualifiers: Diabetes mellitus type: type 2 Diabetes mellitus joint terminal attack controller insulin use: without joint terminal attack controller use Diabetes mellitus complication status: with unspecified complications Qualified Code(s): E11.8 - Type 2 diabetes mellitus with unspecified complications (5) HTN (hypertension) Qualifiers: Hypertension type: essential hypertension Qualified Code(s): I10 - Essential (primary) hypertension <June Luis - Last Filed: 12/15/17 18:45> (2) HTN (hypertension) Qualifiers: Hypertension type: essential hypertension Qualified Code(s): I10 - Essential (primary) hypertension (4) CVA (cerebrovascular accident) Qualifiers: CVA mechanism: unspecified Qualified Code(s): I63.9 - Cerebral infarction, unspecified (6) Diabetes mellitus Qualifiers: Diabetes mellitus type: type 2 Diabetes mellitus joint terminal attack controller insulin use: without skilled nursing use Diabetes mellitus complication status: with unspecified complications Qualified Code(s): E11.8 - Type 2 diabetes mellitus with unspecified complications
[2017-12-16] MEDS: *HR* Heparin 5,000 UNIT/ML VIAL SQ SCH (06:06)
[2017-12-16 06:20] LABS: BUN/Creatinine Ratio 20 (6-26); Blood Urea Nitrogen 15 mg/dL (8-23); Calcium 9.4 mg/dL (8.6-10.3); Carbon Dioxide 29 mEq/L (23-29); Chloride 100 mEq/L (98-107); Glucose 129 mg/dL (70-105); Osmolality,Calculated 289 (280-300); Potassium 3.3 mEq/L (3.5-5.1); Sodium 138 mEq/L (136-145); eGFR For Non-African Americans > 60 (> 60)
[2017-12-16] MEDS ORDERED: Potassium Chloride Elixir 20 MEQ/15 ML UDC PO ONE (08:20)
[2017-12-16] MEDS: cephALEXin 500 MG CAPSULE PO SCH (09:08)
[2017-12-16] MEDS: Aspirin Enteric Coated 81 MG Tablet PO SCH (09:09)
[2017-12-16] MEDS: amLODIPine 5 MG TABLET PO SCH (09:09)
[2017-12-16] MEDS: Insulin LISPRO 300 UNITS/3 ML VIAL SQ SCH ×2 (09:12→12:35)
[2017-12-16 12:49] VITALS: BP 128/76
[2017-12-16] MEDS: *HR* HYDROcodone/Acet 5/325 mg TABLET PO PRN (12:51)
--- NOTE | 2017-12-16 13:05 | Physician Discharge Referral ---
ExtendedCare Referral Info Transfer To: [place] Provider in Charge: Manpreet Provider in Charge after Transfer: PCP Institutional Level of Care: Skilled - Diagnosis (1) Cellulitis of left hand Priority: Secondary Status: Ruled-out (2) Cerebrovascular accident (CVA) of left thalamus Priority: Primary Status: Acute (3) Diabetes mellitus Priority: Secondary Status: Chronic (4) DVT prophylaxis Priority: Secondary Status: Resolved (5) Encephalopathy Priority: Secondary Status: Acute (6) HTN (hypertension) Priority: Secondary Status: Chronic (7) Hypokalemia Priority: Secondary Status: Acute Expected Duration of Placement: 3-4 weeks Prognosis: Fair Aware of Diagnosis: Patient Aware of Prognosis: Patient - Transfer Medications Prescriptions: amLODIPine [Norvasc] 10 mg PO DAILY #30 tablet Metoprolol Tartrate [Lopressor] 50 mg PO BID #60 tablet Oxycodone HCl/Acetaminophen [Percocet 5-325 mg Tablet] 1 each PO TID PRN 5 Days #15 tablet PRN Reason: Pain Home Medications: Allopurinol [Zyloprim 100 MG] 100 mg PO DAILY 06/24/16 [History] Atorvastatin [Lipitor] 40 mg PO HS 06/24/16 [History] Cholecalciferol (Vitamin D3) [Vitamin D3] 1,000 unit PO DAILY 06/24/16 [History] Clopidogrel [Plavix] 75 mg PO DAILY 06/24/16 [History] DiphenhydraMINE [Benadryl] 25 mg PO Q4HR PRN 06/24/16 [History] Lisinopril [Zestril] 10 mg PO DAILY 06/24/16 [History] Sertraline [Zoloft] 100 mg PO DAILY 06/24/16 [History] Lansoprazole [Prevacid] 30 mg PO DAILY 12/01/17 [History] Sitagliptin Phosphate [Januvia] 50 mg PO DAILY 12/01/17 [History] Aspirin Enteric Coated [Aspirin EC] 81 mg PO DAILY tablet. 12/05/17 [Rx] Furosemide [Lasix] 10 mg PO DAILY 12/10/17 [History] Nadolol [Nadolol] 20 mg PO TID 12/10/17 [History] Metoprolol Tartrate [Lopressor] 50 mg PO BID #60 tablet 12/15/17 [Rx] amLODIPine [Norvasc] 10 mg PO DAILY #30 tablet 12/15/17 [Rx] Oxycodone HCl/Acetaminophen [Percocet 5-325 mg Tablet] 1 each PO TID PRN 5 Days #15 tablet 12/16/17 [Rx] Allergies/Adverse Reactions: 3 Allergy/AdvReac Type Severity Reaction Status Date / Time azithromycin [From Zithromax] AdvReac Vomiting Verified 12/10/17 09:42 ciprofloxacin [From Cipro] AdvReac Vomiting Verified 12/10/17 09:42 sulfamethoxazole AdvReac Vomiting Verified 12/10/17 09:42 [From Bactrim] trimethoprim [From Bactrim] AdvReac Vomiting Verified 12/10/17 09:42 - Respiratory Orders Smoking Cessation: Smoking cessation has been advised. For more information, call the [employer] Tobacco Quit Line at 2-390-UTEQ-NOW. - Lab Orders Lab Orders: Other (include drug levels w/frequency) (BMP to check potassium in 1 week) - Ancillary Orders May use pressure relief devices daily prn, May go on JUAN w/family/respon constitution party w /meds at nurse discretion PRN, May have alcoholic beverages, May consult with Dentist, Shear Helper, Fitness Teacher PRN - Advance Directives Code Status: Full Code - Mobility Orders Ambulate - Rehabiliation Orders Rehab Potential: Fair Rehab Orders: ROM Exercises, Evaluation for Physical Therapy, Evaluation for Occupational Therapy, Evaluation for Speech Therapy - Treatments Skin tear care topically daily PRN per policy, May check for fecal impaction rectally daily PRN, Fleet enema rectally every other day PRN cleansing purposes - Diet Orders No Concentrated Sweets CERTIFICATION: I certify that the transfer of the above named patient to an Extended Care Facility is necessary for the continuing treatment of the diagnosis listed. The above information is true and accurate reflection of patient's current condition. Confidential - Redisclosure prohibited without a patient's written consent.
== END 2017-12-16 15:14 | DRG 64 ==
LOC: 2ANU → SUATTDRO 19:35 → 2ANU 12-15 06:25
PROVIDERS: ADMIT Internal Medicine; ATTEND Internal Medicine

== ENCOUNTER 2019-06-09 18:58 | Inpatient (IN) ==
[2019-06-09] MEDS: 0.9 % Sodium Chloride 1,000 ML IVC ONE ×2 (19:27→20:11)
[2019-06-09] MEDS ORDERED: Piperacillin/Tazobactam 3.375 GM in Water for inj. (sterile) 20 ML IVP ONE (19:40)
[2019-06-09] MEDS ORDERED: 0.9 % Sodium Chloride 1,000 ML IVC ONE ×2 (19:40→20:05)
[2019-06-09 19:56] LABS: Basophils % 0.2 %; Eosinophils # 0.1 K/mcL (0.0-0.6); Eosinophils % 0.4 %; Hematocrit 36.4 % (35.3-44.9); Hemoglobin 12.1 g/dL (11.5-15.4); Immature Granulocytes % 0.6 % (0-4); Lymphocytes # 0.6 K/mcL (0.6-4.6); Lymphocytes % 4.5 %; Mean Corpuscular HGB Conc 33.2 g/dL (31.6-35.5); Mean Corpuscular Hemoglobin 31.5 pg (28.0-33.3); Mean Corpuscular Volume 94.8 fL (83.0-100.0); Mean Platelet Volume 8.9 fL (9.4-12.4); Monocytes # 0.8 K/mcL (0.0-1.3); Monocytes % 5.9 %; Neutrophils # 11.4 K/mcL (1.6-8.9); Platelet Count 151 K/mcL (140-400); Red Blood Count 3.84 M/mcL (3.82-4.97); Red Cell Distribution Width 13.8 % (11.5-14.5); Segmented Neutrophils % 88.4 %; White Blood Count 12.9 K/mcL (4.3-11.1)
[2019-06-09] MEDS ORDERED: 0.9 % Sodium Chloride 1,000 ML ONE (20:04)
[2019-06-09 20:07] LABS: Albumin 4.5 g/dL (3.5-5.7); Albumin/Globulin Ratio 1.6 (1.1-2.2); Bilirubin,Direct 0.1 mg/dL (0.0-0.2); Bilirubin,Indirect 0.5 mg/dL (0.0-1.0); Bilirubin,Total 0.6 mg/dL (0.3-1.0); Calcium 10.1 mg/dL (8.6-10.3); Globulin 2.8 g/dL (2.4-3.5); Magnesium 1.5 mg/dL (1.6-2.6); Potassium 5.3 mEq/L (3.5-5.1); Total Protein 7.3 g/dL (6.4-8.9); Troponin I 0.03 ng/mL (< 0.04)
[2019-06-09] MEDS ORDERED: Norepinephrine 4 MG in 0.9 % Sodium Chloride 250 ML IVC SCH (20:15)
[2019-06-09] MEDS ORDERED: *HR* Norepinephrine 4 MG/4 ML VIAL IVC ONE (20:18)
[2019-06-09] MEDS ORDERED: 0.9 % Sodium Chloride 250 ML ONE (20:18)
[2019-06-09 22:19] LABS: Bilirubin,Urine Negative (Negative); Blood,Urine Negative (Negative); Clarity,Urine Clear (Clear); Color,Urine Yellow (Yellow); Glucose,Urine (UA) Normal (Normal); Ketones,Urine Negative (Negative); Leukocyte Esterase,Urine Trace (Negative); Nitrite,Urine Negative (Negative); Protein,Urine Negative (Neg-Trace); Specific Gravity,Urine 1.015 (1.010-1.025); Urobilinogen,Urine Normal (Normal)
[2019-06-09 22:22] LABS: Bacteria,Urine None Seen per hpf (None-Few); Hyaline Casts,Urine None Seen per lpf (None-Few); RBC,Urine 0-3 per hpf (0-3); Squamous Epithelial Cell,Urine Moderate per lpf (None-Few); WBC,Urine 0-3 per hpf (0-3)
[2019-06-10] MEDS ORDERED: Naloxone 0.4 MG/ML INJ IVP PRN (01:10)
[2019-06-10 02:30] LABS: Hematocrit 30.8 % (35.3-44.9); Mean Corpuscular HGB Conc 32.8 g/dL (31.6-35.5); Mean Corpuscular Hemoglobin 31.6 pg (28.0-33.3); Mean Corpuscular Volume 96.3 fL (83.0-100.0); Mean Platelet Volume 9.5 fL (9.4-12.4); Platelet Count 138 K/mcL (140-400); Red Cell Distribution Width 13.8 % (11.5-14.5); White Blood Count 11.7 K/mcL (4.3-11.1)
[2019-06-10 02:41] LABS: Hemoglobin 10.1 g/dL (11.5-15.4)
[2019-06-10] MEDS ORDERED: Dextrose Gel 15 GM/37.5 ML TUBE PO PRN ×2 (02:47)
[2019-06-10] MEDS ORDERED: *HR* Dextrose 50 % in Water (Syg) 50 ML SYRINGE IVP PRN (02:47)
[2019-06-10] MEDS ORDERED: D5% in Water 1,000 ML IVC PRN (02:47)
[2019-06-10 02:52] LABS: Calcium 8.6 mg/dL (8.6-10.3); Potassium 4.7 mEq/L (3.5-5.1)
[2019-06-10 02:54] LABS: Troponin I 0.04 ng/mL (< 0.04)
[2019-06-10] MEDS ORDERED: 0.9 % Sodium Chloride 1,000 ML IVC ONE (05:14)
[2019-06-10] MEDS ORDERED: *HR* Heparin 5,000 UNIT/ML VIAL SQ SCH (06:00)
[2019-06-10 11:03] LABS: Acinetobacter baumannii by PCR Not Detected (Not Detect); Candida albicans by PCR Not Detected (Not Detect); Candida glabrata by PCR Not Detected (Not Detect); Candida krusei by PCR Not Detected (Not Detect); Candida parapsilosis by PCR Not Detected (Not Detect); Candida tropicalis by PCR Not Detected (Not Detect); Enterobacter cloacae Cmplx PCR Not Detected (Not Detect); Enterococcus by PCR Not Detected (Not Detect); Escherichia coli by PCR Not Detected (Not Detect); Klebsiella oxytoca by PCR Not Detected (Not Detect); Klebsiella pneumoniae by PCR DETECTED (Not Detect); Proteus by PCR Not Detected (Not Detect); Pseudomonas aeruginosa by PCR Not Detected (Not Detect); Serratia marcescens by PCR Not Detected (Not Detect); Staphylococcus aureus by PCR Not Detected (Not Detect); Staphylococcus by PCR Not Detected (Not Detect); Streptococcus agalactiae(B)PCR Not Detected (Not Detect); Streptococcus by PCR Not Detected (Not Detect); Streptococcus pneumoniae PCR Not Detected (Not Detect); Streptococcus pyogenes (A) PCR Not Detected (Not Detect); blaKPC Carbapenem-Resist Gene Not Detected (Not Detect); mecA Methicillin-Resist Gene Not Detected (Not Detect); vanA/B Vancomycin-Resist Genes Not Detected (Not Detect)
[2019-06-10] MEDS: Insulin LISPRO 300 UNITS/3 ML VIAL SQ SCH ×4 (11:31→22:31)
[2019-06-10] MEDS: cefTRIAXone 1,000 MG in Water for inj. (sterile) 10 ML IVP SCH (12:46)
[2019-06-11 08:41] LABS: Basophils % 0.5 %; Eosinophils # 0.2 K/mcL (0.0-0.6); Eosinophils % 2.4 %; Hematocrit 30.6 % (35.3-44.9); Hemoglobin 10.1 g/dL (11.5-15.4); Immature Granulocytes % 0.5 % (0-4); Lymphocytes # 1.2 K/mcL (0.6-4.6); Lymphocytes % 18.1 %; Mean Corpuscular Volume 96.8 fL (83.0-100.0); Mean Platelet Volume 9.4 fL (9.4-12.4); Monocytes # 0.5 K/mcL (0.0-1.3); Monocytes % 7.9 %; Neutrophils # 4.7 K/mcL (1.6-8.9); Platelet Count 121 K/mcL (140-400); Red Blood Count 3.16 M/mcL (3.82-4.97); Red Cell Distribution Width 13.5 % (11.5-14.5); Segmented Neutrophils % 70.6 %; White Blood Count 6.6 K/mcL (4.3-11.1)
[2019-06-11 09:00] LABS: Calcium 9.3 mg/dL (8.6-10.3); Potassium 4.3 mEq/L (3.5-5.1)
[2019-06-11 09:25] LABS: Amphetamine Screen,Urine Negative ng/mL (Cutoff=1000); Barbiturate Screen,Urine Negative ng/mL (Cutoff=200)
[2019-06-11 09:26] LABS: Benzodiazepines Screen,Urine Negative ng/mL (Cutoff=300); Cannabinoid Screen,Urine Negative ng/mL (Cutoff = 50); Cocaine Screen,Urine Negative ng/mL (Cutoff= 300); Opiate Screen,Urine Negative ng/mL (Cutoff=300); Phencyclidine Screen,Urine Negative ng/mL (Cutoff=25)
[2019-06-11] MEDS: cefTRIAXone 1,000 MG in Water for inj. (sterile) 10 ML IVP SCH (09:56)
[2019-06-11] MEDS: Aspirin Enteric Coated 81 MG Tablet PO SCH (09:58)
[2019-06-11] MEDS: amLODIPine 5 MG TABLET PO SCH (10:00)
[2019-06-11] MEDS: Insulin LISPRO 300 UNITS/3 ML VIAL SQ SCH ×4 (10:01→21:37)
[2019-06-12 01:22] LABS: Basophils % 0.3 %; Eosinophils # 0.1 K/mcL (0.0-0.6); Eosinophils % 1.6 %; Hematocrit 30.7 % (35.3-44.9); Hemoglobin 10.4 g/dL (11.5-15.4); Immature Granulocytes % 0.5 % (0-4); Lymphocytes # 1.3 K/mcL (0.6-4.6); Lymphocytes % 17.8 %; Mean Corpuscular HGB Conc 33.9 g/dL (31.6-35.5); Mean Corpuscular Volume 94.5 fL (83.0-100.0); Mean Platelet Volume 9.3 fL (9.4-12.4); Monocytes # 0.6 K/mcL (0.0-1.3); Monocytes % 7.3 %; Neutrophils # 5.5 K/mcL (1.6-8.9); Platelet Count 135 K/mcL (140-400); Red Blood Count 3.25 M/mcL (3.82-4.97); Red Cell Distribution Width 13.3 % (11.5-14.5); Segmented Neutrophils % 72.5 %; White Blood Count 7.5 K/mcL (4.3-11.1)
[2019-06-12 01:36] LABS: BUN/Creatinine Ratio 17 (6-26); Blood Urea Nitrogen 18 mg/dL (8-23); Calcium 9.3 mg/dL (8.6-10.3); Carbon Dioxide 22 mEq/L (23-29); Chloride 109 mEq/L (98-107); Glucose 90 mg/dL (70-105); Osmolality,Calculated 291 (280-300); Potassium 3.9 mEq/L (3.5-5.1); Sodium 140 mEq/L (136-145); eGFR For African Americans > 60 (> 60); eGFR For Non-African Americans 51 (> 60)
[2019-06-12] MEDS: Insulin LISPRO 300 UNITS/3 ML VIAL SQ SCH ×4 (07:30→22:26)
[2019-06-12] MEDS: cefTRIAXone 1,000 MG in Water for inj. (sterile) 10 ML IVP SCH (10:41)
[2019-06-12] MEDS: Aspirin Enteric Coated 81 MG Tablet PO SCH (10:42)
[2019-06-12] MEDS: amLODIPine 5 MG TABLET PO SCH (10:43)
[2019-06-12] MEDS ORDERED: Acetaminophen 325 MG TABLET PO PRN (21:18)
[2019-06-13] MEDS: Insulin LISPRO 300 UNITS/3 ML VIAL SQ SCH (10:55)
[2019-06-13] MEDS: cefTRIAXone 1,000 MG in Water for inj. (sterile) 10 ML IVP SCH (11:07)
[2019-06-13] MEDS: Aspirin Enteric Coated 81 MG Tablet PO SCH (11:08)
[2019-06-13] MEDS: amLODIPine 5 MG TABLET PO SCH (11:08)
[2019-06-13 11:18] VITALS: BP 121/66
== END 2019-06-13 12:05 | disposition home health service (06) | DRG 71 ==
LOC: 2NENU 18:58 → EMEROOARM 18:58 → SUATTDRO 23:59 → 2NENU 06-10 00:28
PROVIDERS: ADMIT Internal Medicine; ATTEND Internal Medicine

== ENCOUNTER 2019-09-20 06:10 | Inpatient (IN) ==
[2019-09-20] MEDS ORDERED: CeFAZolin Syr 2,000MG/20 ML 2,000 MG/20 ML SYRINGE IVPB ONE (06:37)
[2019-09-20] MEDS ORDERED: Ringers Solution, Lactated 1,000 ML IVC SCH (06:45)
[2019-09-20] MEDS ORDERED: *HR* Midazolam HCl 2 MG/2 ML VIAL ONE (06:59)
[2019-09-20] MEDS ORDERED: Dexamethasone 4 MG/ML VIAL ONE (06:59)
[2019-09-20] MEDS ORDERED: *HR* Rocuronium Bromide 50 MG/5 ML VIAL ONE (06:59)
[2019-09-20] MEDS ORDERED: Lidocaine -MPF 2% 2 ML VIAL ONE (06:59)
[2019-09-20] MEDS ORDERED: Ondansetron 4 MG/2 ML VIAL ONE (06:59)
[2019-09-20] MEDS ORDERED: *HR* Propofol 200 MG/20 ML VIAL IVP ONE (06:59)
[2019-09-20] MEDS ORDERED: *HR* FentaNYL (PF) 100 MCG/2 ML VIAL ONE ×3 (06:59→08:53)
[2019-09-20] MEDS ORDERED: *HR* Succinylcholine 200 MG/10 ML VIAL IVP ONE (06:59)
[2019-09-20] MEDS ORDERED: Pregabalin 75 MG CAPSULE PO ONE (07:04)
[2019-09-20] MEDS ORDERED: Famotidine 20 MG/2 ML VIAL IVP ONE (07:04)
[2019-09-20] MEDS ORDERED: Acetaminophen IV 1,000 MG/100 ML INFUS..BTL IVPB ONE (07:04)
[2019-09-20] MEDS ORDERED: *HR* Labetalol 20 MG/4 ML SYRINGE IVP PRN (07:05)
[2019-09-20] MEDS ORDERED: *HR* OxyCODONE Immed Rel 5 MG TABLET PO PRN ×2 (07:05→11:45)
[2019-09-20] MEDS ORDERED: *HR* Promethazine 25 MG/ML VIAL IVP PRN (07:05)
[2019-09-20] MEDS ORDERED: Ondansetron 4 MG/2 ML VIAL IVP ONE (07:05)
[2019-09-20] MEDS ORDERED: *HR* HYDROmorphone PF 0.5 MG/0.5 ML SYRINGE IVP PRN (07:05)
[2019-09-20] MEDS ORDERED: 0.9 % Sodium Chloride 500 ML IVC SCH (07:15)
[2019-09-20] MEDS ORDERED: Heparin 1,000 UNITS/500 mL 500 ML ONE (07:28)
[2019-09-20] MEDS ORDERED: Lacri-Lube 3.5 GM TUBE ONE (07:53)
[2019-09-20] MEDS ORDERED: *HR* PHENYLEPHRINE 1,000 MCG/10 ML SYRINGE IVP ONE (07:54)
[2019-09-20] MEDS ORDERED: *HR* Phenylephrine 10 MG/ML VIAL ONE (07:59)
[2019-09-20] MEDS ORDERED: *HR* Labetalol 20 MG/4 ML SYRINGE IVP ONE (08:51)
[2019-09-20] MEDS ORDERED: D5% in Water 1,000 ML IVC PRN (11:45)
[2019-09-20] MEDS ORDERED: Acetaminophen 325 MG TABLET PO PRN (11:45)
[2019-09-20] MEDS ORDERED: *HR* Dextrose 50 % in Water (Syg) 50 ML SYRINGE IVP PRN (11:45)
[2019-09-20] MEDS ORDERED: Ondansetron 4 MG/2 ML VIAL IVP PRN (11:45)
[2019-09-20] MEDS ORDERED: Naloxone 0.4 MG/ML INJ IVP PRN (11:45)
[2019-09-20] MEDS ORDERED: Dextrose Gel 15 GM/37.5 ML TUBE PO PRN ×2 (11:45)
[2019-09-20] MEDS: 0.9 % Sodium Chloride 1,000 ML IVC SCH ×2 (12:54→20:28)
[2019-09-20] MEDS: Insulin LISPRO 300 UNITS/3 ML VIAL SQ SCH ×2 (13:44→17:19)
[2019-09-20 15:31] LABS: Hematocrit 33.4 % (35.3-44.9)
[2019-09-20] MEDS: CeFAZolin 2 GM/120 ML BAG IVPB SCH ×2 (15:36→23:36)
[2019-09-21] MEDS: 0.9 % Sodium Chloride 1,000 ML IVC SCH (04:15)
[2019-09-21 05:41] LABS: Basophils % 0.1 %; Hemoglobin 10.5 g/dL (11.5-15.4); Immature Granulocytes % 0.4 % (0-4); Lymphocytes % 9.9 %; Mean Corpuscular HGB Conc 32.8 g/dL (31.6-35.5); Mean Corpuscular Hemoglobin 31.5 pg (28.0-33.3); Mean Corpuscular Volume 96.1 fL (83.0-100.0); Mean Platelet Volume 9.5 fL (9.4-12.4); Monocytes # 0.7 K/mcL (0.0-1.3); Monocytes % 6.4 %; Neutrophils # 8.5 K/mcL (1.6-8.9); Platelet Count 126 K/mcL (140-400); Red Blood Count 3.33 M/mcL (3.82-4.97); Red Cell Distribution Width 14.1 % (11.5-14.5); Segmented Neutrophils % 83.2 %; White Blood Count 10.2 K/mcL (4.3-11.1)
[2019-09-21 05:55] LABS: Calcium 8.6 mg/dL (8.6-10.3); Potassium 4.9 mEq/L (3.5-5.1)
[2019-09-21] MEDS: Insulin LISPRO 300 UNITS/3 ML VIAL SQ SCH ×3 (08:15→17:04)
[2019-09-21] MEDS: amLODIPine 5 MG TABLET PO SCH (08:18)
[2019-09-21] MEDS: allopurinoL 100 MG TABLET PO SCH (08:18)
[2019-09-21] MEDS ORDERED: Haloperidol Lactate 5 MG/ML VIAL IVP PRN (16:49)
[2019-09-21] MEDS: Acetaminophen IV 1,000 MG/100 ML INFUS..BTL IVPB SCH (19:54)
[2019-09-21 22:00] LABS: Bilirubin,Urine Negative (Negative); Blood,Urine Negative (Negative); Clarity,Urine Clear (Clear); Color,Urine Yellow (Yellow); Glucose,Urine (UA) Normal (Normal); Ketones,Urine Negative (Negative); Leukocyte Esterase,Urine Negative (Negative); Nitrite,Urine Negative (Negative); Protein,Urine Negative (Neg-Trace); Specific Gravity,Urine 1.014 (1.010-1.025); Urobilinogen,Urine Normal (Normal)
[2019-09-22] MEDS: Acetaminophen IV 1,000 MG/100 ML INFUS..BTL IVPB SCH ×3 (03:55→20:55)
[2019-09-22 05:28] LABS: Basophils % 0.2 %; Eosinophils % 0.5 %; Hematocrit 27.7 % (35.3-44.9); Hemoglobin 9.1 g/dL (11.5-15.4); Immature Granulocytes % 0.6 % (0-4); Lymphocytes # 1.8 K/mcL (0.6-4.6); Lymphocytes % 20.8 %; Mean Corpuscular HGB Conc 32.9 g/dL (31.6-35.5); Mean Corpuscular Hemoglobin 31.4 pg (28.0-33.3); Mean Corpuscular Volume 95.5 fL (83.0-100.0); Mean Platelet Volume 9.6 fL (9.4-12.4); Monocytes # 0.7 K/mcL (0.0-1.3); Monocytes % 8.1 %; Neutrophils # 6.2 K/mcL (1.6-8.9); Platelet Count 115 K/mcL (140-400); Red Cell Distribution Width 14.6 % (11.5-14.5); Segmented Neutrophils % 69.8 %; White Blood Count 8.8 K/mcL (4.3-11.1)
[2019-09-22 05:47] LABS: Calcium 8.8 mg/dL (8.6-10.3); Potassium 4.4 mEq/L (3.5-5.1)
[2019-09-22] MEDS: amLODIPine 5 MG TABLET PO SCH (09:08)
[2019-09-22] MEDS: 0.9 % Sodium Chloride 1,000 ML IVC SCH ×2 (09:09→21:03)
[2019-09-22] MEDS: allopurinoL 100 MG TABLET PO SCH (09:09)
[2019-09-22] MEDS: Insulin LISPRO 300 UNITS/3 ML VIAL SQ SCH ×3 (09:34→17:36)
[2019-09-22 23:59] LABS: Protein/Creatinine Ratio,Urine 0.43 mg/mg (0.00-0.20)
[2019-09-23 01:27] LABS: Basophils % 0.3 %; Eosinophils # 0.1 K/mcL (0.0-0.6); Eosinophils % 1.7 %; Hematocrit 30.7 % (35.3-44.9); Hemoglobin 10.1 g/dL (11.5-15.4); Immature Granulocytes % 0.5 % (0-4); Lymphocytes # 1.4 K/mcL (0.6-4.6); Lymphocytes % 19.1 %; Mean Corpuscular HGB Conc 32.9 g/dL (31.6-35.5); Mean Corpuscular Volume 94.2 fL (83.0-100.0); Mean Platelet Volume 9.4 fL (9.4-12.4); Monocytes # 0.6 K/mcL (0.0-1.3); Monocytes % 8.2 %; Neutrophils # 5.2 K/mcL (1.6-8.9); Platelet Count 126 K/mcL (140-400); Red Blood Count 3.26 M/mcL (3.82-4.97); Red Cell Distribution Width 14.2 % (11.5-14.5); Segmented Neutrophils % 70.2 %; White Blood Count 7.4 K/mcL (4.3-11.1)
[2019-09-23 01:40] LABS: Calcium 8.7 mg/dL (8.6-10.3)
[2019-09-23] MEDS: Acetaminophen IV 1,000 MG/100 ML INFUS..BTL IVPB SCH (05:12)
[2019-09-23] MEDS: allopurinoL 100 MG TABLET PO SCH (07:49)
[2019-09-23] MEDS: amLODIPine 5 MG TABLET PO SCH (07:49)
[2019-09-23] MEDS: Insulin LISPRO 300 UNITS/3 ML VIAL SQ SCH ×2 (07:55→11:19)
[2019-09-23 10:32] VITALS: BP 128/74
== END 2019-09-23 12:42 | disposition home or self-care (01) | DRG 657 ==
LOC: SAMDAY 06:10 → 3ANU 12:02
PROVIDERS: ADMIT Urology; ATTEND Urology